=== PATIENT | male | born 1950 | race African-American/Black ===

== ENCOUNTER 2017-02-07 06:23 | Day surgery (SDC) | payer OTHER ==
--- NOTE | 2017-02-07 10:31 | Diag Imaging Result Document ---
PROCEDURE NAME: CHEST-2 VIEWS - 02/07/2017 INSPIRATORY AND EXPIRATORY CHEST, TWO VIEWS: COMPARISON: 01/26/2017. FINDINGS: Interval decrease in the size of the left pleural effusion. No postprocedural pneumothorax. There are small infiltrates bilaterally as well as atelectasis in the left base. Sternal wires are present and there are calcified right hilar lymph nodes. IMPRESSION: No postprocedural pneumothorax.
[2017-02-07 10:39] LABS: DIFF NEEDED? YES; SPECIMEN PLEURAL FLUID; WBC BF 1185 /cumm
[2017-02-07 10:42] VITALS: BP 166/66
[2017-02-07 10:45] LABS: MONOS 97 %; POLYS 3 %
[2017-02-07 11:27] LABS: TOTAL PROT BODY FLUID 3.3 g/dL
--- NOTE | 2017-02-07 15:05 | OPERATIVE NOTE ---
PROCEDURE DATE: 02/07/2017 PROCEDURE PERFORMED: Thoracentesis from the left hemithorax. CLINICAL INDICATIONS: Recurrent left-sided pleural effusion. SURGEON: Von Wei MD HISTORY OF PRESENT ILLNESS: The left hemithorax was evaluated under ultrasonography. Large area of pleural effusion. She was identified by the pawn broker and marked appropriately. The site was prepped and draped in the usual sterile fashion. Local anesthesia was achieved with 1% lidocaine. A plastic catheter was introduced into the left hemithorax with the aid of a stainless steel trocar. When pleural fluid was identified, the catheter was advanced and the trocar was retracted, 1300 mL of tea color fluid (with a slight red tint) was aspirated without difficulty. Pleural fluid will be sent for chemistries, white blood count, cultures, and cytology. The patient tolerated the procedure without difficulty. Postprocedure chest x-ray is pending.
== END 2017-02-07 10:46 | disposition home or self-care (01) ==
LOC: OPS 06:23
PROVIDERS: ATTEND Internal Medicine Pulmonary Disease
DX: J94.8 Other specified pleural conditions (principal); R06.09 Other forms of dyspnea; N18.3 Chronic kidney disease, stage 3 (moderate); E11.22 Type 2 diabetes mellitus with diabetic chronic kidney disease; E11.40 Type 2 diabetes mellitus with diabetic neuropathy, unspecified; I12.9 Hypertensive chronic kidney disease with stage 1 through stage 4 chronic kidney disease, or unspecified chronic kidney disease; I25.10 Atherosclerotic heart disease of native coronary artery without angina pectoris; Z95.1 Presence of aortocoronary bypass graft; D63.1 Anemia in chronic kidney disease; M19.90 Unspecified osteoarthritis, unspecified site; M10.9 Gout, unspecified; J30.9 Allergic rhinitis, unspecified; Z89.611 Acquired absence of right leg above knee; Z79.4 Long term (current) use of insulin; Z79.899 Other long term (current) drug therapy; Z81.8 Family history of other mental and behavioral disorders; Z80.9 Family history of malignant neoplasm, unspecified
CPT/HCPCS: 32555; 71020; 82150; 82945; 83615; 83986; 84157; 87070; 87102; 87116; 87147; 87205; 87206; 88112; 88305; 89051

== ENCOUNTER 2017-03-11 13:07 | Inpatient (IN) ==
[2017-03-11] MEDS ORDERED: NS 1,000 ML IV ONE (13:23)
[2017-03-11 13:29] LABS: MANUAL DIFF NEEDED? NO
[2017-03-11 13:33] LABS: BASO% 0.5 % (0.0-0.8); EOS# 0.51 X1000 (0.0-0.7); EOS% 9.2 % (0.0-10.0); HEMATOCRIT 30.9 % (42.0-52.0); HEMOGLOBIN 10.2 g/dL (14.0-18.0); LYMPH# 1.08 X1000 (1.2-3.4); LYMPH% 19.4 % (20.5-51.1); MCH 28.8 PG (27-31); MCV 87.3 FL (81-99); MONO% 12.6 % (1.7-9.3); MPV 11.1 FL (7.4-10.4); NEUT% 58.3 % (42.2-75.2); PLT 207 X1000 (130-400); RBC 3.54 XMIL (4.7-6.1)
[2017-03-11 13:45] LABS: ALBUMIN 3.6 g/dL (3.5-5.0); CALCIUM 9.2 mg/dL (8.8-10.2); POTASSIUM 4.9 mmol/L (3.5-5.1); TOTAL BILIRUBIN 0.41 mg/dL (0.20-1.00); TOTAL PROTEIN 9.3 g/dL (6.3-8.3)
[2017-03-11] MEDS ORDERED: TYLENOL ONE (13:53)
[2017-03-11] MEDS ORDERED: TYLENOL PO ONE (13:59)
[2017-03-11 15:05] LABS: URINE MICRO REVIEW NEEDED? NO; URINE SOURCE VOIDED
[2017-03-11 15:09] LABS: BILIRUBIN URINE NEGATIVE (NEGATIVE); BLOOD URINE SMALL (NEGATIVE); COLOR YELLOW; GLUCOSE URINE TRACE mg/dL (NEGATIVE); LEUKOCYTES URINE NEGATIVE (NEGATIVE); NITRITE URINE NEGATIVE (NEGATIVE); PROTEIN URINE 300 mg/dL (NEGATIVE); SP GRAVITY URINE 1.014; TURBIDITY URINE CLEAR (CLEAR); UROBILINOGEN URINE NORMAL (NORMAL)
[2017-03-11 15:10] LABS: UR EPITHELIAL CELLS <10 /HPF (<10); URINE BACTERIA NEGATIVE /HPF; URINE RBC <10 /HPF (<10); URINE WBC <10 /HPF (<10)
--- NOTE | 2017-03-11 15:58 | Diag Imaging Result Document ---
PROCEDURE NAME: CHEST-2 VIEWS - 03/11/2017 FRONTAL AND LATERAL CHEST, TWO VIEWS: COMPARISON: 02/07/2017 and 01/26/2017. FINDINGS: Sternal wires are present. The heart remains mildly prominent. There is a small left effusion. No right sided effusion. There are calcified right hilar lymph nodes. Minimal pulmonary edema. This is less pronounced than on the prior exam. IMPRESSION: Small left effusion with basilar atelectasis and minimal pulmonary edema.
--- NOTE | 2017-03-11 15:58 | PROVIDER DOCUMENTATION ---
HPI-Fever - General Chief Complaint: Fever Stated Complaint: SHAKEY, FEVER 103.4, HYPERGLYCEMIA Time Seen by Provider: 03/11/17 13:17 Source: patient Allergies/Adverse Reactions: Patient Allergies Allergy/AdvReac Type Severity Reaction Status Date / Time No Known Allergies Allergy Verified 03/11/17 17:29 Home Medications: Home Medication List Medication Instructions Recorded Confirmed Last Taken Type Gabapentin 300 mg PO TID 08/25/16 03/11/17 02/06/17 22:00 History Insulin Glargine [Lantus] 10 unit SUBQ QAM 08/25/16 03/11/17 02/06/17 07:00 History ATORVAstatin [Lipitor] 10 mg PO DAILY 03/11/17 03/11/17 Unknown History Furosemide [Furosemide] 40 mg PO PRN PRN 03/11/17 03/11/17 Unknown History Glipizide [Glipizide ER] 5 mg PO BID 03/11/17 03/11/17 Unknown History Losartan [Cozaar] 50 mg PO DAILY 03/11/17 03/11/17 Unknown History Metoprolol Succinate/Hctz 1 each PO DAILY 03/11/17 03/11/17 Unknown History [Metoprolol ER-Hctz 25-12.5 mg] Potassium Chloride 10 meq PO PRN PRN 03/11/17 03/11/17 Unknown History - History of Present Illness-Fever Nature of Presenting Problem: 66 yo diabetic presents with 4 days of increasing nasal congestion and cough. Today awoke with fever and shaking chills. 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 Cognitive Baseline: alert, oriented x3 Modifying Factors: improves with: coughing Associated Symptoms: reports: cough, fever/chills Similar Symptoms Previously?: Yes Review of Systems - Adult - REVIEW OF SYSTEMS - ADULT Constitutional: reports: chills, fever Eyes: reports: no symptoms reported Ears, Nose, Mouth & Throat: reports: sinus problem, throat pain Cardiovascular: reports: no symptoms reported Respiratory: reports: cough Gastrointestinal: reports: no symptoms reported Genitourinary: reports: no symptoms reported Musculoskeletal: reports: no symptoms reported Integumentary: reports: no symptoms reported Neurological: reports: numbness, other (diabetic neuropathy) Psychiatric: reports: no symptoms reported Past History - Adult - PAST MEDICAL HISTORY-ADULT Review of Records: reports: Old Records Reviewed, Nursing Assessment Review, Medications Reviewed Major Childhood Illnesses: reports: denies history Cardiovascular: reports: CHF, HTN, hyperlipidemia Respiratory: reports: asthma Gastrointestinal: reports: GERD Obstetrical/Gynecological: reports: denies history Genitourinary: reports: kidney disease Musculoskeletal: reports: chronic pain Neurological: reports: denies history Endocrine/Immune: reports: Diabetes Other Conditions: reports: denies history - PRIOR SURGERIES/PROCEDURES Surgical/Procedure History: reports: recent surgery (R great toe amputation), CABG - IMMUNIZATION STATUS Childhood Immunizations: See Nurse Assessment Flu Vaccine: See Nurse Assessment - FAMILY HISTORY Family History: reviewed, not pertinent Physical Exam-General - PHYSICAL EXAM-ADULT Initial Vital Signs Reviewed: Yes - CONSTITUTIONAL General Appearance: alert, no apparent distress - EYES Eyes: PERRL/EOMI - HEAD, EARS, NOSE, MOUTH & THROAT HENMT: moist mucous membranes, normal ENT inspection - NECK Neck: non-tender, full range of motion, supple, normal inspection - RESPIRATORY Respiratory: chest non-tender, lungs clear, normal breath sounds - CARDIOVASCULAR Cardiovascular: regular rate, rhythm Progress - PLAN OF CARE/RESULTS Progress/Plan/Lab Results: Vital Signs - 8 hr 03/11/17 13:28 03/11/17 15:03 03/11/17 16:00 Temperature 102.0 F H 102.0 F H Pulse Rate 74 70 Respiratory Rate 20 20 Blood Pressure 175/80 175/80 O2 Sat by Pulse Oximetry 98 91 L 03/11/17 17:00 03/11/17 18:11 Temperature Pulse Rate 69 75 Respiratory Rate 20 20 Blood Pressure 179/76 184/78 O2 Sat by Pulse Oximetry 95 94 L 03/11/17 13:13 Influenza Screen - Final Nasopharyngeal Laboratory Results - last 24 hr 03/11/17 03/11/17 03/11/17 12:57 12:57 13:44 WBC 5.57 RBC 3.54 L Hgb 10.2 L Hct 30.9 L MCV 87.3 MCH 28.8 MCHC 33.0 RDW Std Deviation 15.9 H Plt Count 207 MPV 11.1 H Neut % (Auto) 58.3 Lymph % (Auto) 19.4 L [place] % (Auto) 12.6 H Eos % (Auto) 9.2 Baso % (Auto) 0.5 Neut # (Auto) 3.25 Lymph # (Auto) 1.08 L [place] # (Auto) 0.70 H Eos # (Auto) 0.51 Baso # (Auto) 0.03 Specimen Type Sample Site pH pCO2 pO2 HCO3 Base Excess Oxyhemoglobin ABG O2 Sat (Calculated) ABG O2 Saturation ABG Carboxyhemoglobin ABG Methemoglobin Brando Test A-a O2 Difference Total Hemoglobin Lactate Blood Gas Modality FiO2 % Sodium 135 L Potassium 4.9 Chloride 101 Carbon Dioxide 19 L Anion Gap 15 BUN 38 H Creatinine 2.5 H Estimated GFR/1.73 m2 31 BUN/Creatinine Ratio 15 Glucose 150 H Calculated Osmolality 282 Calcium 9.2 Total Bilirubin 0.41 AST 17 ALT 12 Alkaline Phosphatase 115 Total Protein 9.3 H Albumin 3.6 Globulin 5.7 Albumin/Globulin Ratio 0.6 Plasma Lactate 1.6 Urine Source Urine Color Urine Turbidity Urine pH Ur Specific [place] Urine Protein Ur Glucose (Stick) Ur Ketones (Stick) Urine Blood Urine Nitrite Urine Bilirubin Urobilinogen Dipstick Urine Leukocytes Urine WBC (Auto) Urine RBC (Auto) U Epithel Cells (Auto) Urine Bacteria (Auto) 03/11/17 03/11/17 14:53 17:20 WBC RBC Hgb Hct MCV MCH MCHC RDW Std Deviation Plt Count MPV Neut % (Auto) Lymph % (Auto) [place] % (Auto) Eos % (Auto) Baso % (Auto) Neut # (Auto) Lymph # (Auto) [place] # (Auto) Eos # (Auto) Baso # (Auto) Specimen Type ARTERIAL Sample Site R RADIAL pH 7.41 pCO2 28 L pO2 55 L HCO3 20.2 Base Excess -6.0 L Oxyhemoglobin 91.5 L ABG O2 Sat (Calculated) 12.0 L ABG O2 Saturation 94.4 L ABG Carboxyhemoglobin 1.50 ABG Methemoglobin 1.6 H Brando Test YES A-a O2 Difference 60.0 Total Hemoglobin 9.3 L Lactate 0.80 Blood Gas Modality ROOM AIR FiO2 % 21.0 Sodium Potassium Chloride Carbon Dioxide Anion Gap BUN Creatinine Estimated GFR/1.73 m2 BUN/Creatinine Ratio Glucose Calculated Osmolality Calcium Total Bilirubin AST ALT Alkaline Phosphatase Total Protein Albumin Globulin Albumin/Globulin Ratio Plasma Lactate Urine Source VOIDED Urine Color YELLOW Urine Turbidity CLEAR Urine pH 6.0 Ur Specific [place] 1.014 Urine Protein 300 A Ur Glucose (Stick) TRACE Ur Ketones (Stick) NEGATIVE Urine Blood SMALL A Urine Nitrite NEGATIVE Urine Bilirubin NEGATIVE Urobilinogen Dipstick NORMAL Urine Leukocytes NEGATIVE Urine WBC (Auto) <10 Urine RBC (Auto) <10 U Epithel Cells (Auto) <10 Urine Bacteria (Auto) NEGATIVE Orders Category Date Time Status Saline Loc NOW Care 03/11/17 13:23 Active CHEST-2 VIEWS [RAD] Stat Exams 03/11/17 13:[address] THORAX W/O CONTRAST [CT] Stat Exams 03/11/17 15:31 Completed HEAD W/O CONTRAST [CT] Routine Exams 03/11/17 17:40 Completed ABG [RESP] Routine Lab 03/11/17 17:20 Completed BLOOD CULTURE [BLDCUL] Stat Lab 03/11/17 13:48 Results CBC WITH DIFF [HEME] Stat Lab 03/11/17 12:57 Completed CMP [COMPREHENSIVE METABOLIC PANEL] [CHEM] Stat Lab 03/11/17 12:57 Completed INFLUENZA SCREEN A/B Stat Lab 03/11/17 13:13 Completed LACTATE, PLASMA [CHEM] Stat Lab 03/11/17 13:44 Completed URINALYSIS-1 [URINALYSIS] Stat Lab 03/11/17 14:53 Completed 0.9% Sodium Chloride Inj [Ns] 1,000 ml Med 03/11/17 13:23 Discontinued IV 999 mls/hr Acetaminophen [Tylenol] Med 03/11/17 13:53 Discontinued 1,000 mg .ROUTE .STK-MED ONE Acetaminophen [Tylenol] Med 03/11/17 13:59 Discontinued 1,000 mg PO NOW ONE Azithromycin 500 mg/Ns [Zithromax 500 mg/Ns] Med 03/11/17 16:46 Discontinued 500 mg in 250 ml IV NOW CefTRIAXONE 1 GM/NS [Rocephin 1 gm/Ns] Med 03/11/17 16:46 Discontinued 1 gm in 50 ml IV NOW Pulse Oximetry Stat Oth 03/11/17 13:23 Active Transfer/Admit Order [TRANSFER] Routine Transfer 03/11/17 17:17 Ordered Result Diagrams: 03/11/17 12:57 03/11/17 12:57 - CONSULTS/PCP/HOSPITALIST Notification Time Discussed: 16:55 Reason/Comments: pneumonia Consult Disposition: Admit Departure - Departure Time of Disposition Decision: 16:55 DIAGNOSIS: Pneumonia Disposition: ADMITTED INPATIENT 09 Certified Medical Emergency: Emergent Condition: Stable
--- NOTE | 2017-03-11 16:45 | Diag Imaging Result Document ---
PROCEDURE NAME: CT THORAX W/O CONTRAST - 03/11/2017 CT CHEST WITHOUT CONTRAST: COMPARISON: 12/08/2016. FINDINGS: There is small to moderate sized left sided pleural effusion. This is actually slightly smaller than on the prior exam and currently measures 2.5 cm posteriorly and inferiorly in the midline. The heart remains enlarged and there are prominent coronary artery calcification. No thoracic aortic aneurysm. There are enlarged mediastinal lymph nodes similar to the prior exam as well as several calcified right hilar lymph nodes. There are nodular infiltrates posteriorly in the right upper lobe. Atelectasis remains in the left lower lobe. There are smaller nodular infiltrates in the right lower lobe. No bronchiectasis. IMPRESSION: 1. Small nodular infiltrates in the right upper and lower lobes. 2. Small to moderate sized left pleural effusion, slightly smaller than on the prior exam. 3. Cardiomegaly. 4. Prominent mediastinal lymph nodes, similar to prior exam. A preliminary report was given at 4:12 p.m.
[2017-03-11] MEDS ORDERED: ZITHROMAX 500 MG/NS 500 MG/250 ML IVPB IV ONE (16:46)
[2017-03-11] MEDS ORDERED: ROCEPHIN 1 GM/NS 1 GM/50 ML IVPB IV ONE (16:46)
[2017-03-11 17:27] LABS: ALLEN TEST YES; BLOOD TYPE ARTERIAL; DRAW SITE R RADIAL; METHB 1.6 % (0.0-1.5); PCO2(98.6) 28 mmHg (35-45); PO2(98.6) 55 mmHg (60-100); SAMPLE BLOOD; SAO2 94.4 % (95.0-100.0); THB 9.3 g/dL (11.5-17.4); pH(98.6) 7.41 (7.35-7.45)
[2017-03-11 17:28] LABS: MODALITY ROOM AIR
--- NOTE | 2017-03-11 18:11 | HISTORY AND PHYSICAL ---
PRIMARY CARE PROVIDER: ALBERT Rojas. CHIEF COMPLAINT: Chills, fever, and altered mental status. HISTORY OF PRESENT ILLNESS: Mr. Lazo is a 66-year-old male, well known to our service. He has a history of CAD, stage 4 CKD, type 2 diabetes mellitus, and recurrent pleural effusion, who presents with acute onset of chills and fever. He was in his normal state of health until today when he was on his way to the eye doctor. That appointment went without complication. However, on the way home, his friend who is at the bedside states that he began having chills and shaking. When she got home she called 911 and it was noted that he had a fever of 103. He denies any chest pain. He does report shortness of breath and a dry cough. No belly pain, nausea, or vomiting. When he got to the ER today he had a CT of the chest done which revealed small nodular infiltrates in the right upper and lower lobes, a moderate-size left pleural effusion slightly smaller than prior exam, and cardiomegaly. His laboratory data is unremarkable. Blood cultures have been obtained. We are now going to admit him for healthcare-associated pneumonia. PAST MEDICAL HISTORY: 1. Diabetes mellitus. 2. CAD. 3. Recurrent pleural effusions status post thoracentesis by Dr. Wei. 4. PAD status post right lower extremity AKA. 5. BPH. 6. CKD 4. 7. Anemia of chronic disease. 8. GERD. 9. Diastolic heart failure. 10. Chronic pain. PAST SURGICAL HISTORY: Right AKA, CABG, lower back surgery, left cataract, thyroid surgery, thoracentesis. SOCIAL HISTORY: Patient has a remote history of smoking. He denies any current alcohol, tobacco, or drug use. He has a friend who is at the bedside. FAMILY HISTORY: Significant for cancer and Alzheimer disease. ALLERGIES: No known drug allergies. HOME MEDICATIONS: Currently being compiled. REVIEW OF SYSTEMS: Ten point review of systems was obtained and found to be negative. PHYSICAL EXAMINATION: VITAL SIGNS: Blood pressure is 175/80, heart rate 74, respiratory rate 20, O2 saturation 98% on room air, temperature is 102 degrees. GENERAL: This is a disheveled and chronically ill appearing, 66-year-old male, lying in hospital bed, in no acute distress. NEUROLOGIC: The patient is awake, but he is somewhat lethargic and confused. He follows commands without focal deficits. He is unable to answer the date correctly but he answers all other orientation questions correctly. HEENT: Head is atraumatic and normocephalic. His pupils are equal, round, and reactive to light. Oral mucosa is a bit dry. Trachea is midline. There is no JVD. CHEST: Clear to auscultation. Decreased in the right lower lung zone. CV: Regular rate and rhythm. S1, S2 is noted. GI: Soft, nondistended, nontender. Bowel sounds positive. EXTREMITIES: Right AKA noted. Left lower extremity cool to touch but no edema. Pulses are diminished but palpable. DIAGNOSTIC DATA: WBC 5.57, hemoglobin 10.2, hematocrit 30.9, platelet count 207 ,000. ABG on room air, pH 7.41, CO2 28, O2 55, bicarb 20.2. Lactate 0.8. Sodium 135, potassium 4.9, chloride 101, CO2 19, anion gap 15, BUN 38, creatinine 2.5, glucose 150, calcium 9.2. LFTs within normal limits. Protein 9.3, lactate 1.6. UA is negative for acute process. ASSESSMENT AND PLAN: 1. Healthcare-associated pneumonia with early sepsis: We are going to place the patient on broad- spectrum antibiotics including MRSA coverage with vancomycin. We will continue breathing treatments and aggressive pulmonary toilet. We will check a chest x-ray in the morning. If no improvement within the next 12-24 hours would consider pulmonary consult with Dr. Wei. 2. Chronic kidney disease 4: Chronic and stable. Continue to monitor. 3. Diabetes mellitus: We will add pattern sugars and sliding scale insulin. Last hemoglobin A1c was last month at 5.8%. 4. Anemia of chronic disease: His hemoglobin and hematocrit is overall stable. We will continue to monitor and review any iron studies done recently. 5. Coronary artery disease: Patient denies any chest pain but given his comorbidities, we are going to go ahead and rule him out for myocardial infarction with cardiac enzymes. Continue his home medications once they are compiled. 6. Metabolic encephalopathy: The patient is slightly lethargic and confused. ABG does not show any hypercapnia. This is likely secondary to early sepsis or pneumonia. We are going to, however, check a head CT. 7. Moderate pleural effusion: Again we are going to monitor it. Will continue all of his breathing treatments and antibiotics. He may need another thoracentesis by Dr. Wei but we will recheck a chest x-ray in the morning. 8. Will add deep vein thrombosis prophylaxis with subcutaneous heparin. Further recommendations to follow. Dictated by ALBERT Garduno for Ayde Coker MD cc: ALBERT Garduno MD The patient was seen and examined by me. I agree with the assessment and plan as dictated. MTDD
--- NOTE | 2017-03-11 18:11 | Diag Imaging Result Document ---
PROCEDURE NAME: HEAD W/O CONTRAST - 03/11/2017 STUDY: CT brain without contrast. PROTOCOL: Dose reduction protocol. COMPARISON: Compared to 04/24/2011. No parenchymal hemorrhage. No epidural or subdural hematoma. No subarachnoid hemorrhage. No hydrocephalus. No mass identified on this noncontrasted exam. No sinus opacification. IMPRESSION: No hemorrhage. Negative brain CT without contrast. A preliminary report was given at 5:54 p.m.
[2017-03-11] MEDS ORDERED: DUONEB (A & A) INH PRN (20:36)
[2017-03-11] MEDS ORDERED: VANCOMYCIN IV PER PHARMACY MISC SCH (20:36)
[2017-03-11] MEDS: NS 1,000 ML IV SCH (21:55)
[2017-03-11] MEDS: HEPARIN SUBQ SCH (21:56)
[2017-03-11] MEDS: HUMALOG SUBQ SCH (21:56)
[2017-03-11] MEDS: ZOSYN 2.25 GM/NS 2.25 GM/50 ML IVPB IV SCH (21:56)
[2017-03-11] MEDS ORDERED: NORCO-7.5 PO PRN (22:49)
[2017-03-11] MEDS ORDERED: VANCOMYCIN 2,000 MG in NS 500 ML IV ONE (23:00)
[2017-03-12] MEDS: TYLENOL PO PRN ×2 (00:58→20:36)
[2017-03-12] MEDS: DUONEB (A & A) INH SCH ×5 (03:21→20:24)
[2017-03-12] MEDS: ZOSYN 2.25 GM/NS 2.25 GM/50 ML IVPB IV SCH ×4 (03:57→20:38)
[2017-03-12] MEDS: PRILOSEC PO SCH (06:12)
[2017-03-12] MEDS: HUMALOG SUBQ SCH (06:13)
[2017-03-12 07:28] LABS: HEMATOCRIT 27.3 % (42.0-52.0); HEMOGLOBIN 8.9 g/dL (14.0-18.0); MCH 28.6 PG (27-31); MCHC 32.6 g/dL (33-37); MCV 87.8 FL (81-99); MPV 10.5 FL (7.4-10.4); RBC 3.11 XMIL (4.7-6.1)
[2017-03-12 07:39] LABS: CALCIUM 8.5 mg/dL (8.8-10.2); POTASSIUM 4.4 mmol/L (3.5-5.1)
[2017-03-12] MEDS ORDERED: COZAAR PO SCH (09:00)
[2017-03-12] MEDS ORDERED: TOPROL XL PO SCH (09:00)
[2017-03-12] MEDS: LANTUS SUBQ SCH (09:03)
[2017-03-12] MEDS: NORCO-7.5 PO PRN (09:04)
[2017-03-12] MEDS: LIPITOR PO SCH (09:08)
[2017-03-12] MEDS: HEPARIN SUBQ SCH ×2 (09:09→20:38)
[2017-03-12] MEDS: NEURONTIN PO SCH ×3 (09:10→16:07)
[2017-03-12] MEDS: COREG PO SCH ×2 (10:14→20:36)
[2017-03-12] MEDS: FERROUS SULFATE PO SCH ×3 (10:14→16:06)
[2017-03-12] MEDS: FLOMAX PO SCH (10:14)
[2017-03-12] MEDS: NORVASC PO SCH (10:14)
[2017-03-12] MEDS: ASPIRIN EC PO SCH (10:14)
[2017-03-12] MEDS: NS 1,000 ML IV SCH (10:15)
--- NOTE | 2017-03-12 14:42 | PROGRESS NOTE ---
DATE: 03/12/2017 SUBJECTIVE: The patient is sitting up in bed. He does not have any complaints at this time. OBJECTIVE: Vital Signs: Temperature 99 degrees, blood pressure 160/54, heart rate 64, respirations 20, O2 saturations 96% on room air. General: This is an elderly male, sitting up in bed in no acute distress. Head: Normocephalic, atraumatic. Heart: S1 and S2 normal. Regular rate and rhythm. Lungs: Coarse breath sounds bilaterally. Equal air entry bilaterally. Abdomen: Positive bowel sounds. Soft, nontender, nondistended. Extremities: The patient has a right AKA. Neurologic: The patient is alert and oriented x3. LABORATORIES: White blood cell count 4.2, hemoglobin 8.9, hematocrit 27, platelets 151,000. Sodium 141, potassium 4.4, chloride 108, CO2 of 19, BUN 36, creatinine 2.8, glucose 92, calcium 8.5. ASSESSMENT AND PLAN: 1. Nodular pneumonia. Will continue on broad-spectrum antibiotic therapy. We will also order a sputum Gram stain and culture and immunoglobulin level. We will consult Infectious Disease. 2. Stage 4 chronic kidney disease. Stable. 3. Hypertension. Continue on the current antihypertensives. 4. Diabetes mellitus, type 2. Continue on sliding scale insulin plus Lantus. 5. Diabetic neuropathy. Continue on Neurontin. 6. Deep vein thrombosis prophylaxis. Continue on heparin 5000 units subcutaneously every 12 hours. 7. Will consult Physical Therapy. cc: Ayde Coker MD
[2017-03-12] MEDS: HUMULIN R SUBQ SCH ×2 (17:06→20:38)
[2017-03-13] MEDS: ZOSYN 2.25 GM/NS 2.25 GM/50 ML IVPB IV SCH ×2 (02:09→08:03)
[2017-03-13] MEDS: DUONEB (A & A) INH SCH ×4 (03:38→20:16)
[2017-03-13] MEDS: HUMULIN R SUBQ SCH ×4 (06:04→21:55)
[2017-03-13] MEDS: PRILOSEC PO SCH (06:05)
[2017-03-13 07:39] LABS: HEMATOCRIT 28.6 % (42.0-52.0); HEMOGLOBIN 9.3 g/dL (14.0-18.0); MCH 28.6 PG (27-31); MCHC 32.5 g/dL (33-37); RBC 3.25 XMIL (4.7-6.1)
[2017-03-13] MEDS: TYLENOL PO PRN ×2 (07:54→22:02)
[2017-03-13] MEDS: ASPIRIN EC PO SCH (08:02)
[2017-03-13] MEDS: COREG PO SCH ×2 (08:02→21:54)
[2017-03-13] MEDS: NEURONTIN PO SCH ×3 (08:02→16:31)
[2017-03-13] MEDS: LIPITOR PO SCH (08:02)
[2017-03-13] MEDS: FLOMAX PO SCH (08:02)
[2017-03-13] MEDS: NORVASC PO SCH (08:02)
[2017-03-13] MEDS: FERROUS SULFATE PO SCH ×3 (08:02→16:30)
[2017-03-13] MEDS: HEPARIN SUBQ SCH ×2 (08:03→21:55)
[2017-03-13] MEDS: LANTUS SUBQ SCH (08:05)
[2017-03-13 08:13] LABS: CALCIUM 8.3 mg/dL (8.8-10.2); POTASSIUM 4.5 mmol/L (3.5-5.1)
[2017-03-13] MEDS ORDERED: NS 1,000 ML IV SCH (10:12)
[2017-03-13] MEDS: APRESOLINE PO SCH ×2 (13:16→21:55)
--- NOTE | 2017-03-13 14:57 | PROGRESS NOTE ---
DATE: 03/13/2017 SUBJECTIVE: The patient complains of a productive cough. He was noted to be febrile this morning with a temperature of 102.6 degrees, OBJECTIVE: Vital Signs: Temperature 102.6 degrees, blood pressure 195/72, heart rate 80, respirations 18, O2 saturations 96% on room air. General: This is a chronically ill-appearing elderly male lying in bed in no acute distress. Head: Normocephalic, atraumatic. Heart: S1, S2. Normal. Regular rate and rhythm. Lungs: Coarse breath sounds bilaterally , equal air entry bilaterally. Abdomen: Positive bowel sounds. Soft, nontender, nondistended. Extremities: The patient has a right AKA. Neurologic: The patient is alert and oriented x3. LABS: White blood cell count 5, hemoglobin 9.3, hematocrit 28, platelets 145, 000. Sodium 136, potassium 4.5, chloride 104, CO2 16, BUN 35, creatinine 3.1, glucose 107, calcium 8.3, magnesium 1.8. ASSESSMENT AND PLAN: 1. Pneumonia. Will consult ID. The patient continues to have high fevers. The patient is currently on Zosyn and vancomycin. Will d/c the zosyn and start Merrem. Continue on bronchodilator therapy. 2. Accelerated hypertension. Will add hydralazine. Continue on Coreg. 3. Acute kidney injury on chronic kidney disease. Will order urine studies and check a renal ultrasound. Will also start the patient on gentle IV fluid hydration. Will also place a sanchez catheter to record the patient's urine output. 4. Anemia of chronic disease. The patient's hemoglobin and hematocrit are stable. 5. Diabetes mellitus type 2. Continue on Lantus plus sliding scale insulin. 6. Benign prostatic hypertrophy. Continue on Flomax. 7. Deep vein thrombosis prophylaxis. Continue on heparin 5000 units subcutaneous every 12 hours. cc: Ayde Coker MD MTDD
[2017-03-13] MEDS ORDERED: XYLOCAINE 2% JELLY UROJECT TOP ONE (15:53)
--- NOTE | 2017-03-13 16:01 | Diag Imaging Result Document ---
PROCEDURE NAME: US RENAL 2 (RETROPER) COMPLETE - 03/13/2017 RENAL ULTRASOUND: FINDINGS: The right kidney measures 11.2 x 4.7 x 3.8 cm. Normal renal echogenicity and cortical thickness. No renal stone or hydronephrosis. No renal mass. The left kidney measures 11.7 x 4.5 x 6.3 cm. Normal renal echogenicity and cortical thickness. No renal stone or hydronephrosis. No definite renal mass. The urinary bladder is moderately distended. The prostate indents the base of the bladder and measures 5.0 cm. IMPRESSION: Normal renal ultrasound.
[2017-03-13] MEDS: MERREM 500 MG in NS 50 ML IV SCH (16:30)
[2017-03-13] MEDS: NORCO-7.5 PO PRN (16:38)
[2017-03-13 17:24] LABS: URINE CULTURE NEEDED? NO; URINE SOURCE CATH
[2017-03-13 17:34] LABS: BILIRUBIN URINE NEGATIVE (NEGATIVE); BLOOD URINE SMALL (NEGATIVE); COLOR YELLOW; GLUCOSE URINE TRACE mg/dL (NEGATIVE); LEUKOCYTES URINE NEGATIVE (NEGATIVE); NITRITE URINE NEGATIVE (NEGATIVE); PROTEIN URINE 600 mg/dL (NEGATIVE); SP GRAVITY URINE 1.023; TURBIDITY URINE HAZY (CLEAR); UROBILINOGEN URINE NORMAL (NORMAL)
[2017-03-13 17:37] LABS: UR EPITHELIAL CELLS >10 /HPF (<10); URINE BACTERIA NEGATIVE /HPF; URINE MICRO REVIEW NEEDED? YES; URINE WBC <10 /HPF (<10)
[2017-03-13 17:38] LABS: URINE CASTS GRANULAR PRESENT
[2017-03-13 17:55] LABS: UR CREAT RANDOM 179.5 mg/dL (14-26); UR PROT RANDOM > 600.0 mg/dL; UR SODIUM 70 mmoll
[2017-03-13] MEDS: ZYVOX PO SCH (21:56)
--- NOTE | 2017-03-13 22:57 | CONSULTATION ---
DATE OF CONSULTATION: 03/13/2017 CONCLUSION: 66-year-old male with multiple medical problems is admitted the hospital with chills, fever, and an altered mental status. I think this could be due to a pulmonary infection. RECOMMENDATIONS: I agree with the decision to treat the patient with meropenem and I have substituted Zyvox for vancomycin in view of the fact that the patient already has renal insufficiency. DISCUSSION: I was unable to obtain a history from the patient. No family member was present. According to the information in the computer, the patient had chills and fever. He came to the emergency room there and a CT scan showed nodular infiltrates in the right upper and lower lobes and a left-sided pleural effusion. The patient was admitted to the hospital. He has had fever in the hospital and today it is 102.6. The patient's CBC shows a white count of 5000, hemoglobin 9.3, and platelet count 145,000. Creatinine is 3.1. GFR is 24. CT scan of the chest shows right- sided nodules and left pleural effusion and prominent mediastinal nodes. The patient has negative blood cultures. His sputum is growing a normal buck. Swab for influenza is negative. CT scan of the head was negative and it did not have any sinus opacifications. REVIEW OF SYSTEMS: Unable to obtain. PAST MEDICAL HISTORY: Of diabetes mellitus, coronary artery disease, recurrent pleural effusions, peripheral vascular disease especially on the right leg which he ended up having to have an above- the-knee amputation. The patient also has benign prostatic hypertrophy, chronic kidney disease, anemia of chronic disease, gastroesophageal reflux disease, congestive heart failure and chronic pain. PAST SURGICAL HISTORY: Positive for [id number] amputation on the right side , coronary bypass surgery, lower back surgery, left cataract eye surgery, thyroid surgery and thoracentesis. SOCIAL HISTORY: The patient has a remote history of smoking. He denies currently drinking alcoholic beverages or smoking cigarettes or using drugs. FAMILY HISTORY: Positive for cancer and Alzheimer disease. ALLERGIES: The patient has no known drug allergies. HOME MEDICATIONS: Include gabapentin, insulin, Lasix, ferrous sulfate, Flomax , hydrocodone, carvedilol, aspirin, amlodipine, metoprolol with hydrochlorothiazide and Lipitor. PHYSICAL EXAMINATION: Vital Signs: The temperature is 102.6, pulse 80, respirations 18, blood pressure 195/72. Patient's weight is 186 pounds. General: This is an ill- appearing, elderly male. He is in no acute distress. Head, eyes, ears, nose, and throat: He can hear my spoken words and see near objects. He has very few teeth left and they are not in good shape. Neck: No meningismus. Thorax: Increased AP diameter of the chest. Lungs: Clear to auscultation. Cardiovascular: Heart rate was regular. There is diminished peripheral pulses. Abdomen: Soft and nontender. Extremities: Patient has a right [id number] amputation. Neurologic: Patient is awake. When I asked him questions he could not answer them but he did follow requests to move his extremities. There was no tremor. Thank you for the consult. cc: Frederick Maria MD MTDD
[2017-03-13] MEDS ORDERED: VANCOMYCIN 1,650 MG in NS 250 ML IV SCH (23:00)
[2017-03-13] MEDS ORDERED: VANCOMYCIN 1,450 MG in NS 250 ML IV SCH (23:00)
[2017-03-14] MEDS: MERREM 500 MG in NS 50 ML IV SCH ×2 (01:41→15:22)
[2017-03-14] MEDS: DUONEB (A & A) INH SCH ×6 (03:27→22:38)
[2017-03-14] MEDS: APRESOLINE PO SCH ×3 (04:53→21:47)
[2017-03-14] MEDS: HUMULIN R SUBQ SCH ×4 (06:19→21:49)
[2017-03-14] MEDS: PRILOSEC PO SCH (06:19)
[2017-03-14 07:16] LABS: HEMOGLOBIN 8.7 g/dL (14.0-18.0); MCH 28.8 PG (27-31); MCHC 33.5 g/dL (33-37); MCV 86.1 FL (81-99); MPV 9.8 FL (7.4-10.4); RBC 3.02 XMIL (4.7-6.1)
[2017-03-14 07:59] LABS: CALCIUM 7.8 mg/dL (8.8-10.2); POTASSIUM 4.4 mmol/L (3.5-5.1)
--- NOTE | 2017-03-14 08:19 | Diag Imaging Result Document ---
PROCEDURE NAME: CHEST-PORTABLE - 03/14/2017 AP PORTABLE CHEST AT 0500 HOURS: FINDINGS: There is worsening alveolar opacification bilaterally, particularly in the perihilar region of the right upper lobe and the lingula. The lungs are not as well expanded as on 03/11/2017. IMPRESSION: Worsening pulmonary edema and/or pneumonia.
[2017-03-14] MEDS: HEPARIN SUBQ SCH ×2 (09:31→21:49)
[2017-03-14] MEDS: ASPIRIN EC PO SCH (09:31)
[2017-03-14] MEDS: COREG PO SCH ×2 (09:31→21:47)
[2017-03-14] MEDS: FLOMAX PO SCH (09:31)
[2017-03-14] MEDS: FERROUS SULFATE PO SCH ×3 (09:31→16:43)
[2017-03-14] MEDS: NORVASC PO SCH (09:31)
[2017-03-14] MEDS: ZYVOX PO SCH ×2 (09:31→21:47)
[2017-03-14] MEDS: NEURONTIN PO SCH ×3 (09:31→16:43)
[2017-03-14] MEDS: LIPITOR PO SCH (09:31)
[2017-03-14] MEDS: LANTUS SUBQ SCH (09:32)
[2017-03-14] MEDS: TYLENOL PO PRN (11:21)
[2017-03-14] MEDS: TESSALON PO SCH ×4 (11:22→21:51)
--- NOTE | 2017-03-14 12:22 | PROGRESS NOTE ---
DATE: 03/14/2017 SUBJECTIVE: Patient reports qdom-vj-aptyypet cough, and he is still spiking a fever. OBJECTIVE: Vital Signs: Temperature 101.8 degrees, heart rate 71, respiratory rate 15, blood pressure 190/60, O2 saturation 92% 2 L nasal cannula. General: This is a chronically ill- appearing, elderly -[place] male, lying in bed, in no acute distress. HEENT: Head is normocephalic, atraumatic. Anicteric sclerae and pale conjunctivae. Mucous membranes moist. Neck supple. No JVD noted. No carotid bruits. No lymphadenopathy. No thyromegaly. Cardiovascular: S1, S2 heard. No murmurs, gallops, or rubs. Regular rate and rhythm. Chest: Lungs are clear bilaterally to auscultation. No work of breathing or using accessory muscles. Abdomen is soft, nontender to palpation. Bowel sounds present. No organomegaly. Extremities: Patient has a right bfslg-riu-shmi amputation. Neurologic: The patient is alert and oriented x3. Moves 4 extremities. LABORATORY DATA: Reviewed. ASSESSMENT AND PLAN: 1. Community-acquired pneumonia. The patient is still spiking fever, so Infectious Disease specialist, Dr. Maria, has been consulted and currently his current treatment has been changed to meropenem and Zyvox. 2. Accelerated hypertension. Hydralazine has been added to his current treatment, and blood pressure is definitely much better controlled. 3. Ygsbj-ca-bzxsxoa kidney disease. We will continue with IV fluids. 4. Anemia of chronic disease. The patient's hemoglobin is stable. 5. Diabetes, type 2. We will continue with Lantus and sliding scale insulin. 6. Benign prostatic hypertrophy. We will continue with Flomax. 7. Deep vein thrombosis prophylaxis with Lovenox. cc: Devin Clarke MD
--- NOTE | 2017-03-14 12:36 | PROGRESS NOTE ---
DATE: 03/14/2017 PRESENT ILLNESS: The patient currently is being treated for severe pneumonia. MEDICATIONS: The patient currently is receiving meropenem and Zyvox. PHYSICAL EXAMINATION: Vital Signs: Temperature is 101.8 degrees, pulse 71, respirations 15, blood pressure 180/68. General, this is an ill-appearing, elderly male who is coughing continually but brings up very little sputum. He did bring up sputum, however, that had a yellowish- brown discoloration to it. Lungs clear to auscultation. Cardiovascular: Heart rate was regular. Abdomen soft and nontender. Neurologic: The patient is somewhat lethargic. I think he is just worn out from coughing so much. He did move his extremities. The patient does have a right mqkgb-dfb-glgt amputation. LABORATORY DATA AND X-RAY: Chest x-ray shows worsening infiltrates. The CBC for today shows a white count of 5300, hemoglobin 8.7, and platelet count 121,000. Sputum Gram stain shows gram- positive cocci. Blood cultures are negative. A swab for influenza is negative as well. ASSESSMENT AND PLAN: Patient has a severe pneumonia. My plan is to continue the current antibiotics of the meropenem and Zyvox and also add azithromycin. Patient's comorbidities: He is elderly. He has had recurrent pleural effusions. He has chronic kidney disease, gastroesophageal reflux disease, congestive heart failure, anemia of chronic disease. He does have a remote history of smoking cigarettes. cc: Frederick Maria MD
[2017-03-14] MEDS ORDERED: ZITHROMAX PO SCH (13:00)
[2017-03-14] MEDS ORDERED: LASIX IV ONE (13:30)
--- NOTE | 2017-03-14 14:06 | Diag Imaging Result Document ---
PROCEDURE NAME: CHEST-PORTABLE - 03/14/2017 PORTABLE CHEST: TIME: 1340 hours. FINDINGS: There is patchy alveolar opacity bilaterally. There is relative sparring of the right lower lobe and left upper lobe. This appearance was also present on 03/14/2017 at 0500 hours but is worse than on 03/11/2017. IMPRESSION: Patchy bilateral pneumonia.
--- NOTE | 2017-03-14 16:23 | ECHO REPORT ---
ORDER DATE: 03/14/2017 ECHOCARDIOGRAPHIC MEASUREMENTS: 1. Interventricular septum 1.8. Left ventricular posterior wall 1.5. Diastolic diameter 4.6. Left atrium 4.4. Aorta 3.0. 2. Normal left ventricular cavity size. Estimated ejection fraction of 60%. There is concentric left ventricular hypertrophy. 3. Aortic valve leaflets are sclerosed. 4. Tricuspid valve was normal. 5. Mitral valve was normal. 6. There was moderate tricuspid regurgitation. Peak velocity across the tricuspid valve was 4.4 m/sec. Pulmonary artery systolic pressure of 88 mmHg. There is severe pulmonary arterial hypertension. 7. The peak velocity across the aortic valve was 2.9 m/sec. There is aortic sclerosis, cannot rule out mild aortic stenosis, probable aortic sclerosis associated with mild aortic regurgitation. 8. Right ventricle is mildly dilated with reduced right ventricular systolic function. 9. Technically suboptimal study. 10. There is no pericardial effusion or obvious intracardiac mass or thrombus seen. cc: MD Frederick Blas MD
--- NOTE | 2017-03-14 16:34 | CONSULTATION ---
DATE OF CONSULTATION: 03/14/2017 REASON FOR CONSULTATION: Chronic kidney disease. HISTORY OF PRESENT ILLNESS: Mr. Lazo is a 66-year-old black male with a history of chronic kidney disease. He has a baseline creatinine ranging from 2.5 to 4. He was in his usual state of health until approximately Tuesday when he began having chills, fevers, cough, sputum production, shortness of breath. These symptoms were progressive in severity until he had a fever as high is 103. Because of this, he was transported by ambulance to the hospital. He had a detailed evaluation including a CT of the chest which revealed infiltrates in the right lung. He was admitted to the hospital and treated with empiric broad-spectrum antibiotics for possible hospital associated pneumonia. On presentation his kidney function was at his historical baseline with a creatinine of 2.5. He has received IV fluids and his fluid balance has been modestly positive by approximately 1.5 L since admission. His cough and sputum production have persisted. He continues to have fever. In this context, his creatinine has risen from 2.5-3.5 in the days that he has been in the hospital. PAST MEDICAL HISTORY: 1. Chronic kidney disease. 2. Diabetes. 3. Coronary disease. 4. Peripheral arterial disease. 5. Benign prostatic hypertrophy. 6. Chronic anemia. 7. Reflux esophagitis. 8. History of diastolic heart failure. HOME MEDICATIONS: Include insulin, gabapentin, atorvastatin, furosemide, metoprolol, tamsulosin, hydrocodone, carvedilol, aspirin, amlodipine, ferrous sulfate. ALLERGIES: None. SOCIAL HISTORY: Former smoker. No alcohol or tobacco currently. FAMILY HISTORY: Negative for kidney disease. REVIEW OF SYSTEMS: Otherwise not revealing. OBJECTIVE: Vital Signs: Blood pressure 180/68, heart rate 74, respirations 15, temperature 101.8 degrees. General: He is an acutely ill man lying at 45 degrees. Skin: Warm and dry. Conjunctivae are pink. Pupils are equal. Oropharynx is dry. Neck: Supple. Neck veins are distended. Heart: Regular with a gallop. Lungs: Have equal breath sounds. No crackles. Abdomen: Soft and nontender. Bowel sounds are present. Extremities: Have trace edema. No clubbing or cyanosis. LABORATORY DATA: Sodium 137, potassium 4.4, chloride 105, bicarbonate 14, BUN 38, creatinine 3.5, hemoglobin 8.7. IMPRESSION: 1. Chronic kidney disease stage 4 with modest rise in his creatinine since admission related to his hypercatabolic state. I have reviewed his medications. No changes are required at this time. Antibiotics are dosed appropriately. 2. Volume status. I believe he is modestly volume expanded and so I will stop his IV fluids and we will continue to reassess on a daily basis regarding his need for further resuscitation. 3. Electrolytes are in target. 4. Metabolic acidosis. Moderate. We will observe without treatment. cc: Sukhjinder Abbott MD
[2017-03-14 17:51] LABS: URINE MICRO REVIEW NEEDED? NO; URINE SOURCE VOIDED
[2017-03-14 17:56] LABS: BILIRUBIN URINE NEGATIVE (NEGATIVE); BLOOD URINE SMALL (NEGATIVE); COLOR YELLOW; GLUCOSE URINE TRACE mg/dL (NEGATIVE); LEUKOCYTES URINE NEGATIVE (NEGATIVE); NITRITE URINE NEGATIVE (NEGATIVE); PROTEIN URINE 600 mg/dL (NEGATIVE); SP GRAVITY URINE 1.019; TURBIDITY URINE HAZY (CLEAR); UR EPITHELIAL CELLS <10 /HPF (<10); URINE BACTERIA NEGATIVE /HPF; URINE WBC <10 /HPF (<10); UROBILINOGEN URINE NORMAL (NORMAL)
[2017-03-14 18:18] LABS: UR CREAT RANDOM 169.3 mg/dL (14-26); UR PROT RANDOM > 600.0 mg/dL; UR SODIUM 66 mmoll; UR UREA NITROGEN RANDOM 639 mg/dL
[2017-03-15] MEDS: MERREM 500 MG in NS 50 ML IV SCH ×2 (02:19→14:09)
[2017-03-15] MEDS: DUONEB (A & A) INH SCH ×6 (03:00→23:21)
[2017-03-15] MEDS: APRESOLINE PO SCH ×3 (04:35→21:33)
[2017-03-15] MEDS: TYLENOL PO PRN ×2 (04:35→16:37)
--- NOTE | 2017-03-15 05:01 | EKG Report ---
Test Performed on : 03/14/2017 4:21:24 PM Test Reason : sob Blood Pressure : / mmHG Vent. Rate : 068 BPM Atrial Rate : 068 BPM P-R Int : 214 ms QRS Dur : 106 ms QT Int : 426 ms P-R-T Axes : 046 073 068 degrees QTc Int : 452 ms Sinus rhythm. with 1st degree AV block. Otherwise normal ECG When compared with ECG of 03-JAN-2017 18:30, T wave inversion no longer evident in Lateral leads Confirmed by Harlan PATEL, Gianluca Huerta ([id number]) on 03/15/2017 7:15:30 PM
[2017-03-15] MEDS: HUMULIN R SUBQ SCH ×4 (06:58→21:33)
[2017-03-15] MEDS: PRILOSEC PO SCH (06:58)
[2017-03-15] MEDS: TESSALON PO SCH ×3 (08:31→16:37)
[2017-03-15] MEDS: LIPITOR PO SCH (08:31)
[2017-03-15] MEDS: NORVASC PO SCH (08:31)
[2017-03-15] MEDS: FLOMAX PO SCH (08:31)
[2017-03-15] MEDS: ASPIRIN EC PO SCH (08:31)
[2017-03-15] MEDS: COREG PO SCH ×2 (08:31→21:33)
[2017-03-15] MEDS: NEURONTIN PO SCH ×3 (08:31→16:37)
[2017-03-15] MEDS: FERROUS SULFATE PO SCH ×3 (08:31→16:37)
[2017-03-15] MEDS: ZYVOX PO SCH ×2 (08:31→21:33)
[2017-03-15] MEDS: HEPARIN SUBQ SCH ×2 (08:32→21:33)
[2017-03-15] MEDS: LANTUS SUBQ SCH (08:32)
[2017-03-15 08:57] LABS: HEMATOCRIT 24.9 % (42.0-52.0); HEMOGLOBIN 8.4 g/dL (14.0-18.0); MCH 28.4 PG (27-31); MCHC 33.7 g/dL (33-37); MCV 84.1 FL (81-99); MPV 10.4 FL (7.4-10.4); RBC 2.96 XMIL (4.7-6.1)
[2017-03-15 09:01] LABS: ALBUMIN 2.6 g/dL (3.5-5.0); CALCIUM 8.1 mg/dL (8.8-10.2); POTASSIUM 4.3 mmol/L (3.5-5.1)
--- NOTE | 2017-03-15 12:18 | PROGRESS NOTE ---
DATE: 03/15/2017 SUBJECTIVE: He is feeling better today. Less cough and shortness of breath. He is eating. OBJECTIVE: Vital Signs: Blood pressure 145/58, heart rate 62, respirations 20, T-max 102 degrees. Intake 700 mL. Output 900 mL. General: No acute distress. Skin: Warm and dry. HEENT: Conjunctivae are pink. Heart: Regular without gallops. Lungs: Have equal breath sounds. No crackles or wheezes. Abdomen: Soft, nontender. Bowel sounds present. Extremities: Have no edema, clubbing, or cyanosis. LABORATORY DATA: Sodium 135, potassium 4.3, chloride 103, bicarbonate 14, BUN 47, creatinine 4.3. IMPRESSION: 1. Acute kidney injury. BUN and creatinine continue to rise. He does not have acute indications for dialysis but he likely will develop them if acute kidney injury. He has chronic kidney disease with baseline creatinine ranging from 2.4 to 3.7. He is now out of that range. Good urine output. Observe. 2. Electrolytes. Acceptable. 3. Acid-base: Moderate metabolic acidosis. No intervention. cc: Sukhjinder Abbott MD
--- NOTE | 2017-03-15 14:44 | PROGRESS NOTE ---
DATE: 03/15/2017 PRESENT ILLNESS: The patient has a severe bilateral pneumonia. He seems clinically today to be better. He is more alert, he is coherent, and he is sitting up. RECOMMENDATIONS: I agree with continuing on with Zyvox and meropenem. I have discontinued azithromycin. PHYSICAL EXAMINATION: Vital Signs: Temperature is 99 degrees, pulse 58, respiration is 19, blood pressure 152/62. General: This is a chronically ill-appearing, elderly male. He does however look better today, he is more alert and talking more. Lungs: Clear to auscultation. Cardiovascular: Regular heart rate. Abdomen: Soft without masses or tenderness. Neurologic: The patient is less lethargic than he was yesterday. He is talking and smiling. LAB AND X-RAY: Chest x-ray shows bilateral pneumonia. IgG is elevated at 2681. IgA is also elevated at 558. Urinalysis shows no white cells or bacteria. Chest x-ray shows bilateral pneumonia. The sputum is growing a gram-negative magdi. Blood cultures and influenza swab are negative. The patient's CBC shows a white count of 5230, hemoglobin 8.4, and platelet count 115,000. Creatinine is 4.3. GFR is 17. ASSESSMENT AND PLAN: The patient has a severe pneumonia. My plan is to continue Zyvox and meropenem and discontinue azithromycin. The patient's sputum is growing gram negative magdi and there may be a change needed in the antimicrobial coverage. I am keeping going the Zyvox even though it does not have gram-negative coverage in case some gram positive organism is identified. ASSESSMENT AND PLAN: My plan is to continue with the patient on his 2 antibiotics and change may be indicated based on the identification of the gram-negative magdi in the patient's sputum. COMORBIDITIES: He is elderly, he has chronic pleural effusions, chronic kidney disease, gastroesophageal reflux disease, congestive heart failure, anemia of chronic disease, and a history of smoking cigarettes. cc: Frederick Maria MD
--- NOTE | 2017-03-15 15:56 | PROGRESS NOTE ---
DATE: 03/15/2017 SUBJECTIVE: Patient reports that he is feeling less short of breath although he reports spiking fever this morning. OBJECTIVE: Vital signs: Temperature 99.0 degrees, heart rate 58, respiratory rate 19, blood pressure 152/62, O2 saturation 100% on 3 L nasal cannula. General Examination: This is a chronically ill appearing, elderly male, lying in bed, in no acute distress. HEENT: Normocephalic, atraumatic. Anicteric sclerae and pale conjunctivae. Mucous membranes moist. Neck: Supple. No JVD noted. No carotid bruits. No lymphadenopathy. No thyromegaly. Cardiovascular: S1 and S2 heard. No murmurs, gallops, or rubs. Regular rate and rhythm. Respiratory: Clear bilaterally to auscultation. No work of breathing or using accessory muscles. Abdomen: Soft, nontender to palpation. Bowel sounds present. No organomegaly. Extremities: There are diminished breath sounds globally with some wheezing in both bases. Patient is not using any accessory muscles or having work of breathing. Abdomen: Soft, nontender to palpation. Bowel sounds present. No organomegaly. Extremities: Patient has a right egyzt-vkt-azkx amputation. Neurological: Patient alert and oriented x3. Moves 4 extremities. LABORATORY DATA: White cell count 5.33, hemoglobin 8.4, hematocrit 24.9, platelets 115,000. BMP unremarkable except creatinine of 4.3, and BUN 47. ASSESSMENT/PLAN: 1. Community-acquired pneumonia. Patient unfortunately is still spiking fever and antibiotics have been changed to Zyvox and meropenem. Dr. Maria is following this patient. By now, it is 24 hours since we have switched antibiotics and we will continue with the same med and will keep checking vitals every 6 hours. 2. Accelerated hypertension. The blood pressure is definitely much better controlled. We will continue with the same management. 3. Chronic kidney disease on hemodialysis. Acute kidney injury. BUN and creatinine continue to go up. Nephrology is following this patient and they said that he does not have an acute indication for dialysis. At this time, he is having good urine output. Will continue watching this patient and following recommendations from Nephrology. 4. Anemia of chronic disease. Hemoglobin is stable. 5. Diabetes mellitus type 2. We will continue with Lantus and sliding scale insulin. 6. Benign prostatic hypertrophy. We will continue with Flomax. cc: Devin Clarke MD
--- NOTE | 2017-03-15 19:51 | Diag Imaging Result Document ---
PROCEDURE NAME: THORAX/ABDOMEN/PELVIS W/O CONT - 03/15/2017 CT OF THE CHEST: FINDINGS: There are bilateral pleural effusions, more so on the left than the right. There is bilateral gynecomastia. Compared to the previous study of 03/11/2017. There is more pleural fluid on the right side. The left pleural effusion may also be slightly larger. There is marked volume loss and consolidation through much of the left lower lobe and patchy ground-glass and denser alveolar opacities are present in the right upper lobe with lesser degrees of opacification present in the lingula, right middle lobe and right lower lobe. This is worse than on the previous study. There is also some apparent edema in the subcutaneous fat which is worse than on the previous study. IMPRESSION: Worsening pneumonia and right pleural effusion. Mild anasarca. CT OF THE ABDOMEN/CT UROGRAM WITHOUT CONTRAST: FINDINGS: There is no evidence of nephrolithiasis. There is extensive arteriosclerosis of the arterial tree, including some of the segmental vessels in the kidneys. There are also calcifications around the head of the pancreas which may be vascular. There is no definite evidence of cholelithiasis or nephrolithiasis. No evidence of hydronephrosis is present. There is a small amount of fluid in the rectovesical pouch. The urinary bladder is somewhat distended. The prostate appears to be somewhat enlarged. It is at least 5 cm in AP diameter. There is no evidence of bowel obstruction. There are spondylotic changes in the lumbar spine. There is no evidence of acute bony disease. IMPRESSION: Arteriosclerosis and possible secondary hyperparathyroidism. Minimal free fluid and anasarca. No definite evidence of acute disease.
[2017-03-16] MEDS: MERREM 500 MG in NS 50 ML IV SCH ×2 (01:19→16:34)
[2017-03-16] MEDS: DUONEB (A & A) INH SCH ×6 (03:50→23:08)
[2017-03-16] MEDS: APRESOLINE PO SCH ×3 (04:46→20:24)
[2017-03-16] MEDS: HUMULIN R SUBQ SCH ×4 (06:40→20:25)
[2017-03-16 06:41] LABS: HEMATOCRIT 27.1 % (42.0-52.0); HEMOGLOBIN 9.1 g/dL (14.0-18.0); MCH 28.7 PG (27-31); MCHC 33.6 g/dL (33-37); MCV 85.5 FL (81-99); MPV 10.1 FL (7.4-10.4); RBC 3.17 XMIL (4.7-6.1)
[2017-03-16] MEDS: PRILOSEC PO SCH (06:41)
[2017-03-16 07:10] LABS: ALBUMIN 2.4 g/dL (3.5-5.0); CALCIUM 8.1 mg/dL (8.8-10.2); POTASSIUM 4.1 mmol/L (3.5-5.1)
[2017-03-16] MEDS: SPIRIVA INH SCH (07:38)
[2017-03-16] MEDS: TESSALON PO SCH (09:46)
[2017-03-16] MEDS: FLOMAX PO SCH (09:46)
[2017-03-16] MEDS: ASPIRIN EC PO SCH (09:47)
[2017-03-16] MEDS: ZYVOX PO SCH (09:47)
[2017-03-16] MEDS: COREG PO SCH ×2 (09:47→20:24)
[2017-03-16] MEDS: LIPITOR PO SCH (09:47)
[2017-03-16] MEDS: HEPARIN SUBQ SCH ×2 (09:47→20:24)
[2017-03-16] MEDS: NEURONTIN PO SCH ×3 (09:47→16:50)
[2017-03-16] MEDS: NORVASC PO SCH (09:47)
[2017-03-16] MEDS: LANTUS SUBQ SCH (09:50)
[2017-03-16] MEDS: FERROUS SULFATE PO SCH ×3 (10:02→16:50)
--- NOTE | 2017-03-16 10:53 | PROGRESS NOTE ---
DATE: 03/16/2017 SUBJECTIVE: The patient is sitting up in bed. He has continued to have a productive cough. He has been able to eat. OBJECTIVE: Vital Signs: Temperature 98 degrees, pulse 63 respiratory rate 20, blood pressure 136/55. Intake 1 L; output 1.1 L. General: Elderly gentleman resting in bed. Awake alert, in no acute distress. HEENT: Normocephalic, atraumatic. His oral mucosa is moist. Neck: Supple. There is no JVD. Cardiovascular: Regular rate and rhythm. There is no murmur or gallop appreciated. Pulmonary: He has equal excursion. He is clear bilaterally with no increased work of breathing. Abdomen: Soft with positive bowel sounds. : Not inspected. He is voiding. Extremities: No clubbing, cyanosis or edema. He is moving all extremities. Integumentary: Skin is warm and dry without rashes. LAB DATA: WBC of 4.7, hemoglobin 9.1. Sodium 135, potassium 4.1, CO2 16. BUN 55, creatinine 4.8. Phosphorus 4.4, albumin 2.4. ASSESSMENT AND PLAN: 1. Acute kidney injury with continued elevation of creatinine. His rising creatinine has slowed down over the last 24 hours. Multifactorial. The patient does not have any absolute indications for dialysis at this time. I did discuss with him that if he does develop those, we would discuss options. I will continue to monitor closely and make daily decisions. 2. Electrolytes, acid-base balance, anemia. These are stable. His acidosis is slightly improved. Continue to monitor. 3. Pneumonia. He is on appropriately-dosed antibiotics which do include vancomycin which may be related to #1. Dictated by ALBERT Farr for Sukhjinder Abbott MD cc: Sukhjinder Abbott MD
[2017-03-16] MEDS: LASIX IV SCH ×2 (13:43→20:24)
[2017-03-16] MEDS: ROBITUSSIN-AC PO SCH ×2 (14:38→20:25)
--- NOTE | 2017-03-16 14:49 | PROGRESS NOTE ---
DATE: 03/16/2017 PRESENT ILLNESS: The patient has severe bilateral pneumonia. He continues to improve clinically. He is awake and talking. Does not seem to be short of breath and he is sitting in the chair. MEDICATIONS: The patient is on a combination of Zyvox and meropenem. The meropenem dose has been decreased because of the patient's renal failure. PHYSICAL EXAMINATION: Vital Signs: Temperature is 98.3 degrees, pulse 65, respirations 19, blood pressure 149/59. General: This is a chronically ill-appearing, elderly male. He is in no acute distress. Lungs: Clear to auscultation. Cardiovascular: Heart rate is regular. Abdomen: Soft and nontender. Extremities: Legs are having a little bit of edema but no erythema. LAB AND X-RAY: There is no new x-ray today. The CBC for today shows a white count of 4,790, hemoglobin 9.1, and platelet count 108,000. Creatinine is 4.8 and the GFR is 15. ASSESSMENT AND PLAN: The patient has a severe pneumonia. I plan to continue with Zyvox and meropenem. The patient's sputum did come back and it grew pseudomonas fluorescens in vitro. This is susceptible to ceftazidime and Levaquin and Septra and Zosyn. I think I will go ahead and DC the meropenem and start the patient on ceftazidime. Also, I will go ahead and stop the patient's Zyvox and just treat with ceftazidime as a single agent for the patient's Pseudomonas pneumonia. The patient's comorbidity is that he is elderly, he has had pleural effusions, he has end-stage renal disease, gastroesophageal reflux disease, congestive heart failure, anemia of chronic disease, and a history of cigarette smoking. cc: Frederick Maria MD
[2017-03-16] MEDS: TAZIDIME 1 GM in NS 50 ML IV SCH (15:47)
--- NOTE | 2017-03-16 17:50 | PROGRESS NOTE ---
DATE: 03/16/2017 SUBJECTIVE: Patient reports is still feeling mildly short of breath. Denies any fever over the last 24 ours. OBJECTIVE: Vital signs: Temperature 98.3, heart rate 65, respiratory rate 19, blood pressure 149/59, O2 saturation 100% 2 liters nasal cannula. General: This is a chronically ill appearing elderly male, 66 years old, sitting in the chair in no acute distress. HEENT: Head is normocephalic and atraumatic. Anicteric sclerae. Pale conjunctivae. Mucous membranes are moist. Neck: Supple. No JVD noted. No carotid bruit. No lymphadenopathy. No thyromegaly. Cardiovascular exam: S1, S2 heard. No murmurs, gallops, or rubs. Regular rate and rhythm. Respiratory exam: Coarse breath sounds still present in both pulmonary ruiz, and patient is not using any accessory muscles or having work of breathing. Abdomen: Soft, nontender to palpation. Bowel sounds present. No organomegaly. Extremities: No clubbing, cyanosis, or edema. Peripheral pulses present in the left leg. Right above-knee amputation noted. Neurological exam: Patient alert and oriented x3. Able to move four extremities. LABORATORY DATA: White cell count 4.79, hemoglobin 9.1, hematocrit 27.1, platelets 108. BMP unremarkable except creatinine 4.8 and BUN 55. ASSESSMENT AND PLAN: 1. Community-acquired pneumonia. During the last 24 hours, patient has not spiked any more fever. Antibiotics that this patient is currently received are Zyvox and meropenem. Dr. Maria is following this patient as well. At this point, we will continue with the same management. 2. Accelerated hypertension. Blood pressure is definitely much better controlled. We will continue with the same management. 3. Chronic kidney disease. Creatinine is stable, so Nephrology thinks that this patient does not need to be on any dialysis. Will continue following this patient. 4. Anemia of chronic disease. Hemoglobin is stable. 5. Diabetes mellitus type 2. Will continue with Lantus and sliding scale insulin. 6. Benign prostatic hypertrophy. Will continue with Flomax. Overall, this patient is still having mild shortness of breath. Chest x-rays reveal mild pulmonary edema, so we are going to start this patient on Lasix and will see how this patient does tomorrow. cc: Devin Clarke MD
[2017-03-17] MEDS: TAZIDIME 1 GM in NS 50 ML IV SCH ×2 (02:25→14:15)
[2017-03-17] MEDS: DUONEB (A & A) INH SCH ×6 (03:00→22:41)
[2017-03-17] MEDS: PRILOSEC PO SCH ×2 (05:24→06:33)
[2017-03-17] MEDS: APRESOLINE PO SCH ×3 (05:24→21:02)
[2017-03-17] MEDS: HUMULIN R SUBQ SCH ×4 (06:33→21:03)
[2017-03-17 07:05] LABS: HEMATOCRIT 25.7 % (42.0-52.0); HEMOGLOBIN 8.6 g/dL (14.0-18.0); MCH 28.4 PG (27-31); MCHC 33.5 g/dL (33-37); MCV 84.8 FL (81-99); MPV 10.8 FL (7.4-10.4); RBC 3.03 XMIL (4.7-6.1)
[2017-03-17] MEDS: SPIRIVA INH SCH (07:28)
[2017-03-17 07:34] LABS: ALBUMIN 2.5 g/dL (3.5-5.0); CALCIUM 8.2 mg/dL (8.8-10.2); POTASSIUM 4.3 mmol/L (3.5-5.1)
[2017-03-17] MEDS: LANTUS SUBQ SCH (08:34)
[2017-03-17] MEDS: ROBITUSSIN-AC PO SCH ×4 (08:34→22:38)
[2017-03-17] MEDS: ASPIRIN EC PO SCH (08:34)
[2017-03-17] MEDS: LASIX IV SCH ×2 (08:34→21:02)
[2017-03-17] MEDS: HEPARIN SUBQ SCH ×2 (08:35→21:02)
[2017-03-17] MEDS: COREG PO SCH ×2 (08:39→21:02)
[2017-03-17] MEDS: NORVASC PO SCH (08:39)
[2017-03-17] MEDS: FERROUS SULFATE PO SCH ×3 (08:39→17:42)
[2017-03-17] MEDS: NEURONTIN PO SCH ×3 (08:39→17:42)
[2017-03-17] MEDS: FLOMAX PO SCH (08:39)
[2017-03-17] MEDS: LIPITOR PO SCH (08:39)
--- NOTE | 2017-03-17 10:46 | PROGRESS NOTE ---
DATE: 03/17/2017 PRESENT ILLNESS: The patient has bilateral pneumonia with pleural effusions. Specifically, the patient as a Pseudomonas fluorescens pneumonia. MEDICATIONS: Yesterday, I started the patient on ceftazidime. PHYSICAL EXAMINATION: Vital Signs: Temperature is 97.8 degrees, pulse 62, respirations 24, blood pressure 135/58. General: This is a chronically ill-appearing, elderly male. He is in no acute distress. Cardiovascular: Heart rate is regular. Lungs: Clear to auscultation. Abdomen: Soft and nontender. Neurologic: Patient is alert and coherent. LAB AND X-RAY: CBC today shows a white count of 4970, hemoglobin 8.6, and platelet count 116,000. Creatinine is 4.7. GFR is 15. As mentioned above, the patient's sputum grew Pseudomonas fluorescens. ASSESSMENT AND PLAN: I am treating the patient now with ceftazidime. This will be day 1 of treatment for his Pseudomonas pneumonia. COMORBIDITIES: Include end-stage renal disease, pleural effusions, gastroesophageal reflux disease, congestive heart failure, anemia of chronic disease, and a history of cigarette smoking. cc: Frederick Maria MD
[2017-03-17] MEDS ORDERED: MIRALAX PO SCH (13:00)
--- NOTE | 2017-03-17 13:51 | Diag Imaging Result Document ---
PROCEDURE NAME: CHEST-2 VIEWS - 03/17/2017 TWO VIEWS THE CHEST: COMPARISON: 03/14/2017 FINDINGS: There appears to be a small increase in pleural fluid present, particularly on the right side. There continues to be patchy alveolar opacities bilaterally. This is probably not changed significantly. IMPRESSION: Patchy pneumonia plus/minus pulmonary edema with small right pleural effusion.
--- NOTE | 2017-03-17 15:54 | PROGRESS NOTE ---
DATE: 03/17/2017 SUBJECTIVE: Patient reports breathing a little bit better in comparing with yesterday. Denies any fever or chills. OBJECTIVE: Vital Signs: Temperature 97.6 degrees, heart rate 65, respiratory rate 24, blood pressure 137/90. O2 saturation 95% on 3 L nasal cannula. General: This is a chronically ill- appearing and elderly 66-year-old male lying in bed in no acute distress. HEENT: Head is normocephalic, atraumatic. Anicteric sclerae and pale conjunctivae. Mucous membranes moist. Neck: Supple. No JVD noted. No carotid bruits. No lymphadenopathy. No thyromegaly. Cardiovascular: S1, S2 heard. No murmurs, gallops, or rubs. Regular rate and rhythm. Respiratory: Decreased breath sounds globally with some crackles and coarse breath sounds noted in both pulmonary ruiz. Patient is not using any accessory muscles or having work of breathing. Abdomen: Soft, nontender to palpation. Bowel sounds present. No organomegaly. Extremities: No clubbing, cyanosis, or edema. Peripheral pulses present in both legs. Neurological: Patient is alert and oriented x3. Able to move 4 extremities. Cranial nerves 2-12 grossly normal. LABORATORY DATA: Reviewed. ASSESSMENT AND PLAN: 1. Community-acquired pneumonia. During the last 48 hours, patient is not spiking any fever. A sputum culture shows Pseudomonas. Dr. Maria who was following this patient has changed the medications from Zyvox and meropenem to ceftazidime. We will continue with the same management. 2. Pulmonary edema. Patient has been started yesterday on Lasix 40 mg IV b.i.d. and since then the patient is breathing better. We are going to continue with the same management. 3. Accelerated hypertension. Blood pressure is now much better controlled. We will continue with the same management. 4. Chronic kidney disease. Patient is not a candidate for dialysis at this time according to Nephrology. We will see what they have to say. 5. Anemia of chronic disease. Hemoglobin is stable so far. 6. Diabetes mellitus type 2. Patient is on Lantus and sliding scale insulin. 7. Benign prostatic hypertrophy. We will continue with Flomax. 8. Overall, this patient is fine with x-rays that were repeated today, which basically show patchy pneumonia, plus pulmonary edema with small right pleural effusion. We will continue with the same management. cc: Devin Clarke MD
--- NOTE | 2017-03-17 16:11 | PROGRESS NOTE ---
DATE: 03/17/2017 SUBJECTIVE: The patient is sitting up in bed. He is immediately getting back to the bed from the chair, where he has been up for a little while today. OBJECTIVE: Vital Signs: Temperature 97.6 degrees, pulse 65, respiratory rate 24, blood pressure 137/92. Intake 530 mL. Output 700 mL. PHYSICAL EXAMINATION: General: This is an elderly gentleman resting in bed. He is awake, alert, in no acute distress. HEENT: Normocephalic, atraumatic. Oral mucosa moist. Pupils equal, round, and reactive to light. Neck: Supple. No jugular venous distention. Cardiovascular: Regular rate and rhythm without murmur or gallop. Pulmonary: He has equal excursion. He is clear bilaterally. He has no increased work of breathing. He has perhaps some decreased breath sounds to the posterior bases. Remains on O2 supplementation. Abdomen: Soft with positive bowel sounds. Genitourinary: Not inspected. He continues to void. Extremities: No clubbing, cyanosis, or edema. Right below the knee amputation noted. Integumentary: Skin is warm and dry otherwise. LAB DATA: WBC of 4.9, hemoglobin 8.6, sodium 133, potassium 4.3, chloride 101, CO2 15. BUN 61, creatinine 4.7, albumin 2.5. ASSESSMENT AND PLAN: 1. Acute kidney injury. Appears that his creatinine has plateaued overnight. His urine output is adequate. He has no absolute indication for dialysis at this time. Check labs in the morning. Continue to monitor. 2. Electrolytes, acid-base balance, anemia. These have been stable. 3. Pneumonia, on appropriately dosed antibiotics. 4. Fluid volume. He is euvolemic. Seen, data reviewed, discussed with Sanna Leon on 03/17/16. I agree with the above assessment and plan of care. rg Dictated by ALBERT Farr for Sukhjinder Abbott MD cc: Sukhjinder Abbott MD [facility]Any
[2017-03-17] MEDS: MIRALAX PO SCH (21:02)
[2017-03-18] MEDS: TAZIDIME 1 GM in NS 50 ML IV SCH ×2 (02:15→13:36)
[2017-03-18] MEDS: DUONEB (A & A) INH SCH ×6 (03:42→22:48)
[2017-03-18] MEDS: APRESOLINE PO SCH ×3 (05:52→22:21)
[2017-03-18] MEDS: PRILOSEC PO SCH (06:20)
[2017-03-18] MEDS: HUMULIN R SUBQ SCH ×4 (06:42→23:34)
[2017-03-18 07:20] LABS: HEMATOCRIT 25.2 % (42.0-52.0); HEMOGLOBIN 8.4 g/dL (14.0-18.0); MCH 27.9 PG (27-31); MCHC 33.3 g/dL (33-37); MCV 83.7 FL (81-99); MPV 11.8 FL (7.4-10.4); RBC 3.01 XMIL (4.7-6.1)
[2017-03-18] MEDS: SPIRIVA INH SCH (07:35)
[2017-03-18 07:52] LABS: ALBUMIN 2.6 g/dL (3.5-5.0); CALCIUM 7.8 mg/dL (8.8-10.2); POTASSIUM 4.3 mmol/L (3.5-5.1)
[2017-03-18] MEDS: LANTUS SUBQ SCH (09:34)
[2017-03-18] MEDS: MIRALAX PO SCH ×2 (09:35→22:21)
[2017-03-18] MEDS: COREG PO SCH ×2 (09:35→22:21)
[2017-03-18] MEDS: NORVASC PO SCH (09:35)
[2017-03-18] MEDS: HEPARIN SUBQ SCH ×2 (09:35→22:21)
[2017-03-18] MEDS: NEURONTIN PO SCH ×3 (09:36→18:31)
[2017-03-18] MEDS: FLOMAX PO SCH (09:36)
[2017-03-18] MEDS: LIPITOR PO SCH (09:36)
[2017-03-18] MEDS: FERROUS SULFATE PO SCH ×3 (09:36→18:31)
[2017-03-18] MEDS: ASPIRIN EC PO SCH (09:36)
[2017-03-18] MEDS: ROBITUSSIN-AC PO SCH ×3 (09:43→23:35)
--- NOTE | 2017-03-18 13:01 | PROGRESS NOTE ---
DATE: 03/18/2017 SUBJECTIVE: He is coughing less. His fever has resolved. He is eating. OBJECTIVE: Vital Signs: Blood pressure 137/60, heart rate 60, respirations 19, afebrile. Intake and output: Intake 400 mL. Output 1.1 L. General: No acute distress. Skin: Warm and dry. HEENT: Conjunctivae are pink. Neck: Neck veins are not distended. Heart: Regular. S4. Lungs: Have equal breath sounds. No crackles. Abdomen: Soft, nontender. Bowel sounds present. Extremities: Have 1+ edema. No clubbing or cyanosis. LABORATORY DATA: Sodium 135, potassium 4.3, chloride 102, bicarbonate 16, BUN 65, creatinine 4.4. IMPRESSIONS: 1. Acute kidney injury. His creatinine has plateaued and improved in the last 24 hours. BUN continues to rise and he is in negative fluid balance right now. I will stop his furosemide. Should continue to recover. 2. Acid-base: Moderate metabolic acidosis. No treatment at this time. 3. Anemia. Stable. 4. Hypertension, in target. cc: Sukhjinder Abbott MD
--- NOTE | 2017-03-18 14:15 | PROGRESS NOTE ---
DATE: 03/18/2017 PRESENT ILLNESS: The patient has a bibasilar pneumonia with the right pleural effusion. The pneumonia is being caused by Pseudomonas fluorescens. MEDICATIONS: This is day 2 of treatment with ceftazidime. PHYSICAL EXAMINATION: Vital Signs: Temperature is 97.8 degrees, pulse 60, respirations 19, blood pressure 137/60. General: This is a chronically ill-appearing, elderly male. He is in no acute distress, however. Lungs: Clear to auscultation. Cardiovascular: Regular heart rate. Abdomen: Soft and nontender. LAB AND X-RAY: CBC for today shows a white count of 5,320, hemoglobin 8.4, and platelet count 116,000. Creatinine is 4.4. GFR is 16. Chest x-ray shows bilateral opacities and a right pleural effusion. ASSESSMENT AND PLAN: The patient has a Pseudomonas pneumonia. This should be day 2 of treatment with ceftazidime. The patient's comorbidities include end-stage renal disease, pleural effusions, gastroesophageal reflux disease, congestive heart failure, anemia of chronic disease, and a history of cigarette smoking. cc: Frederick Maria MD
--- NOTE | 2017-03-18 14:55 | PROGRESS NOTE ---
DATE: 03/18/2017 SUBJECTIVE: Patient reports breathing better and he was able to walk around with assistance throughout the hallways getting minimally short of breath. OBJECTIVE: Vital Signs: Temperature 97.8, heart rate 60, respiratory 19, blood pressure 137/60, O2 saturation 99% on 2 L nasal cannula. General Examination: This is a chronically ill appearing and elderly 66-year-old male looking older than his age lying in bed in no acute distress. HEENT: Head is normocephalic, atraumatic. Anicteric sclerae and pale conjunctivae. Mucous membranes moist. Neck: Supple. No JVD noted. No carotid bruits. No lymphadenopathy. No thyromegaly. Cardiovascular: S1, S2 heard. No murmurs, gallops, or rubs. Regular rate and rhythm. Respiratory: Decreased breath sounds globally with some crackles and coarse breath sounds noted in both pulmonary ruiz definitely better in comparing with previous days. Patient is not using any accessory muscles or having work of breathing. Abdomen: Soft, nontender to palpation. Bowel sounds present. No organomegaly. Extremities: No clubbing, cyanosis, or edema. Peripheral pulses present in both legs. Neurological: Patient alert oriented x3. Moves 4 extremities. LABORATORY DATA: Reviewed. ASSESSMENT AND PLAN: 1. Community-acquired pneumonia. Patient is doing fine. Oxygen needs are coming down. Dr. Maria is following this patient and currently this patient is on ceftazidime. That is because the sputum culture showed Pseudomonas. Will continue with same management. 2. Pulmonary edema. Patient continues to be on Lasix 40 mg IV b.i.d. and patient definitely is breathing much better. Will continue with same management. 3. Accelerated hypertension. Blood pressure is better controlled. Will continue with the same medication. 4. Chronic kidney disease. Nephrology is following this patient and he is not a candidate for dialysis at this time. 5. Anemia of chronic disease. Hemoglobin stable so far. Will continue checking CBC daily. 6. Diabetes mellitus type 2. Patient is on Lantus and sliding scale insulin. Will continue with same management. 7. Benign prostatic hypertrophy. Will continue with Flomax. 8. Overall this patient is definitely clinically improving. Patient has pneumonia and also pulmonary edema, both conditions are getting better. Will continue with the same management. cc: Devin Clarke MD
[2017-03-19] MEDS: DUONEB (A & A) INH SCH ×6 (03:40→22:45)
[2017-03-19] MEDS: TAZIDIME 1 GM in NS 50 ML IV SCH ×2 (03:45→13:32)
[2017-03-19 03:58] LABS: CK INDEX 0.7 (0.0-2.5); CK-MB 2.23 ng/mL (0.0-5.0)
[2017-03-19] MEDS: APRESOLINE PO SCH ×3 (05:14→20:12)
[2017-03-19] MEDS ORDERED: INSULIN PEN NEEDLES ONE (06:31)
[2017-03-19] MEDS: HUMULIN R SUBQ SCH ×4 (06:42→21:06)
[2017-03-19] MEDS: PRILOSEC PO SCH (06:43)
[2017-03-19 07:13] LABS: HEMATOCRIT 26.2 % (42.0-52.0); HEMOGLOBIN 8.6 g/dL (14.0-18.0); MCH 28.1 PG (27-31); MCHC 32.8 g/dL (33-37); MCV 85.6 FL (81-99); MPV 10.4 FL (7.4-10.4); RBC 3.06 XMIL (4.7-6.1)
[2017-03-19] MEDS: SPIRIVA INH SCH (07:32)
[2017-03-19 07:33] LABS: ALBUMIN 2.6 g/dL (3.5-5.0); POTASSIUM 4.5 mmol/L (3.5-5.1)
[2017-03-19] MEDS: ROBITUSSIN-AC PO SCH ×3 (09:00→17:35)
[2017-03-19] MEDS: FERROUS SULFATE PO SCH ×3 (09:00→17:35)
[2017-03-19] MEDS: LANTUS SUBQ SCH (09:01)
[2017-03-19] MEDS: FLOMAX PO SCH (09:01)
[2017-03-19] MEDS: HEPARIN SUBQ SCH ×2 (09:01→20:11)
[2017-03-19] MEDS: NORVASC PO SCH (09:01)
[2017-03-19] MEDS: COREG PO SCH ×2 (09:01→20:12)
[2017-03-19] MEDS: ASPIRIN EC PO SCH (09:01)
[2017-03-19] MEDS: LIPITOR PO SCH (09:01)
[2017-03-19] MEDS: NEURONTIN PO SCH ×3 (09:01→17:35)
[2017-03-19] MEDS: MIRALAX PO SCH ×2 (09:02→20:12)
--- NOTE | 2017-03-19 11:57 | PROGRESS NOTE ---
DATE: 03/19/2017 SUBJECTIVE: Patient reports breathing better. As per family, who is at bedside, they reported the patient was walking back and forth from the room to the nursing station. He did not get short of breath. OBJECTIVE: Vital Signs: Temperature 98.6 degrees, heart rate 69, respiratory rate 16, blood pressure 160/64. O2 saturation 100% 2 L nasal cannula. General: This is a chronically ill- appearing, elderly 66-year-old male, lying in bed, in no acute distress. HEENT: Head is normocephalic, atraumatic. Anicteric sclerae and pale conjunctivae. Mucous membranes moist. Neck: Supple. No JVD noted. No carotid bruits. No lymphadenopathy. No thyromegaly. Cardiovascular: S1 and S2 heard. No murmurs, gallops, or rubs. Regular rate and rhythm. Respiratory: Decreased breath sounds globally with some crackles still present in both bases. Patient is not using any accessory muscles or having work of breathing. Abdomen: Soft, nontender to palpation. Bowel sounds present. No organomegaly. Extremities: No clubbing, cyanosis, or edema. Peripheral pulses present in both legs. Neurological: Patient is alert and oriented x3. Able to move 4 extremities. LABORATORY DATA: White cell count 5.64, hemoglobin 8.6, hematocrit 26.2, platelets 108,000. BMP shows creatinine 4.3, and BUN 6.2. ASSESSMENT AND PLAN: 1. Community-acquired pneumonia. Patient continues to improve clinically. Oxygen needs are coming down. Now requiring 2 L of oxygen by nasal cannula. Dr. Maria is following this patient and she is receiving ceftazidime. Today is day #3 of treatment. We have isolated Pseudomonas from the sputum culture. We will continue with the same management. 2. Pulmonary edema. Patient continues to be on Lasix 40 mg IV b.i.d. At this time, we can reduce the dosage of Lasix to 40 mg p.o. daily and see how this patient does. 3. Accelerated hypertension. Blood pressure is ranging between 130 and 160's. We will continue with the same management. 4. Chronic kidney disease. Creatinine is unchanged from previous days. Nephrology is following this patient and they said that he is not a candidate for dialysis at this time. We will follow recommendations. 5. Anemia of chronic disease. Hemoglobin is stable so far. We will continue CBC daily. 6. Diabetes mellitus type 2. Patient is on Lantus and sliding scale insulin. We will continue with the same management. Blood sugars are well controlled. 7. Benign prostatic hypertrophy. We will continue with Flomax. PLAN: Overall, this patient is doing good. On Tuesday, we will most probably discharge this patient with home health. We will check with Dr. Maria to see how long this patient will need ceftazidime. cc: Devin Clarke MD
--- NOTE | 2017-03-19 16:03 | PROGRESS NOTE ---
DATE: 03/19/2017 SUBJECTIVE: He is feeling well. He is complaining of pain in his mouth. Still coughing with sputum. OBJECTIVE: Vital Signs: Blood pressure 160/64, heart rate 77, respiration 19, afebrile. Intake and output: Intake 500 mL. Output 1.4 L. General: No acute distress. Skin: Warm and dry. HEENT: Conjunctivae are pink. Oropharynx with thrush. Neck: Supple. Neck veins are not distended. Heart: Regular. Lungs: Equal breath sounds. No crackles. Abdomen: Soft, nontender. Bowel sounds present. Extremities: Have no edema, clubbing, or cyanosis. LABORATORY DATA: Sodium 135, potassium 4.5, chloride 100, bicarbonate 16, BUN 62, creatinine 4.3. IMPRESSIONS: 1. Acute kidney injury. Baseline creatinine is approximately 3. Slow improvement. 2. Electrolytes are in target. 3. Thrush. Will add nystatin swish and swallow. 4. Metabolic acidosis. Roughly stable. cc: Sukhjinder Abbott MD
[2017-03-19] MEDS: MYCOSTATIN SUSP PO SCH ×2 (19:30→20:12)
[2017-03-20] MEDS: TAZIDIME 1 GM in NS 50 ML IV SCH ×2 (02:09→13:54)
[2017-03-20] MEDS: DUONEB (A & A) INH SCH ×6 (03:31→23:20)
[2017-03-20] MEDS: PRILOSEC PO SCH (06:13)
[2017-03-20] MEDS: APRESOLINE PO SCH ×3 (06:13→22:03)
[2017-03-20] MEDS: HUMULIN R SUBQ SCH ×3 (06:13→17:16)
[2017-03-20 06:50] LABS: HEMATOCRIT 26.8 % (42.0-52.0); HEMOGLOBIN 8.9 g/dL (14.0-18.0); MCHC 33.2 g/dL (33-37); MCV 84.3 FL (81-99); MPV 10.7 FL (7.4-10.4); RBC 3.18 XMIL (4.7-6.1)
[2017-03-20 07:06] LABS: ALBUMIN 2.8 g/dL (3.5-5.0); CALCIUM 8.5 mg/dL (8.8-10.2); POTASSIUM 4.7 mmol/L (3.5-5.1)
[2017-03-20] MEDS: SPIRIVA INH SCH (07:21)
[2017-03-20] MEDS: MIRALAX PO SCH ×2 (08:41→22:03)
[2017-03-20] MEDS: LIPITOR PO SCH (08:42)
[2017-03-20] MEDS: FLOMAX PO SCH (08:42)
[2017-03-20] MEDS: NORVASC PO SCH (08:42)
[2017-03-20] MEDS: MYCOSTATIN SUSP PO SCH ×4 (08:42→22:04)
[2017-03-20] MEDS: COREG PO SCH ×2 (08:42→22:03)
[2017-03-20] MEDS: FERROUS SULFATE PO SCH ×3 (08:42→17:17)
[2017-03-20] MEDS: NEURONTIN PO SCH ×3 (08:42→17:17)
[2017-03-20] MEDS: LANTUS SUBQ SCH (08:43)
[2017-03-20] MEDS: HEPARIN SUBQ SCH ×2 (08:43→22:03)
[2017-03-20] MEDS: LASIX PO SCH (08:43)
[2017-03-20] MEDS: ASPIRIN EC PO SCH (08:43)
[2017-03-20] MEDS: ROBITUSSIN-AC PO SCH ×3 (08:46→17:17)
--- NOTE | 2017-03-20 11:52 | PROGRESS NOTE ---
DATE: 03/20/2017 SUBJECTIVE: Patient reports feeling fine. No complaints today. OBJECTIVE: Vital Signs: Temperature 97.9 degrees, heart rate 60, respiratory rate 18, blood pressure 157/59, O2 saturation 100% on 2 L nasal cannula. General Examination: This is a chronically ill-appearing, elderly, 66-year-old male, lying in bed, in no acute distress. HEENT: Head is normocephalic, atraumatic. Anicteric sclerae. Pale conjunctivae. Mucous membranes moist. Neck: Supple. No JVD noted. No carotid bruits. No lymphadenopathy. No thyromegaly. Cardiovascular: S1, S2 heard. No murmurs, gallops, or rubs. Regular rate and rhythm. Respiratory: Decreased breath sounds globally. Some crackles still present but better in comparing with previous days. Patient is not using any accessory muscles or having work of breathing. Abdomen: Soft, nontender to palpation. Bowel sounds present. No organomegaly. Extremities: No clubbing, cyanosis, or edema. There is a right [id number] amputation. Peripheral pulses present in the left leg. Neurological: Patient is alert and oriented x3. Moves 4 extremities. LABORATORY DATA: White cell count 5.77, hemoglobin 8.9, hematocrit 26.8, platelets 113,000. BMP unremarkable except creatinine 3.6. ASSESSMENT: 1. Community-acquired pneumonia. Patient continues to improve clinically, requiring just 2 L of oxygen by nasal cannula. He is on ceftazidime, today is #[address] Maria from infectious disease is following him. We have isolated Pseudomonas from the sputum culture. We will continue with the same treatment. 2. Pulmonary edema. Patient is on Lasix b.i.d. We will continue with Lasix 40 mg p.o. daily. 3. Accelerated hypertension. Blood pressure is much better control and now ranging between 150s and 140s, for him it is okay. 4. Chronic kidney disease. Creatinine is a little bit better today. Nephrology is following this patient and they mentioned he is not a candidate for dialysis at this time. 5. Anemia of chronic disease. Hemoglobin is so far stable. Continue checking CBC daily. 6. Diabetes mellitus type 2. Patient is on Lantus and sliding scale insulin. We will continue with the same management. 7. Benign prostatic hypertrophy. We will continue with Flomax. PLAN: Overall this patient is doing good and will check with Dr. Maria for how long he plans to keep this patient on this antibiotics and most probably he will go home with home health. cc: Devin Clarke MD
--- NOTE | 2017-03-20 16:11 | Diag Imaging Result Document ---
PROCEDURE NAME: CHEST-2 VIEWS - 03/20/2017 FRONTAL AND LATERAL CHEST, 2 VIEWS: FINDINGS: Compared to 03/17/2017. There are bilateral infiltrates. The heart remains enlarged. There is a left-sided pleural effusion. IMPRESSION: Persistent bilateral infiltrates with a left effusion and basilar atelectasis as well as cardiomegaly.
[2017-03-21] MEDS: TAZIDIME 1 GM in NS 50 ML IV SCH (02:54)
[2017-03-21] MEDS: DUONEB (A & A) INH SCH ×3 (03:41→11:11)
[2017-03-21] MEDS: HUMULIN R SUBQ SCH ×3 (04:28→11:10)
[2017-03-21] MEDS: PRILOSEC PO SCH ×2 (05:36→07:25)
[2017-03-21] MEDS: APRESOLINE PO SCH ×2 (05:36→12:35)
[2017-03-21 07:19] LABS: ALBUMIN 2.7 g/dL (3.5-5.0); CALCIUM 8.6 mg/dL (8.8-10.2); POTASSIUM 4.3 mmol/L (3.5-5.1)
[2017-03-21] MEDS: SPIRIVA INH SCH (07:31)
[2017-03-21] MEDS: COREG PO SCH (09:44)
[2017-03-21] MEDS: LASIX PO SCH (09:44)
[2017-03-21] MEDS: NEURONTIN PO SCH ×2 (09:44→12:35)
[2017-03-21] MEDS: FERROUS SULFATE PO SCH ×2 (09:44→12:35)
[2017-03-21] MEDS: ASPIRIN EC PO SCH (09:44)
[2017-03-21] MEDS: MYCOSTATIN SUSP PO SCH ×2 (09:44→12:35)
[2017-03-21] MEDS: LIPITOR PO SCH (09:44)
[2017-03-21] MEDS: ROBITUSSIN-AC PO SCH ×2 (09:44→12:40)
[2017-03-21] MEDS: FLOMAX PO SCH (09:44)
[2017-03-21] MEDS: NORVASC PO SCH (09:44)
[2017-03-21] MEDS: MIRALAX PO SCH (09:45)
[2017-03-21] MEDS: LANTUS SUBQ SCH (09:45)
[2017-03-21] MEDS: HEPARIN SUBQ SCH (09:45)
--- NOTE | 2017-03-21 10:00 | PROGRESS NOTE ---
DATE: 03/21/2017 PRESENT ILLNESS: The patient has a bilateral pneumonia. He also has congestive heart failure with pulmonary edema. The pneumonia is caused by Pseudomonas fluorescens. MEDICATIONS: This is day 5 of treatment with ceftazidime. PHYSICAL EXAMINATION: Vital Signs: Temperature is 97.8 degrees, pulse 60, respirations 16, blood pressure 153/60. General: This is a chronically ill-appearing, elderly male. He is in no acute distress. Lungs: Clear to auscultation. Cardiovascular: Regular heart rate. Abdomen: Soft and nontender. Neurologic: Patient is alert. He can move his extremities. LAB AND X-RAY: Chest x-ray shows cardiomegaly, bilateral infiltrates, and a left pleural effusion. CBC shows a white count of 5770, hemoglobin 8.9, and platelet count 113,000. Creatinine is 3.5. The creatinine clearance is 21. ASSESSMENT AND PLAN: The patient has Pseudomonas pneumonia along with congestive heart failure and pulmonary edema. Whenever it is felt that the patient can go home from a cardiac point of view, I will switch the patient's antibiotics from ceftazidime to Levaquin. The dose will be modified because of the patient's renal failure. The Levaquin will be given orally. COMORBIDITIES: Include end-stage renal disease, pleural effusions, gastroesophageal reflux disease, congestive heart failure, anemia, and a history of cigarette smoking. cc: Frederick Maria MD
--- NOTE | 2017-03-21 11:09 | PROGRESS NOTE ---
DATE: 03/21/2017 SUBJECTIVE: Mr. Lazo is sitting up in bed. He states that he is feeling a little bit better. He started choking on a piece of pineapple. He has coughed this out and is feeling much better. Otherwise, denies chest pain or increased work of breathing. OBJECTIVE: Vital Signs: His most recent vital signs are temperature 97.5 degrees, blood pressure 131/87, heart rate 62, respirations 20. He is on room air. Last recorded saturation is 94-95%. He has had 530 in, he has had 0 recorded out, though he states that he has urinated yesterday and during the night. This is not recorded. PHYSICAL EXAMINATION: General: This is a 66-year-old male. He is currently resting in bed. He is awake and alert. He is in no acute distress. Skin: Warm and dry. HEENT: Normocephalic, atraumatic. Mucous membranes moist. Neck: Supple. Trachea midline. No jugular venous distention. Cardiovascular: Regular rate and rhythm without murmur or gallop. Lungs: Clear to auscultation anterior. He remains on room air. Equal excursion. Abdomen: Large, round, soft, nontender, with positive bowel sounds. Genitourinary: Not inspected. Patient has been voiding. Extremities: Have no edema. No clubbing or cyanosis. Right knee has amputation, below the knee amputation. Integumentary: Skin is warm and dry. Neurological : Alert and oriented x2. LABS: Most recent labs are sodium 137, potassium 4.3, chloride 105, CO2 17. BUN 59, creatinine 3.5, glucose 119. Anion gap of 15. Calcium 8.6, phosphorus 3.9, albumin 2.7. White count 5.77, hemoglobin 8.9, hematocrit 26.8, with a platelet count of a 113,000. ASSESSMENT AND PLAN: 1. Acute kidney injury. Appears that his creatinine has just slowly been drifting downward. He is down to 3.5 from 4 on Tuesday. We will continue to monitor and follow as an outpatient. rg 2. Electrolytes, acid-base balance, and anemia. These are stable. 3. Pneumonia. He is on renal dosed antibiotics. I would to thank you for allowing us to follow with this patient. Seen, data reviewed, discussed with Dmitry Ag on 03/21/17. I agree with the above assessment and plan of care. rg Dictated by ALBERT Miranda for Sukhjinder Abbott MD cc: ALBERT Miranda MD [facility]
[2017-03-21 12:28] VITALS: BP 135/64
--- NOTE | 2017-03-21 13:31 | DISCHARGE SUMMARY ---
ADMISSION DATE: 03/11/2017 DISCHARGE DATE: 03/21/2017 CONSULTATIONS: 1. Frederick Maria MD with Infectious Disease. 2. Sukhjinder Abbott MD with Nephrology. PERTINENT PROCEDURES: 1. Chest CT showed small nodular infiltrates in the right upper and lower lobe, small to moderate size left pleural effusion, slightly smaller than on prior exam. Cardiomegaly. Prominent mediastinal lymph nodes similar to prior exam. 2. Head CT showed no hemorrhage. Negative brain CT. 3. Renal ultrasound normal. 4. Echocardiogram showed an EF of 60%, concentric LVH. 5. Chest, abdomen, and pelvis CT showed worsening pneumonia and right pleural effusion. Mild anasarca, arterial sclerosis and possible secondary hyperparathyroidism. Minimal free fluid and anasarca. No definite evidence of acute disease. DISCHARGE DIAGNOSES: 1. Acute kidney injury. Patient has slowly trended down. His highest being a creatinine of 4.8. Followed by Nephrology. BUN is 59, creatinine is 3.5 on day of discharge. Patient's electrolytes and acid-base and anemia are stable. 2. Pseudomonas pneumonia. The patient will be discharged on p.o. Levaquin at reduced dosage secondary to his renal failure. 3. Pulmonary edema. Patient is switched from IV to p.o. He will remain on Lasix 40 mg p.o. daily. 4. Elevated hypertension. Patient's Norvasc has been increased as well as added Apresoline. 5. Chronic kidney disease followed by Dr. Sukhjinder Abbott. He is not a candidate for dialysis at this time. 6. Anemia of chronic disease, stable. 7. Diabetes mellitus type 2. Patient will continue on Lantus. 8. Benign prostatic hypertrophy. Continue with Flomax. 9. Metabolic encephalopathy, resolved. HOSPITAL COURSE: Mr. Lazo is a 66-year-old male known to our service. He carries a past medical history of coronary artery disease, stage 4 kidney disease, diabetes mellitus type 2 and recurrent pleural effusions. The patient presented to the ED on 03/11/2017 with acute onset of chills and fever. He was in his normal state of health until the day of his admission. He was at his eye doctor. After the appointment went without complication but on the way home he started having chills and shaking. He was noted to have a fever of 103. The patient also reported shortness of breath with dry cough. In the ED, he had a CT of the chest done that revealed small nodular infiltrates in the right lower lobe, a moderate size left pleural effusion, and cardiomegaly. His laboratory data was largely unremarkable. The patient was admitted for pneumonia with an ID consult. His chronic kidney disease at that time was chronic but stable. He was placed on sliding scale insulin. Monitored his hemoglobin and hematocrit closely. The patient was slightly lethargic and confused. An ABG did show hypercapnia. Head CT was performed that was negative. The patient had a normal renal ultrasound as well as an echocardiogram that showed an EF of 62% with concentric LVH. He was monitored closely by Nephrology. His acute kidney injury on chronic kidney disease was very slow to trend down, however, there was no indication for dialysis. His electrolytes and acid base remained on target and stable. For his pleural effusion, he was continued on IV Lasix for his pulmonary edema. He was then transitioned to p.o. 40 mg p.o. daily. Grit Removal Operator was consulted secondary to the patient needing rehab. The patient has been accepted to [facility] rehab. He will continue on p.o. Levaquin at a reduced dosage secondary to his chronic kidney disease. VITAL SIGNS: Vital signs at time of his discharge, temperature is 97.5 degrees, heart rate 60, respirations 20, blood pressure 131/87, O2 is 94% on room air. DISCHARGE DIET: Healthy heart. DISCHARGE MEDICATIONS: 1. Tylenol 650 mg p.o. q.6 h. p.r.n. 2. DuoNeb x3 mL inhaled q.2 h. p.r.n. wheezing. 3. DuoNeb 3 mL inhaled RT q.4 h. 4. Norvasc 10 mg p.o. daily. 5. Low-dose aspirin 81 mg p.o. daily. 6. Lipitor 10 mg p.o. daily. 7. Carvedilol 6.25 mg p.o. b.i.d. 8. Ferrous sulfate 325 mg p.o. t.i.d. 9. Lasix 40 mg p.o. daily. 10. Gabapentin 300 mg p.o. t.i.d. 11. Robitussin AC 10 mL p.o. t.i.d. 12. Apresoline 25 mg p.o. q.12 h. 13. [place] 7.5/325, 1-2 each p.o. q.4 h. p.r.n. 14. Lantus 10 units subcutaneously q.a.m. 15. Nystatin suspension 5 mL p.o. 4 times a day. 16. Prilosec 20 mg p.o. daily. 17. MiraLAX 17 g p.o. b.i.d. 18. Flomax 0.4 mg p.o. daily. 19. Spiriva 1 puff inhaled RT daily. DISCHARGE INSTRUCTIONS: The patient is being discharged to [facility] rehab. He will continue to follow with Dr. Abbott in regards to his chronic kidney disease as well as needs to maintain a primary care physician. The patient can return to the ED for any worsening symptoms. TIME SPENT: Discharge time greater than 30 minutes. Dictated by ALBERT Barragan for Devin Clarke MD cc: Devin Clarke MD
== END 2017-03-21 14:37 ==
LOC: ED 13:07 → SUATTDRO 18:57 → 3N 18:57
PROVIDERS: ATTEND Internal Medicine

== ENCOUNTER 2018-10-17 22:20 | Inpatient (IN) ==
--- NOTE | 2018-10-17 13:48 | HISTORY AND PHYSICAL ---
CHIEF COMPLAINT: Left diabetic foot ulcer with osteomyelitis. This is nonhealing. HISTORY OF PRESENT ILLNESS: A 68-year-old male with a chronic ulcer of his left great toe that has failed to heal over the last lafea-tie-p-half. He has undergone multiple debridements as an outpatient included debridement of his distal phalanx which shows osteomyelitis in it. He is not having any fevers, chills, nausea, vomiting, or other systemic complaints but the wound is failing to heal. PAST MEDICAL HISTORY: End-stage renal disease, diabetes, hypertension, atrial fibrillation, BPH, peripheral arterial disease, coronary artery disease. PAST SURGICAL HISTORY: Right AKA. CABG. Low back surgery. Thyroidectomy. Left cataract surgery. Left upper arm AV fistula. SOCIAL HISTORY: Negative for tobacco, alcohol, or illicit drug use. He lives with his spouse. FAMILY HISTORY: Positive for diabetes, otherwise noncontributory. ALLERGIES: No known drug allergies. HOME MEDICATIONS: 1. Coumadin. 2. Lantus. 3. Flomax. 4. Lasix. 5. Coreg. 6. Norvasc. 7. Lopressor. 8. PhosLo. 9. Aspirin. 10.BiDil. 11.Zaroxolyn. 12.Bactrim. REVIEW OF SYSTEMS: Reviewed and noncontributory. PHYSICAL EXAM: VITAL SIGNS: He is afebrile. Vital signs are stable. GENERAL: He is alert and oriented x3 in no acute distress. RESPIRATORY: No work of breathing. EXTREMITIES: His left great toe has an open wound with exposed bone and dry gangrene around the soft tissues of the distal toe. There is no odor but there is some slight purulent discharge in the depth of the wound. ASSESSMENT AND PLAN: A 68-year-old male with nonhealing left diabetic toe ulcer with osteomyelitis. Severe peripheral arterial disease and multiple other medical comorbidities. He has been difficult to schedule outpatient workup and treatment, therefore he is being admitted for vascular evaluation, IV antibiotics, and future surgical intervention depending on his workup. We will consult Dr. Jeronimo and obtain a CT angiogram of the aorta and lower extremities. And consult Dr. Abbott for assistance with his dialysis and medications. cc: MD Dr. Phani Sung MD
[2018-10-17] MEDS: HUMULIN R SUBQ SCH (23:00)
[2018-10-17] MEDS: COREG PO SCH (23:00)
[2018-10-17] MEDS ORDERED: LOVENOX SUBQ SCH (23:00)
[2018-10-17 23:09] LABS: BASO# 0.02 X1000 (0.0-0.2); BASO% 0.2 % (0.0-0.8); EOS# 0.14 X1000 (0.0-0.7); EOS% 1.4 % (0.0-10.0); HEMATOCRIT 28.2 % (42.0-52.0); HEMOGLOBIN 9.1 g/dL (14.0-18.0); LYMPH# 1.85 X1000 (1.2-3.4); LYMPH% 18.2 % (20.5-51.1); MCH 30.1 PG (27-31); MCHC 32.3 g/dL (33-37); MCV 93.4 FL (81-99); MONO# 1.71 X1000 (0.11-0.59); MONO% 16.8 % (1.7-9.3); MPV 9.4 FL (7.4-10.4); NEUT# 6.44 X1000 (1.4-6.5); NEUT% 63.4 % (42.2-75.2); PLT 323 X1000 (130-400); RBC 3.02 XMIL (4.7-6.1); RDW 15.9 % (11.5-14.5); WBC 10.16 X1000 (4.8-10.8)
[2018-10-17 23:23] LABS: INR 1.21; PROTIME 16.2 Seconds (11.0-16.0)
[2018-10-17 23:24] LABS: PTT 48.2 Seconds (22.3-41.8)
[2018-10-17] MEDS: LOPRESSOR PO SCH (23:30)
[2018-10-17 23:42] LABS: CALCIUM 9.8 mg/dL (8.8-10.2); POTASSIUM 4.2 mmol/L (3.5-5.1)
[2018-10-17] MEDS ORDERED: D50W SYRINGE IV PRN (23:54)
[2018-10-18] MEDS: FLOMAX PO SCH ×2 (00:55→21:39)
[2018-10-18] MEDS ORDERED: VANCOMYCIN 1 GM/NS 1 GM/250 ML IVPB IV ONE (01:00)
[2018-10-18] MEDS ORDERED: LOVENOX SUBQ SCH (01:45)
[2018-10-18] MEDS: LOPRESSOR PO SCH ×4 (06:15→23:29)
[2018-10-18] MEDS: HUMULIN R SUBQ SCH ×4 (07:00→23:30)
[2018-10-18] MEDS ORDERED: VANCOMYCIN 1 GM/NS 1 GM/250 ML IVPB IV SCH (08:15)
[2018-10-18] MEDS ORDERED: NS 2,000 ML MISC PRN (08:29)
[2018-10-18] MEDS ORDERED: TIGHT: 0.2 ML/HR FOR DIALYSIS MISC PRN (08:29)
[2018-10-18] MEDS ORDERED: HEPARIN IV PRN (08:29)
[2018-10-18] MEDS: ASPIRIN PO SCH (08:49)
[2018-10-18] MEDS: NORVASC PO SCH (08:49)
--- NOTE | 2018-10-18 09:54 | Diag Imaging Result Doc PS360 ---
EXAM: CT ANGIOGRAM AORTA W/RUNOFF 10/17/2018 HISTORY: NON HEALING TOE INJURY/do in morning TECHNIQUE: This exam was performed using automated exposure control, adjustment of mA or kV according to patient size, and/or use of iterative reconstruction technique. COMMENT: 3-D MIPS were performed. Comparison is made with the CT examinations of the chest abdomen and pelvis from 03/15/2017, and the CT of the chest performed on 04/22/2018. There is opacification of the posterior left lower lobe inferiorly which was also the case at the time the previous examination. There is ill-defined opacity in the visualized portion of the right lower lobe posteriorly which was not the case at the time the previous study. This may be a result of atelectasis versus pneumonia. There may be some ostial stenosis of the celiac artery with poststenotic dilatation. There is noncalcified plaque narrowing the ostial portion of the superior mesenteric artery and there is extensive calcification in the SMA with apparent stenosis distally. One of the mesenteric branches going to the left of the midline around image 62 of the 3 mm series is apparently occluded. The inferior mesenteric artery is patent. There is apparent stenosis in the mid left renal artery. There is no evidence of abdominal aortic aneurysm. There is dense calcification in the common iliac arteries bilaterally. Both external iliac and common femoral arteries appear to be patent. There has been amputation above the knee on the right. There is dense calcification throughout much of the superficial femoral artery on the left. There is calcific and noncalcific plaque narrowing the vessel in the adductor canal. There is high-grade stenosis in the popliteal artery on the left. There is dense calcification in the anterior tibial and tibioperoneal trunk. Dense calcification is present in the trifurcation vessels. The patient moved during the initial acquisition and an additional series was performed in the lower leg. The posterior tibial artery is occluded proximally. It is not clear whether there is any flow in the anterior tibial or peroneal artery beyond the upper calf. There is an apparent bone infarct in the distal femoral shaft on the left. There is no evidence of bowel obstruction or intra-abdominal abdominal fluid. There is a fair amount of stool present in the right colon. There is no evidence of hydronephrosis or mass in the kidneys. There are no apparent gallstones. The liver is unremarkable in appearance. The pancreas is stable in appearance. The urinary bladder is slightly distended. IMPRESSION: Severe atheromatous changes as described including the left renal artery and superior mesenteric artery. Very poor runoff beyond the distal superficial femoral artery on the left. Electronically signed by Lee Guevara 10/18/2018 9:52 AM
[2018-10-18] MEDS: COREG PO SCH ×2 (10:08→21:39)
--- NOTE | 2018-10-18 16:12 | GENERAL SURGERY PROGRESS NOTE ---
DATE: 10/18/2018 SUBJECTIVE: The patient feels tired today after dialysis; otherwise, no new complaints. OBJECTIVE: He is afebrile. Vital signs are stable. General: He is awake, alert, in no acute distress. Extremities: The left foot wound is dressed with a clean dry dressing. LABORATORY: White blood cell count 10, hemoglobin 9.1, hematocrit 28. INR 1.2. Sodium 130, potassium 4.2, chloride 89, CO2 of 27. BUN 37, creatinine 8.0 IMAGING: CT angiogram of the aorta with runoff shows severe atherosclerotic disease involving the left renal artery, superior mesenteric artery, superficial femoral artery, popliteal artery, and very poor runoff below the knee on the left. ASSESSMENT AND PLAN: A 68-year-old male with severe peripheral arterial disease and a nonhealing great toe ulcer status post debridement and partial amputation. There is osteomyelitis in the distal great toe. He is on vancomycin. Previous cultures reveal MRSA. We are awaiting Dr. Jeronimo's evaluation for any revascularization attempts, although it looks unlikely that the toe and foot can be salvaged given the CT angiogram findings. cc: Jaskaran Wright MD
[2018-10-18] MEDS: MORPHINE IV PRN ×2 (19:52→23:29)
[2018-10-18] MEDS: LOVENOX SUBQ SCH (21:39)
--- NOTE | 2018-10-19 03:00 | GENERAL SURGERY CONSULTATION ---
DATE: 10/18/2018 CHIEF COMPLAINT: Nonhealing left great toe ulcer. HISTORY OF PRESENT ILLNESS: This is a pleasant 68-year-old gentleman, with an ulceration of the left great toe that is nonhealing. It has been present for more than a month. Despite multiple debridements, it has now no evidence of healing, and now has chronic osteomyelitis. OTHER MEDICAL PROBLEMS: End-stage renal disease, diabetes, hypertension, atrial fib, peripheral arterial disease, coronary artery disease, and BPH. PREVIOUS SURGERIES: A right AKA and a left upper arm fistula. Also, coronary bypass. SOCIAL HISTORY: Denies tobacco usage. He is . MEDICATIONS: Listed. Includes Coumadin. ALLERGIES: He has no known drug allergies. PHYSICAL EXAMINATION: Vital Signs: He is afebrile. Heart rate 66, blood pressure 119/49. He has a fistula in the left upper arm. Lungs: Clear. Heart: Irregular rate and rhythm. Abdomen: Soft. Extremities: Left femoral pulse is present no popliteal pulses present. He has a dry gangrene of the left great toe, with discoloration. No palpable pedal pulses. CT angiogram is reviewed. He has calcific vessels throughout. It is difficult to determine where there is flow, but certainly he has some occlusion in the SFA and the tibial vessels. He has calcified vessels in his foot. ASSESSMENT: He has a wound on his great toe that will not heal. I do not think it is amenable to any revascularization. An amputation of the left great toe will not heal either. I would recommend a higher amputation. I would probably consider checking PVRs to see if he has pulsatile flow below the knee. If so, he might be considered for a BK amputation. cc: MD Jaskaran Landeros MD
[2018-10-19] MEDS: LOPRESSOR PO SCH ×5 (06:51→23:13)
[2018-10-19] MEDS: HUMULIN R SUBQ SCH ×4 (06:52→21:28)
--- NOTE | 2018-10-19 07:26 | NEPHROLOGY CONSULTATION ---
DATE: 10/18/2018 REASON FOR ADMISSION: Left diabetic foot nonhealing ulcer. REASON FOR CONSULT: Assistance with medical management, ESRD and dosing of antibiotics. CONSULTING PHYSICIAN: Jaskaran Wright MD. HISTORY OF PRESENT ILLNESS: Mr. Lazo is a 68-year-old, male, who has been treated on an outpatient basis for left great toe ulcer nonhealing. This has failed to heal over the last month and a half. It is stated that he has gone through multiple debridements as well as outpatient debridement and distal phalanx removal, with distal phalanx now indicating osteomyelitis. He has been evaluated and hospitalized. He has had a CT angiogram to his lower extremities, possibly indicating that his foot may not be salvaged. They are awaiting further evaluation per Dr. Jeronimo. The patient is a known end-stage renal disease patient followed by Dr. Paz. He dialyzes at the [facility] on Tuesday, Tuesday, Tuesday. He has notified them that he will not be available for dialysis. We will plan for dialysis today. He is confused at this time. His is at his bedside. He is unable to give any review of systems. She also is a poor historian. He currently denies any specific pain. No fever or chills. No nausea, vomiting, or diarrhea. PAST MEDICAL HISTORY: End-stage renal disease with hemodialysis at [facility] on spring on Tuesday, Tuesday, Tuesday. Diabetes mellitus type 2, hypertension, atrial fibrillation, BPH, peripheral artery disease, coronary artery disease, nonhealing diabetic wound to the left foot. PAST SURGICAL HISTORY: He has a right AKA, CABG, low back surgery, thyroidectomy, left cataract surgery, left upper arm AV fistula. This has positive thrill. SOCIAL HISTORY: He is . He lives with his spouse. Negative for tobacco , alcohol or illicit drug use. FAMILY HISTORY: Positive for diabetes. Negative for end-stage except for patient himself. CURRENT ALLERGIES: Listed as no known drug allergies. HOME MEDICATIONS: Coumadin, Lantus, Flomax Lasix, Coreg, Norvasc, Phos-Lo, aspirin, BiDil, Zaroxolyn, Bactrim and Lopressor. REVIEW OF SYSTEMS: Best obtained per patient and at the bedside with pertinent positives listed above in the HPI. VITAL SIGNS: Temperature is 98.1, blood pressure 114/62, heart rate 66, respirations 14. He has had zero recorded in or out at the time of evaluation. LABS: Sodium 130, potassium 4.2, chloride 89, CO2 of 27, BUN 37, creatinine 8, glucose 182. Anion gap of 14, calcium 9.8. White count 10.16, hemoglobin 9.1, hematocrit 28.2, with a platelet count of 323. PHYSICAL EXAMINATION: General: This is a 68-year-old, male, resting quietly in bed. He is in no acute distress though he appears slightly confused. HEENT: Normocephalic, atraumatic. Conjunctiva is pale pink. He has ARMAND. Mucous membranes are dry. Neck: Supple. Trachea midline. No JVD in the upright position. Cardiovascular: He is irregularly irregular rate and rhythm on the monitor. Lungs: Clear to auscultation anteriorly, equal excursion on room air. Abdomen: Soft, nontender. Positive bowel sounds. Genitourinary: Not inspected. Minimal void with dialysis assist. Extremities: Has left great toe open wound with exposed bone and dry gangrene to the soft tissue. There is no odor. There is some drainage noted. He has a right AKA. No edema present. Neurological: As mentioned above. ASSESSMENT AND PLAN: 1. Chronic kidney disease stage 5D. The patient is due for his routine dialysis treatment today. We will place him on a 2K bath. He is to dialyze for 3.5 hours. We will attempt to pull patient to his outpatient dry weight. 2. Electrolytes and acid-base balance. Mild hyponatremia secondary to #1 with correction on dialysis. 3. Anemia, this is low but stable. 4. Nonhealing diabetic wound to the left foot. This is followed by the surgical team. I would like to thank you for allowing us to follow with this patient. Dictated by ALBERT Miranda for Sukhjinder Abbott MD Face to face encounter, data reviewed, discussed with Dmitry Ag. I agree with the above assessment and plan of care. cc: ALBERT Miranda MD Jason R. Seale, MD [facility]
[2018-10-19] MEDS: COREG PO SCH ×2 (09:14→21:30)
[2018-10-19] MEDS: ASPIRIN PO SCH (09:14)
[2018-10-19] MEDS: NORVASC PO SCH (09:14)
[2018-10-19] MEDS: MORPHINE IV PRN ×4 (09:14→21:36)
--- NOTE | 2018-10-19 15:16 | NEPHROLOGY PROGRESS NOTE ---
DATE: 10/19/2018 DATE AND TIME SEEN: 10/19/2018 at 0800. SUBJECTIVE: Mr. Lazo is currently resting quietly in bed. His is resting in the chair. Mr. Lazo is mostly nonverbal, though he is more awake and alert today. No complaints of discomfort. OBJECTIVE: His most recent vital signs: His last temperature 99.5, blood pressure 136/49, heart rate 71, respirations 16. He is on room air. Last recorded saturation 97%. He has had 240 In, 1800 Out to void. His most recent labs last drawn: Hemoglobin of 9.1. Previous potassium of 4.2. PHYSICAL EXAMINATION: General: This is a 68-year-old -Lux[place]bour[place] male who is resting quietly in bed. He appears chronically ill in no acute distress. His skin is warm and dry. HEENT: Normocephalic, atraumatic. Conjunctivae pale pink. He has ARMAND. Mucous membranes dry. Neck is supple. Trachea midline. No JVD. Cardiovascular: Regular rate and rhythm. He has a systolic murmur. Lungs are clear to auscultation bilaterally. Equal excursion. He is on room air. Abdomen soft, nontender, positive bowel sounds. Genitourinary: Not inspected. Minimal void with dialysis assist. Extremities have dryness with scarring noted to the left calf, lower extremity area. Wound remains intact with drainage and dressing not inspected to the left foot. He has a right AKA. No edema. Neurological: He is alert to person and to place though mostly nonverbal and lethargic. ASSESSMENT AND PLAN: 1. Chronic kidney disease, stage 5D. Patient tolerated his dialysis treatment yesterday. We will plan for dialysis in the a.m. 2. Electrolytes, acid-base balance, and anemia. We will continue to monitor. 3. Nonhealing diabetic wound to the left foot. Note on the chart per Dr. Jeronimo. Last note indicated considering a left BKA amputation. states that she and he are both aware. I would like to thank you for allowing us to follow with this patient. Dictated by ALBERT Miranda for Sukhjinder Abbott MD Face to face encounter, data reviewed, discussed with Dmitry Ag on . I agree with the above assessment and plan of care. cc: ALBERT Miranda MD Jason R. Seale, MD MTDD
[2018-10-19] MEDS: LOVENOX SUBQ SCH (21:30)
[2018-10-19] MEDS: FLOMAX PO SCH (21:30)
--- NOTE | 2018-10-20 04:28 | GENERAL SURGERY PROGRESS NOTE ---
DATE: 10/19/2018 SUBJECTIVE: The patient complains of left foot pain. Otherwise, no new complaints. OBJECTIVE: Vital Signs: He is afebrile. Vital signs are stable. General: He is awake, alert, in no acute distress. Extremities: The left foot wound is dressed. There is chronic ischemia of the lower extremity on the left. LABORATORY: None today. ASSESSMENT AND PLAN: A 68-year-old male with severe peripheral arterial disease and nonhealing great toe ulcer, with osteomyelitis in the great toe. According to his CT angiogram and Dr. Jeronimo's evaluation, the foot is not salvageable. Therefore, I have recommended to him above knee amputation. We discussed the risks, benefits, and alternatives, including bleeding, infection, wound dehiscence, chronic phantom pain, and other imponderables. He understands and agrees to proceed. cc: Jaskaran Wright MD
[2018-10-20] MEDS: LOPRESSOR PO SCH ×3 (06:45→17:30)
[2018-10-20] MEDS: HUMULIN R SUBQ SCH ×3 (07:08→16:00)
[2018-10-20] MEDS ORDERED: NS 2,000 ML MISC PRN (07:10)
[2018-10-20 07:32] LABS: ALBUMIN 3.1 g/dL (3.5-5.0); CALCIUM 8.5 mg/dL (8.8-10.2); PHOSPHORUS 4.2 mg/dL (2.7-4.5); POTASSIUM 4.1 mmol/L (3.5-5.1)
[2018-10-20 07:33] LABS: CREATININE 8.2 mg/dL (0.7-1.2)
[2018-10-20] MEDS: COREG PO SCH ×2 (10:00→23:50)
[2018-10-20] MEDS: NORVASC PO SCH (10:00)
[2018-10-20] MEDS: ASPIRIN PO SCH (10:00)
[2018-10-20] MEDS ORDERED: MORPHINE ONE ×3 (16:03→16:17)
[2018-10-20] MEDS ORDERED: DILAUDID IV PRN (16:13)
[2018-10-20] MEDS ORDERED: VANCOMYCIN 1 GM/NS 1 GM/250 ML IVPB IV ONE (17:00)
[2018-10-20] MEDS ORDERED: NS 500 ML ONE ×2 (17:31→20:09)
--- NOTE | 2018-10-20 17:59 | NEPHROLOGY PROGRESS NOTE ---
DATE: 10/20/2018 SUBJECTIVE: He is anticipating below-knee amputation today at 2 p.m. He has no new complaints. Minimal pain. No shortness of breath, nausea, vomiting, etc. OBJECTIVE: Vital Signs: Blood pressure 133/51, heart rate 69, respirations 16, afebrile. General: No acute distress. Skin: Warm and dry. HEENT: Conjunctivae are pink and moist. Oropharynx is dry. Neck: Supple. Neck veins are not visible. Heart: Regular with systolic murmur present. Lungs: Have equal breath sounds. No crackles or wheezes. Abdomen: Soft, nontender. Bowel sounds present. Extremities: Trace edema. No clubbing or cyanosis. IMPRESSION: Chronic kidney disease 5D. He will have his routine dialysis this morning and surgery this afternoon. We will use his outpatient dry weight and 2 K bath. No heparin. His hemoglobin was moderately low at 9.1 on yesterday. I will remeasure his hemoglobin tomorrow as he may require transfusion. cc: MD Jaskaran Santana MD
--- NOTE | 2018-10-20 19:52 | OPERATIVE NOTE ---
PROCEDURE DATE: 10/20/2018 PREOPERATIVE DIAGNOSES: 1. Peripheral arterial disease. 2. End-stage renal disease. 3. Osteomyelitis of left great toe. POSTOPERATIVE DIAGNOSES: 1. Peripheral arterial disease. 2. End-stage renal disease. 3. Osteomyelitis of left great toe. PROCEDURE: Left above-knee amputation. SURGEONS: Jaskaran Wrihgt MD. RADIO PERSONALITY: Cam. ANESTHESIA: General. ESTIMATED BLOOD LOSS: 500 mL. COMPLICATIONS: None apparent. SPECIMENS: Left leg. FINDINGS: The skin and muscles of the thigh were viable with good blood flow. TECHNIQUE: He was brought to the operating room and placed supine on the table. General anesthesia was induced. He was prepped and draped in sterile fashion. A fishmouth incision was made one hands breadth above the left knee with a knife and carried down into the subcutaneous fat sharply. Cautery was used for hemostasis along the skin edges and then the subcutaneous fat and anterior muscle compartments were divided with cautery down to the femur. I then divided the anteromedial muscles with cautery, ligating vessels proximally and distally as we came upon them with 2-0 and 3-0 silk. I then divided the anterior lateral muscle in the same fashion. I then isolated the superficial femoral artery and vein, and suture ligated them with 2-0 silk stick tie proximally and free ties distally. I then used a periosteal elevator to elevate the muscle and periosteum off of the femur proximally. A Gigli saw was passed around the femur and the bone was divided with a Gigli saw at least a couple of centimeters above the line of the skin. I divided the posterior muscle and fascial compartments with the amputation knife. The leg was passed off the field. Several bleeders were controlled with 3-0 silk, [id number] stick ties or cautery. The femoral nerve bundle was suture ligated with 2-0 silk proximally. The distal portion was divided with the knife and removed. The proximal portion was tucked back up under the bone several centimeters away from the wound. I brought the wound edges together. There was felt to be some tension so I decided to shorten the femur several cm. This was done with a power saw. We then washed out the wound with warm saline. When I was satisfied with hemostasis, I reapproximated the anterior and posterior fascia with interrupted 0 Vicryl. The skin was closed with skin clips. A sterile dressing was applied. There were no apparent complications. cc: Jaskaran Wright MD
[2018-10-20] MEDS ORDERED: NS 1,000 ML IV ONE ×2 (20:04→20:07)
[2018-10-20] MEDS ORDERED: LEVOPHED 8 MG in D5 1/2 NS 250 ML IV SCH ×4 (20:15)
[2018-10-20 20:21] LABS: BASO# 0.04 X1000 (0.0-0.2); BASO% 0.4 % (0.0-0.8); EOS# 0.01 X1000 (0.0-0.7); EOS% 0.1 % (0.0-10.0); HEMATOCRIT 28.5 % (42.0-52.0); HEMOGLOBIN 8.7 g/dL (14.0-18.0); IMM GRAN# 0.02 X1000 (0.0-0.04); IMM GRAN% 0.2 % (0.0-0.5); LYMPH# 2.05 X1000 (1.2-3.4); LYMPH% 18.2 % (20.5-51.1); MCH 28.8 PG (27-31); MCHC 30.5 g/dL (33-37); MCV 94.4 FL (81-99); MONO# 1.05 X1000 (0.11-0.59); MONO% 9.3 % (1.7-9.3); MPV 9.2 FL (7.4-10.4); NEUT# 8.07 X1000 (1.4-6.5); NEUT% 71.8 % (42.2-75.2); PLT 370 X1000 (130-400); RBC 3.02 XMIL (4.7-6.1); WBC 11.24 X1000 (4.8-10.8)
[2018-10-20] MEDS ORDERED: NARCAN IV ONE (20:25)
[2018-10-20] MEDS ORDERED: ZOFRAN IV PRN (20:42)
[2018-10-20 20:44] LABS: ALB/GLOB RATIO 0.6; ALBUMIN 3.4 g/dL (3.5-5.0); CALCIUM 8.3 mg/dL (8.8-10.2); CREATININE 5.4 mg/dL (0.7-1.2); MAGNESIUM 2.5 mg/dL (1.5-2.7); POTASSIUM 4.9 mmol/L (3.5-5.1); TOTAL BILIRUBIN 0.4 mg/dL (0.20-1.00); TOTAL PROTEIN 9.5 g/dL (6.3-8.3)
--- NOTE | 2018-10-20 20:53 | Diag Imaging Result Doc PS360 ---
EXAM: CHEST-PORTABLE HISTORY: post op, hypotension TECHNIQUE: Supine chest COMPARISON: 09/27/2018 FINDINGS: The lungs are well expanded except for left basilar atelectasis. The heart is not enlarged. Sternal wires are present. The vessels are not distended. There are no infiltrates. No effusion identified. IMPRESSION: Left basilar atelectasis. Electronically signed by Elliott Coto 10/20/2018 8:51 PM
--- NOTE | 2018-10-20 21:21 | PROGRESS NOTE ---
DATE: 10/20/2018 Mr. Jerry Lazo had to be transferred from the floor to the ICU on the night of surgery from a left [id number] amputation per Dr. Wright. He was hypotensive and cold and clammy. The hospitalist has seen the patient on my arrival and given him some Narcan and he mentally woke up and his vital signs improved. He was also given a bolus and some labs were ordered per Dr. Wright. Now he awakens in our ICU. His heart rate is 86. His blood pressure is 150/80. His O2 saturation is 100% on nasal cannula O2. He has no work of breathing. His left [id number] amputation stump has no evidence of bleeding. It is intact and looks good. His abdomen soft without any tenderness. LABS: His hematocrit is 28%, his white blood cell count 11.2. His BUN and creatinine are 21 and 5.4. It must be noted that he was dialyzed today and he also lost about 500 mL of blood during the procedure per Dr. Wright's dictation. PLAN: We will continue some IV fluids and monitor him in the ICU. He may require another dose of Narcan to reverse his sedation. His chest x-ray was clear. cc: MD Jaskaran Lofton MD
[2018-10-20 21:23] LABS: CK INDEX 0.2 (0.0-2.5); CK-MB 1.58 ng/mL (0.0-5.0)
[2018-10-20] MEDS: FLOMAX PO SCH (23:51)
[2018-10-21] MEDS: NEURONTIN PO SCH ×3 (00:09→21:01)
[2018-10-21] MEDS: LOPRESSOR PO SCH ×4 (00:09→16:41)
[2018-10-21] MEDS: HUMULIN R SUBQ SCH ×5 (00:22→21:01)
[2018-10-21] MEDS ORDERED: NARCAN IV PRN (00:31)
[2018-10-21 05:19] LABS: MCH 28.8 PG (27-31); MCV 92.7 FL (81-99); MPV 9.4 FL (7.4-10.4); RBC 3.13 XMIL (4.7-6.1); WBC 13.18 X1000 (4.8-10.8)
[2018-10-21 05:55] LABS: ALBUMIN 3.4 g/dL (3.5-5.0); CALCIUM 7.7 mg/dL (8.8-10.2); PHOSPHORUS 6.4 mg/dL (2.7-4.5); POTASSIUM 4.7 mmol/L (3.5-5.1)
[2018-10-21 05:58] LABS: CREATININE 5.8 mg/dL (0.7-1.2)
[2018-10-21] MEDS ORDERED: LOVENOX SUBQ SCH (06:00)
[2018-10-21 06:20] LABS: CK INDEX 0.7 (0.0-2.5); CK-MB 8.44 ng/mL (0.0-5.0)
[2018-10-21] MEDS: COREG PO SCH ×2 (08:57→21:01)
[2018-10-21] MEDS: NORVASC PO SCH (08:58)
[2018-10-21] MEDS: ASPIRIN PO SCH (09:02)
[2018-10-21] MEDS: LOVENOX SUBQ SCH (09:02)
--- NOTE | 2018-10-21 09:26 | CONSULTATION ---
DATE OF CONSULTATION: 10/20/2018 PRIMARY CARE PROVIDER: ALBERT Lockett. REASON FOR CONSULTATION: Hypotension. HISTORY OF PRESENT ILLNESS: Mr. Lazo is a 68-year-old -Swazi male who did undergo a left above the knee amputation with Dr. Wright. It was initially reported that the patient did receive dialysis prior to his surgery. According to dialysis notes, he did have 2700 mL of fluid pulled off dialysis and then also did have 500 mL of blood loss during surgery. It was noted that when the patient returned back from surgery, he was borderline hypotensive with blood pressure systolically in the 90s though it was noted that the patient was confused and somewhat lethargic. He did receive during this time, around 5 p.m. a dose of 1 mg of Dilaudid as well. Though at approximately 8 p.m., I did receive a call that we had been consulted and the patient was found to be extremely hypotensive on the floor with a blood pressure of 43 systolically. They reported that he was diaphoretic, cold and clammy. Upon arrival to ICU, the patient was lethargic, cold and clammy to the touch. Blood pressure was systolically in the 50s. We did order a stat 1 L of normal saline bolus though unfortunately this was not improving the patient's blood pressure quickly enough. We did go ahead and add on a small dose of Narcan as well as some Levophed. The patient did have a pretty rapid improvement in his status. Blood pressure did improve. We were able to turn off the Levophed only after him receiving this for a very short period of time. Approximately 30 minutes after the patient received Narcan, he was awake enough to tell us his name, date of and that he was in the ICU. We did order for the patient to receive stat laboratory results of a CBC, CMP, troponin, CK as well as a chest x-ray and an EKG. During my examination, the patient did have one episode of vomiting. This was a small amount of clear colored emesis although I feel this is likely secondary to the administration of Narcan. The patient was sitting up straight in the bed and did have suction at bedside that was readily available during his vomiting episode. After this, he was in no respiratory distress and had no coughing noted. The patient will remain in ICU. We will continue to monitor him closely and we are awaiting results of stat diagnostic studies. REVIEW OF SYSTEMS: A complete review of systems was unable to be performed at this time due to the patient's current mentation and condition. PAST MEDICAL HISTORY: 1. End-stage renal disease on hemodialysis. 2. Diabetes mellitus. 3. Hypertension. 4. Congestive heart failure. 5. History of coronary artery disease status post coronary artery bypass graft. 6. Paroxysmal atrial fibrillation. 7. Peripheral artery disease. 8. BPH. 9. Osteoarthritis. PAST SURGICAL HISTORY: 1. Right above knee amputation. 2. Coronary artery bypass graft. 3. Low back surgery. 4. Thyroidectomy. 5. Left cataract surgery. 6. Left upper arm AV fistula. SOCIAL HISTORY: The patient no new history of tobacco, alcohol or illicit drug use. He does live with his spouse. FAMILY HISTORY: Positive for diabetes. ALLERGIES: The patient has no known allergies. HOME MEDICATIONS: 1. Norvasc 5 mg p.o. daily. 2. Aspirin 81 mg daily. 3. Phos-Lo 667 mg t.i.d. 4. Coreg 3.125 mg p.o. b.i.d. 5. Neurontin 300 mg p.o. b.i.d. 6. BiDil 1 tablet p.o. t.i.d. 7. Metolazone 5 mg p.o. daily. 8. Bactrim DS one tablet p.o. b.i.d. 9. Flomax 0.4 mg p.o. at bedtime. DIAGNOSTIC DATA: White blood cell count is 11,240, hemoglobin 8.7, hematocrit 28.5, platelet count is 370,000. Sodium 136, potassium 4.9, chloride 90. Serum bicarb is 20. BUN 21. Creatinine 5.4 with a GFR of 13. Glucose 179. Calcium 8.3. CK is 784. CK index is 0.2. CKMB is 1.5 with troponin of 0.091. Stat EKG performed at the bedside initially did show a sinus tachycardia with a first degree AV block. The first degree AV block is not a new onset. It was present in previous EKGs though the patient did appear to have some slight ST depression in anterolateral leads. Chest x-ray showed a left basilar atelectasis. No other acute abnormalities were noted. PHYSICAL EXAMINATION: VITAL SIGNS: Heart rate 84, respirations 14, blood pressure 87/45 with a MAP of 67. The patient's blood pressure was initially in the 50s systolically upon my arrival. This is much improved. Oxygen saturation is 100% on nasal cannula at 2 L. GENERAL: Mr. Lazo is a 68-year-old -Swazi male who upon my initial assessment, the patient was lethargic and only responsive to pain with moaning and groaning although after his blood pressure improved and Narcan had been given, the patient did later on become much more responsive and actually was able to tell us his name and date of . HEENT: Head is atraumatic, normocephalic. Pupils are 2 mm, equal, round and reactive. They were sluggish. Oral mucosa is slightly dry. NECK: Supple. Trachea midline. CARDIOVASCULAR: The patient has an S1, S2. No gallops, murmurs or rubs appreciated with tachycardic rate that is regular. PULMONARY: The patient has symmetrical chest expansion bilaterally. Lung sounds are clear to auscultation in bilateral full ruiz. ABDOMEN: Soft, nondistended. Patient showed no facial grimacing or guarding upon palpation. Bowel sounds were present in all 4 quadrants, were normoactive. EXTREMITIES: The patient has had a previous left above the knee amputation. The patient's surgical site has been dressed with a compressive dressing at this time. We slightly unwrapped this. There did not appear to be any saturation of the wound at this time. Radial pulses were 2+ bilaterally. INTEGUMENTARY: The patient's skin is slightly pale. It is diaphoretic and intact except for his previously mentioned surgical wound. NEUROLOGICAL: The patient was initially lethargic upon my assessment with his only response to painful stimuli though after being given Narcan, his mentation has improved. He is more alert and was able to answer his name, date of and tell us that he was in the ICU. ASSESSMENT AND PLAN: 1. Hypotension. This is likely multifactorial though the patient did have dialysis prior to surgery. Did have 2700 mL of fluid pulled off as well as did have a reported 500 mL blood loss during surgery and then did receive Dilaudid postoperatively. Since receiving 1 L normal saline bolus and briefly being placed on Levophed and receiving Narcan, the patient' s blood pressure has improved at this time. He is maintaining MAPs above 60. He does have regularly prescribed medications of Coreg and metoprolol that are scheduled though we will hold these at this time. We will continue to closely monitor his blood pressure. 2. Status post left above knee amputation. The patient does not appear to have any acute postoperative bleeding. Dr. Wright did perform his surgery though Dr. Locke was environmental protection economist tonight. He has assessed the patient as well. We will defer further management of this to their surgical team. 3. Encephalopathy. The patient does have some baseline confusion. His son, Tucker, who I spoke with reported that over the past 2-3 days, he has been confused though as previously mentioned, after the patient's blood pressure did improve and he was given Narcan, he was alert and oriented to person and place. We will continue to follow. 4. History of coronary artery disease, status post coronary artery bypass graft. After his hypotensive episode, initial EKG did show ST depression in anterolateral leads. We did do cardiac enzymes as well. The patient did have elevated troponin. Repeat later on this morning did show an increase in his troponin from 0.091 to 0.496. Though his repeat EKG, the ST depression that was seen in the anterolateral leads looks as though it has improved. We did go ahead and place a consult with Cardiology given the patient's history , symptoms, cardiac enzymes and EKG changes though this may be secondary to increased demand from his hypotension. We will await Cardiology's evaluation and further recommendations for management. 5. End-stage renal disease on hemodialysis. Dr. Abbott has previously been consulted. We will defer management of this to Nephrology. 6. Diabetes mellitus. We will continue the patient on an insulin sliding scale per protocol. 7. Paroxysmal atrial fibrillation. The patient is in sinus rhythm at this time with a first degree AV block. His rate is controlled in the 80s. It looks as though he normally does take possibly metoprolol for this though given his hypotension, we are holding this at this time. We will continue to follow. We will await Cardiology's evaluation and further recommendations. 8. DVT prophylaxis. The patient is status post a left above knee amputation. We will defer this to the surgical team. Critical care time with this patient was approximately 70 minutes. Dictated by ALBERT Bocanegra for Dane Sunshine MD cc: Pravin Russ MD Agree with assessment and plan as documented above. The following is my own face to face evaluation and physical. Patient with marked hypotension and encephalopathy post-op. Likely a combination of factors including 2.7L removed with dialysis earlier in the day, major operation(AKA) with some blood loss and pain control medications post-op. on bedside evaluation patient was diaphoretic, responsive only to noxious stimuli and hypotensive. He responded poorly to initial fluid bolus so levophed was started but this was able to be weaned rapidly after narcan was administered. After narcan, BP improved, patient became more alert(although he remained confused), and was no longer diaphoretic. Patient did have some slight ST depression on inferolateral leads but theses appeared to resolved with improvement in his blood pressure. troponins were obtained which did trend up somewhat so cardiology was asked to evaluate the patient. recommend close monitoring and minimizing of sedating medications. MTDD
--- NOTE | 2018-10-21 10:39 | CARDIOLOGY CONSULTATION ---
DATE: 10/21/2018 REQUESTING PHYSICIAN: Hospitalist Service REASON FOR CONSULTATION: The patient may have suffered a myocardial infarction. HISTORY OF PRESENT ILLNESS: Mr. Lazo is an unfortunate 68-year-old black gentleman who presented to the hospital with a nonhealing left lower extremity ulcer complicated with osteomyelitis. They did a CT angiogram of the aorta on 10/17/2018 that shows severe atheromatous changes including left renal artery and superior mesenteric artery, very poor runoff beyond the distal superficial femoral artery on the left. Decision was made to proceed with amputation, and that was done on 10/20/2018, a left above-knee amputation carried out. The patient, following the surgery, was found clammy, cold and very uncomfortable. A chest x-ray was done at that time that showed left basilar atelectasis. They did an EKG at about 7:54 p.m. that shows sinus tachycardia with diffuse ST abnormality. The patient was given Narcan postop. They checked CPKs and troponins. His CPK was 784 initially at 8:10 p.m. and then at 4:30 this morning was 1147. His CKMB fraction went from 1.58 initially to 8.44 at 4:00 a.m. today. Troponin levels have changed from 0.091 to 0.496. His EKG at 3:13 a.m. today showed sinus rhythm, rate 79 beats per minute, with a diffuse repolarization abnormality. Repeated at 7:51 this morning shows the same. The patient is not having any chest pain at this time. He is actually eating breakfast. The patient required close observation in the ICU following the surgery. His is at the bedside feeding him, and she says that he is definitely looking much better than last night. The patient has pain in the left leg where the operation took place. His EKG when compared to EKG from 09/27/2018, there has been really no significant change. PAST MEDICAL HISTORY: Significant for severe coronary heart disease. He has had paroxysmal atrial fibrillation, hyperlipidemia, hypertension, diabetes mellitus type 2, and he has had progressive chronic kidney disease. The patient initiated hemodialysis about 6 months ago. In 03/2018, they did a nuclear stress test that showed reversible defect in the inferior wall suggesting inducible ischemia. This involved a small area of infarction, and the ejection fraction at that time was 54%. PAST SURGICAL HISTORY: Positive for right above-knee amputation. Yesterday he had left above- knee amputation. He has had dialysis access created. He has had coronary bypass surgery in 2016. At that time, Dr. Sherwin Clemens, on 03/30/2016, performed a triple bypass including mammary artery graft to LAD and vein graft to first marginal branch of the circumflex and vein graft to the posterior descending branch of right coronary artery. I have personally reviewed his angiograms, and his right coronary artery after the bifurcation was a very diffusely diseased vessel and is certainly not amenable to any percutaneous intervention. HOME MEDICATIONS: At the time of this admission included amlodipine 5 mg daily , aspirin 81 daily, calcium acetate 667 three times a day, carvedilol 3.125 twice a day, Neurontin 300 twice a day, isosorbide dinitrate with hydralazine 1 tablet 3 times a day, metolazone 5 mg daily, sulfamethoxazole (Bactrim) 1 tablet twice a day, and Flomax 0.4 mg at bedtime. REVIEW OF SYSTEMS: His functional capacity is markedly impaired. He has been dealing with infected left foot for a long time requiring several debridements. He is amputated, and he really does not do any physical effort or strenuous activity. He is mostly wheelchair bound or bed bound. No significant positives. PHYSICAL EXAMINATION: Right now, blood pressure is 99/48, temperature 96.8, pulse 80, respirations 12 per minute. He is awake, debilitated, frail looking. HEENT: No significant abnormalities. Chest: Diminished breath sounds at the bases. Heart sounds are regular and rhythmic. I do not hear a gallop or murmur. His abdomen is soft. Extremities show evidence of bilateral above-knee amputation. Neurologic: He follows simple commands. DIAGNOSTIC DATA: Blood work shows sodium 137, potassium 4.7, BUN is 27, creatinine 5.8. Hemoglobin is 9.0, hematocrit 29%, white cell count 13,180. IMPRESSION: 1. The patient presented with some hemodynamic instability following left above- knee amputation. It is possible that he may have developed perioperative ischemia. His EKG shows some changes. His troponins are rising. His EKG is abnormal. Historically, we know that he has had a triple bypass in 03/2016, and his right coronary artery territory was ischemic in on a stress test, and the vessel is really a very poor vessel for any kind of repeat intervention. Likely case of Acute Non ST NV in patient with severe 3 Vessel coronary artery disease. 2. End stage renal disease on dialysis. 3. First day postop following left above-knee amputation. 4. Severe peripheral vascular disease. 5. Diabetes mellitus type 2. RECOMMENDATIONS: At this time, I would suggest to pursue conservative management. We should probably put him on some enoxaparin for management of this ischemic event. We will follow him closely. We will probably put him on a regimen of enoxaparin 1 mg/kg per day or use a weight based heparin protocol with close monitoring of the PTT. The only issue is that may increase his risk for bleeding. We will follow him. We will order followup EKGs. Echocardiogram has already been requested. We will be following him. cc: MD Pravin Hui MD MTDD
[2018-10-21 13:07] LABS: CK INDEX 0.6 (0.0-2.5); CK-MB 6.94 ng/mL (0.0-5.0)
--- NOTE | 2018-10-21 13:15 | PROGRESS NOTE ---
DATE: 10/21/2018 SUBJECTIVE: Mr. Jerry Lazo is status post left [id number] amputation. The wound is dressed and appears to be dry. Last night, he had to be brought from the floor to the ICU urgently because he was cold and clammy and had a decreased blood pressure. He was given Narcan and seemed to improve. He was also given a bolus. This morning, he awakens. He is having some pain involving the left upper extremity. His vital signs are much improved. OBJECTIVE: His heart rate is 87, blood pressure 113/57 O2 saturation 100%. He has no work of breathing. His hematocrit is 29%. White blood cell count is 13. ASSESSMENT AND PLAN: He has end-stage renal disease, on chronic hemodialysis. He has a left arm AV fistula. He is hemodynamically stable with a stable hematocrit. He is on a diabetic diet and we are encouraging him to eat. I asked the hospitalist to see him yesterday when he was brought down to the ICU and appreciated their help. The hospitalist has consulted Cardiology. cc: MD Pravin Lofton MD
[2018-10-21 20:28] LABS: CK INDEX 0.4 (0.0-2.5); CK-MB 4.52 ng/mL (0.0-5.0)
[2018-10-21] MEDS: FLOMAX PO SCH (21:01)
[2018-10-22] MEDS: LOPRESSOR PO SCH ×4 (00:16→16:38)
[2018-10-22 05:18] LABS: ALBUMIN 2.9 g/dL (3.5-5.0); CALCIUM 7.5 mg/dL (8.8-10.2); PHOSPHORUS 5.9 mg/dL (2.7-4.5); POTASSIUM 4.6 mmol/L (3.5-5.1)
[2018-10-22 05:23] LABS: CREATININE 7.9 mg/dL (0.7-1.2)
[2018-10-22 05:40] LABS: CK INDEX 0.3 (0.0-2.5); CK-MB 2.87 ng/mL (0.0-5.0)
[2018-10-22 05:50] LABS: BASO# 0.01 X1000 (0.0-0.2); BASO% 0.1 % (0.0-0.8); EOS# 0.08 X1000 (0.0-0.7); EOS% 1.2 % (0.0-10.0); HEMATOCRIT 48.6 % (42.0-52.0); LYMPH# 2.69 X1000 (1.2-3.4); MCH 29.9 PG (27-31); MCHC 34.2 g/dL (33-37); MCV 87.4 FL (81-99); MONO# 0.77 X1000 (0.11-0.59); MONO% 11.5 % (1.7-9.3); MPV 9.6 FL (7.4-10.4); NEUT# 3.17 X1000 (1.4-6.5); NEUT% 47.2 % (42.2-75.2); PLT 173 X1000 (130-400); RBC 5.56 XMIL (4.7-6.1); RDW 16.7 % (11.5-14.5); WBC 6.72 X1000 (4.8-10.8)
[2018-10-22] MEDS: HUMULIN R SUBQ SCH ×4 (05:59→20:51)
--- NOTE | 2018-10-22 08:38 | PROGRESS NOTE ---
DATE: 10/22/2018 SUBJECTIVE: This patient looks much better today. He is alert. He is oriented x2. He is not oriented to time but he is following commands and answering all my questions. OBJECTIVE: Vital Signs: Temperature 98.4 degrees, pulse 79, respiratory rate 10, blood pressure 125/58, oxygen saturation 97% on 2 L of nasal cannula. HEENT: Head normocephalic. No trauma. PERRLA. Neck: Supple. No JVD. No masses. Central trachea. Chest: Decreased breath sounds at the bases. Cardiovascular: RRR. No murmurs. No gallops. Abdomen: Soft, nontender, nondistended. No hepatosplenomegaly. Extremities: Bilateral AKA. The left lower extremity is covered with a dressing. No signs of bleeding. Neurological Examination: This patient is alert. He is oriented x2. He is following commands. Laboratory: Sodium 134, potassium 4.6, chloride 92, bicarbonate 24, BUN 40, creatinine 7.9, glucose 128, calcium 7.5, phosphorus 5.9. ASSESSMENT AND PLAN: 1. Status post left above the knee amputation. No signs of bleeding at this moment. The wound is covered. Surgery department is following this patient. 2. Myocardial infarction, likely non-ST elevation myocardial infarction. Continue with anticoagulation. Cardiology department on board. At this moment, he is not complaining of chest pain or shortness of breath. 3. Hypotension, resolved after getting fluids. 4. Encephalopathy. This is getting better. I do believe he has some baseline confusion. Probably, he has dementia but we will monitor. 5. End-stage renal disease, on hemodialysis. Continue with nephrology department recommendations. 6. Type 2 diabetes. Continue pattern of blood sugar and sliding scale insulin per protocol. 7. Paroxysmal atrial fibrillation. At this moment, this patient is in sinus rhythm, controlled. 8. Deep vein thrombosis prophylaxis. Now he is getting Lovenox twice a day. We will continue with the same treatment. CRITICAL CARE TIME: 40 minutes. cc: Pravin Russ MD
[2018-10-22] MEDS: NORVASC PO SCH (09:01)
[2018-10-22] MEDS: LOVENOX SUBQ SCH (09:01)
[2018-10-22] MEDS: NEURONTIN PO SCH ×2 (09:01→20:51)
[2018-10-22] MEDS: ASPIRIN PO SCH (09:01)
[2018-10-22] MEDS: COREG PO SCH ×2 (09:02→20:51)
[2018-10-22 09:36] LABS: BASO# 0.02 X1000 (0.0-0.2); BASO% 0.2 % (0.0-0.8); EOS# 0.12 X1000 (0.0-0.7); EOS% 1.1 % (0.0-10.0); HEMATOCRIT 25.6 % (42.0-52.0); HEMOGLOBIN 8.1 g/dL (14.0-18.0); IMM GRAN# 0.02 X1000 (0.0-0.04); IMM GRAN% 0.2 % (0.0-0.5); LYMPH# 1.85 X1000 (1.2-3.4); LYMPH% 16.7 % (20.5-51.1); MCH 28.6 PG (27-31); MCHC 31.6 g/dL (33-37); MCV 90.5 FL (81-99); MONO# 1.96 X1000 (0.11-0.59); MONO% 17.7 % (1.7-9.3); MPV 8.8 FL (7.4-10.4); NEUT# 7.08 X1000 (1.4-6.5); NEUT% 64.1 % (42.2-75.2); PLT 326 X1000 (130-400); RBC 2.83 XMIL (4.7-6.1); RDW 15.8 % (11.5-14.5); WBC 11.05 X1000 (4.8-10.8)
[2018-10-22 10:03] LABS: HEMOGLOBIN 16.6 g/dL (14.0-18.0)
--- NOTE | 2018-10-22 10:44 | PROGRESS NOTE ---
DATE: 10/22/2018 Mr. Jerry Lazo remains in the unit but he is awake. He seems to be eating better. His left [id number] amputation site is dressed. His hematocrit is 26%, white blood cell count 11. His BUN and creatinine are 40 and 7.9. He does have end-stage renal disease and a left arm AV graft. His heart rate is 75, blood pressure 101/59, O2 saturation 97%, his temperature is 99 degrees. PLAN: We will continue his stay in the ICU. Watch his hematocrit. Encourage p.o. intake. I guess he is scheduled for dialysis tomorrow. cc: MD Pravin Lofton MD
--- NOTE | 2018-10-22 12:48 | ECHO REPORT ---
ORDER DATE: 10/20/2018 INTERPRETING PHYSICIAN: Dr. Garcia REQUESTING PHYSICIAN: CLINICAL INDICATIONS: This is a 68-year-old male with hypotension, post bypass, acute myocardial infarction. M-MODE MEASUREMENTS: Right ventricle: cm. Left ventricle end diastole: 4.2 cm. Left ventricle end systole: 2.7 cm. Posterior wall: 1.3 cm. Interventricular septum: 1.3 cm. Left atrium: 4.6 cm. Aortic root: 2.1 cm. SUMMARY OF 2-DIMENSIONAL IMAGIN. The study was difficult. Definity was added to optimize visualization of the endocardium. The left ventricular systolic function appears to be grossly normal. The ejection fraction is estimated at 60% to 65%. I do not see definite wall motion abnormality. 2. The right ventricle appears to be mildly enlarged. 3. The atria also appear to be mildly enlarged. 4. The inferior vena cava is not dilated. 5. Tricuspid valve shows trace regurgitation. 6. Pulmonary pressure is normal, less than 30 mmHg. 7. Pulmonic valve appears to be grossly normal. 8. Aortic valve shows sclerosis of the cusps with mild degree of regurgitation. 9. The mitral valve shows mild calcification of the annulus. Color flow mapping indicates trace regurgitation. 10.Pulse wave Doppler of mitral inflow shows mild reversal of the E and the A ratio. 11.Tissue Doppler of septal and lateral mitral annulus averages 12 cm. 12.There is no diastolic dysfunction. 13.The pulmonic valve looks grossly normal. Color flow mapping is unremarkable. CONCLUSIONS: In summary, this study shows: 1. Normal left ventricular systolic function. Definity was added to optimize visualization of endocardium. Ejection fraction estimated in the range of 60% to 65%. 2. Preserved diastolic function. 3. Calcification of aortic valve with mild degree of aortic regurgitation. 4. Pulmonary pressure is normal. 5. No pericardial effusion, mass or thrombus. Clinical correlation is recommended. cc: MD Pravin Hui MD
--- NOTE | 2018-10-22 13:44 | CARDIOLOGY PROGRESS NOTE ---
DATE: 10/22/2018 CHIEF COMPLAINT: Abnormal troponins, abnormal EKG, pain in the left leg. SUBJECTIVE: Mr. Lazo is feeling better today. He has been able to eat his breakfast. Still having pain in the left leg. Today is postoperative day number 2 following his amputation. OBJECTIVE: Blood pressure is 101/59, temperature is 99 degrees, pulse 75, respirations 13. He is in sinus rhythm. HEENT: Unremarkable. Chest: Clear to auscultation and percussion. Heart sounds regular and rhythmic. I do not hear gallop or murmur. Abdomen is nontender. Extremities showed bilateral above-knee amputation. The left thigh is covered with a dressing. Neurologic: Awake. Answers appropriately. Moves all 4 extremities. DIAGNOSTIC DATA: Blood work shows sodium 134, potassium 4.6, BUN is 40, creatinine 7.9. Troponins went up to 0.8 and then 0.846. CK is coming down. IMPRESSION: 1. The patient probably suffered a light non-ST myocardial infarction. 2. History of severe coronary heart disease. 3. Status post left above-knee amputation. 4. End stage renal disease on hemodialysis. 5. Peripheral arterial occlusive disease. 6. Diabetes mellitus type 2. RECOMMENDATIONS: The patient's echocardiogram indicates preserved ejection fraction. His ischemic event has not resulted in any major functional loss of his myocardium. At this time, we will continue present therapy as we are doing with aspirin, beta blockers, enoxaparin, and we will continue to monitor him. cc: MD Pravin Hui MD
[2018-10-22] MEDS: FLOMAX PO SCH (20:51)
[2018-10-23] MEDS: LOPRESSOR PO SCH ×5 (00:46→23:07)
[2018-10-23 06:16] LABS: ALB/GLOB RATIO 0.5; ALBUMIN 2.8 g/dL (3.5-5.0); CALCIUM 8.1 mg/dL (8.8-10.2); CREATININE 9.9 mg/dL (0.7-1.2); PHOSPHORUS 7.2 mg/dL (2.7-4.5); TOTAL BILIRUBIN 0.26 mg/dL (0.20-1.00); TOTAL PROTEIN 8.4 g/dL (6.3-8.3)
[2018-10-23 06:33] LABS: BASO# 0.03 X1000 (0.0-0.2); BASO% 0.3 % (0.0-0.8); EOS# 0.16 X1000 (0.0-0.7); EOS% 1.6 % (0.0-10.0); IMM GRAN# 0.02 X1000 (0.0-0.04); IMM GRAN% 0.2 % (0.0-0.5); LYMPH# 2.42 X1000 (1.2-3.4); LYMPH% 23.4 % (20.5-51.1); MCH 28.6 PG (27-31); MCHC 31.8 g/dL (33-37); MCV 89.8 FL (81-99); MONO# 1.66 X1000 (0.11-0.59); MONO% 16.1 % (1.7-9.3); MPV 9.6 FL (7.4-10.4); NEUT# 6.03 X1000 (1.4-6.5); NEUT% 58.4 % (42.2-75.2); PLT 336 X1000 (130-400); RBC 2.45 XMIL (4.7-6.1); RDW 15.8 % (11.5-14.5); WBC 10.32 X1000 (4.8-10.8)
--- NOTE | 2018-10-23 06:55 | EKG Report ---
Test Performed on : 10/22/2018 08:04:05 AM Test Reason : Myocardial infarction Blood Pressure : / mmHG Vent. Rate : 081 BPM Atrial Rate : 081 BPM P-R Int : 222 ms QRS Dur : 106 ms QT Int : 410 ms P-R-T Axes : 059 086 -86 degrees QTc Int : 476 ms Sinus rhythm. with 1st degree AV block. Possible Left atrial enlargement T wave abnormality, consider inferolateral ischemia Prolonged QT Abnormal ECG When compared with ECG of 21-OCT-2018 07:51, (Unconfirmed) No significant change was found Confirmed by Sean PATEL, Brando Price ([id number]) on 10/23/2018 4:51:00 PM
[2018-10-23 06:56] LABS: CK INDEX 0.2 (0.0-2.5); CK-MB 1.86 ng/mL (0.0-5.0)
--- NOTE | 2018-10-23 06:56 | EKG Report ---
Test Performed on : 10/21/2018 03:13:00 AM Test Reason : Hx of CAD, Hypotension Blood Pressure : / mmHG Vent. Rate : 079 BPM Atrial Rate : 079 BPM P-R Int : 220 ms QRS Dur : 106 ms QT Int : 414 ms P-R-T Axes : 051 087 -61 degrees QTc Int : 474 ms Sinus rhythm. with 1st degree AV block. Possible Left atrial enlargement Left ventricular hypertrophy with repolarization abnormality Abnormal ECG When compared with ECG of 20-OCT-2018 19:54, (Unconfirmed) Vent. rate has decreased BY [address] no longer depressed in Anterolateral leads Confirmed by Sean PATEL, Brando Price ([id number]) on 10/23/2018 4:49:45 PM
--- NOTE | 2018-10-23 07:39 | EKG Report ---
Test Performed on : 10/21/2018 07:51:46 AM Test Reason : ELEVATED TROPONIN Blood Pressure : / mmHG Vent. Rate : 080 BPM Atrial Rate : 080 BPM P-R Int : 216 ms QRS Dur : 106 ms QT Int : 410 ms P-R-T Axes : 054 087 -53 degrees QTc Int : 472 ms Sinus rhythm. with 1st degree AV block. Possible Left atrial enlargement T wave abnormality, consider inferolateral ischemia Prolonged QT Abnormal ECG When compared with ECG of 21-OCT-2018 03:13, (Unconfirmed) No significant change was found Confirmed by Sean PATEL, Brando Price ([id number]) on 10/23/2018 4:50:15 PM
[2018-10-23] MEDS: HUMULIN R SUBQ SCH ×4 (07:46→21:05)
--- NOTE | 2018-10-23 07:51 | PROGRESS NOTE ---
DATE: 10/23/2018 SUBJECTIVE: The patient seems to be stable. Hemoglobin dropped to 7, and I will ask for 1 unit of PRBC. Hopefully, we can transfuse this patient during dialysis. Probably, he will need more than 1 unit but for now we will go ahead and transfuse this patient with 1 unit during dialysis. No big changes compared with yesterday. We will continue with the same management. OBJECTIVE: Vital Signs: Temperature 98 degrees, pulse 69, respiratory rate 14, blood pressure 119/53, and oxygen saturation 96 on 2 L of nasal cannula. HEENT: Head normocephalic. No trauma. PERRLA. Neck: Supple. No JVD. No masses. Central trachea. Chest: Clear. Decreased breath sounds at the bases with some crepitus. Cardiovascular: RRR. No murmurs. Abdomen: Soft, nontender, and nondistended. No hepatosplenomegaly. Extremities: Bilateral AKA over the left lower extremity covered with a dressing. No signs of bleeding. Neurological: This patient is sleepy, but arousable. Oriented x2. He is following commands. LABORATORY: WBC 10.3, hemoglobin 7 hematocrit 22, and platelet 336,000. Sodium 133, potassium 5, chloride 90, bicarbonate 22, BUN 57, and creatinine 9.9. Glucose 130. Calcium 8.1. ASSESSMENT AND PLAN: 1. Status post left above the knee amputation on the left side. No signs of bleeding at this moment. The wound is covered. Surgery Department following this patient. 2. Myocardial infarction likely NSTEMI. Continue with the same management. Cardiology Department on board. Ejection fraction seems to be stable. No changes. 3. Anemia likely a combination of blood loss and chronic disease. He will get a unit of PRBC. 4. Encephalopathy. I think this is getting better. He has a baseline confusion. He has dementia, but we will monitor. 5. End-stage renal disease on hemodialysis. Hopefully, today he will receive 1 unit of PRBC during dialysis. 6. Type 2 diabetes. Continue with pattern of blood sugar and sliding scale insulin per protocol. 7. Paroxysmal atrial fibrillation. At this moment, this patient is in sinus rhythm. He is getting Lovenox twice a day as well. 8. Deep vein thrombosis prophylaxis. Continue with Lovenox. CRITICAL CARE TIME: 35 minutes. cc: Pravin Russ MD
--- NOTE | 2018-10-23 08:20 | CARDIOLOGY PROGRESS NOTE ---
DATE: 10/23/2018 CHIEF COMPLAINT: Abnormal troponin, possible myocardial infarction. SUBJECTIVE: Mr. Lazo has no new complaints today. He seems to be stable. He is a little lethargic, however, he arouses when his walks in the room and answers appropriately. OBJECTIVE: Vital Signs: His vital signs today are blood pressure 119/53, temperature 98 degrees, pulse 69, respirations 14. General: He is awake, alert and oriented in no distress. HEENT: Unremarkable. Chest: Diminished breath sounds diffusely. Heart: Heart sounds are regular and rhythmic. I do not hear any gallop or murmur. Abdomen: Nontender. Extremities: Show bilateral above knee amputations. LABORATORY DATA: White cell count 10,320, hemoglobin 7 grams. Sodium 133, potassium 5.0, BUN 57, creatinine 9.9. His CPKs have come down to 1030 from 1100. Troponin is pending this morning. EKG has not been done today. IMPRESSION: 1. A patient who suffered a non-ST myocardial infarction following left above knee amputation. 2. Severe coronary heart disease, previous coronary bypass surgery. 3. Peripheral obstructive arterial disease. 4. End-stage renal disease on hemodialysis. 5. Diabetes mellitus type 2. RECOMMENDATIONS: The patient will be treated conservatively at this time. He seems to be stable. He could probably be transferred to the medical floor after dialysis session today. Will arrange for followup EKG in the morning and troponin level this morning. cc: MD Pravin Hui MD
[2018-10-23] MEDS ORDERED: HEPARIN IV PRN (08:22)
[2018-10-23] MEDS ORDERED: NS 2,000 ML MISC PRN (08:22)
[2018-10-23] MEDS ORDERED: TIGHT: 0.2 ML/HR FOR DIALYSIS MISC PRN (08:22)
[2018-10-23] MEDS: NEURONTIN PO SCH ×2 (08:30→21:05)
[2018-10-23] MEDS: ASPIRIN PO SCH (08:30)
[2018-10-23] MEDS: COREG PO SCH ×2 (08:30→21:05)
[2018-10-23] MEDS: NORVASC PO SCH (08:30)
[2018-10-23] MEDS: LOVENOX SUBQ SCH (08:31)
--- NOTE | 2018-10-23 09:34 | NEPHROLOGY PROGRESS NOTE ---
DATE: 10/23/2018 SUBJECTIVE: Patient is sitting up in bed. He is awake and alert this morning. He is in no acute distress. OBJECTIVE: Vital Signs: Temperature 98 degrees, pulse 69, respiratory rate 14 , blood pressure 119/53. Intake 1.1 L. Output not measured. General: This is an elderly gentleman resting in bed. In no acute distress. HEENT: Normocephalic, atraumatic. ARMAND. Oral mucosa moist. Neck: Supple, without jugular venous distention. Cardiovascular: Regular rate and rhythm, without murmur. Pulmonary: Clear bilaterally. Abdomen: Soft, flat. Positive bowel sounds. Genitourinary: Not inspected. Extremities: Bilateral above the knee amputation. Left lower extremity with a new surgical dressing. No bleeding. Integumentary: Skin is warm and dry. LAB DATA: WBC of 10.3, hemoglobin 7. Sodium 133, potassium 5.0, CO2 22, creatinine 9.9. ASSESSMENT AND PLAN: 1. Chronic kidney disease 5D. Today is his routine dialysis day. We will dialyze him on a 2K bath/UF to dry weight 3.5 hour treatment. 2. Anemia, chronic disease and status post surgery. He will be transfused a unit of packed red blood cells today. 3. History of myocardial infarction, followed by Cardiology, being treated conservatively. DISPOSITION: He can be transferred to the floor after dialysis, at the discretion of the primary. Dictated by ALBERT Farr for Sukhjinder Abbott MD Face to face encounter, data reviewed, discussed with Sanna Leon on 10/23/18. I agree with the above assessment and plan of care. cc: MD Pravin Santana MD MTDD
--- NOTE | 2018-10-23 09:46 | GENERAL SURGERY PROGRESS NOTE ---
DATE: 10/23/2018 SUBJECTIVE: The patient denies chest pain, shortness of breath, nausea, vomiting, fevers or chills. He says his stump is a little sore. The events of the weekend were noted, namely hypotension after surgery with a change in cardiac enzymes and EKG likely indicating a non-ST- elevation UT. OBJECTIVE: Vital Signs: He is afebrile. His vital signs are stable. Blood pressure 119/53, pulse 69, and O2 saturation 96%. General: He is awake, alert, and oriented x4. No acute distress. Cardiovascular: Regular rate and rhythm. Respiratory: No work of breathing. Gastrointestinal: Soft, nontender. Extremities: The stump dressing is dry and intact without any signs of hematoma or active bleeding. His left upper arm fistula has a thrill. LABORATORY: White blood cell count 10, hemoglobin 7, hematocrit 22, platelet count 336,000. BUN 57, creatinine 9.9, potassium 5. CK 1030, CK-MB 1.8, troponin 0.6. ASSESSMENT AND PLAN: A 68-year-old male, postoperative day 3 from left above knee amputation with perioperative [id number]-[id number] myocardial infarction. From the cardiology standpoint, the enzymes are improving. He is asymptomatic. His vital signs are stable. He is on Lovenox for protection, and we will follow their recommendations for anticoagulation going forward. He may need 1 unit of blood with dialysis today. I am planning to transfer to the floor tomorrow if he is stable after dialysis. cc: MD Pravin Sung MD
--- NOTE | 2018-10-23 10:04 | EKG Report ---
Test Performed on : 10/20/2018 7:54:04 PM Test Reason : ICU. No order in [place] Blood Pressure : / mmHG Vent. Rate : 136 BPM Atrial Rate : 136 BPM P-R Int : 304 ms QRS Dur : 112 ms QT Int : 346 ms P-R-T Axes : 000 088 -77 degrees QTc Int : 520 ms Sinus tachycardia. with 1st degree AV block. , cannot completely rule out SVT Incomplete left bundle branch block Left ventricular hypertrophy with repolarization abnormality Abnormal ECG When compared with ECG of 28-SEP-2018 22:14, (Unconfirmed) Vent. rate has increased BY [address] now depressed in Inferior leads ST now depressed in Anterolateral leads T wave inversion now evident in Inferior leads T wave inversion now evident in Anterolateral leads Confirmed by Robert March MD ([id number]) on 10/23/2018 10:41:44 AM
[2018-10-23] MEDS: NORCO-10 PO PRN (10:44)
[2018-10-23] MEDS ORDERED: VANCOMYCIN 1 GM/NS 1 GM/250 ML IVPB IV SCH (17:00)
[2018-10-23] MEDS: FLOMAX PO SCH (21:05)
[2018-10-24] MEDS: HUMULIN R SUBQ SCH ×4 (04:40→20:26)
[2018-10-24] MEDS: LOPRESSOR PO SCH ×5 (05:20→21:14)
[2018-10-24 05:37] LABS: BASO# 0.02 X1000 (0.0-0.2); BASO% 0.2 % (0.0-0.8); EOS# 0.13 X1000 (0.0-0.7); EOS% 1.3 % (0.0-10.0); HEMATOCRIT 24.4 % (42.0-52.0); HEMOGLOBIN 7.9 g/dL (14.0-18.0); IMM GRAN# 0.03 X1000 (0.0-0.04); IMM GRAN% 0.3 % (0.0-0.5); LYMPH# 1.97 X1000 (1.2-3.4); LYMPH% 19.2 % (20.5-51.1); MCH 28.5 PG (27-31); MCHC 32.4 g/dL (33-37); MCV 88.1 FL (81-99); MONO# 1.72 X1000 (0.11-0.59); MONO% 16.7 % (1.7-9.3); MPV 9.6 FL (7.4-10.4); NEUT# 6.41 X1000 (1.4-6.5); NEUT% 62.3 % (42.2-75.2); PLT 307 X1000 (130-400); RBC 2.77 XMIL (4.7-6.1); RDW 15.7 % (11.5-14.5); WBC 10.28 X1000 (4.8-10.8)
[2018-10-24 06:04] LABS: ALBUMIN 2.7 g/dL (3.5-5.0); CREATININE 5.4 mg/dL (0.7-1.2); PHOSPHORUS 4.9 mg/dL (2.7-4.5); POTASSIUM 4.2 mmol/L (3.5-5.1)
[2018-10-24 06:05] LABS: BASO 2 % (0-1); EOS 4 % (1-10); LYMPHS 12 % (21-51); MONO 16 % (1-9); NRBC 9 % (0-0); SEGS 66 % (42-75)
[2018-10-24 06:06] LABS: HYPOCHROM 1+
--- NOTE | 2018-10-24 07:20 | EKG Report ---
Test Performed on : 10/24/2018 06:47:45 AM Test Reason : [place] Blood Pressure : / mmHG Vent. Rate : 074 BPM Atrial Rate : 074 BPM P-R Int : 244 ms QRS Dur : 108 ms QT Int : 414 ms P-R-T Axes : 056 087 -13 degrees QTc Int : 459 ms Sinus rhythm. with 1st degree AV block. Possible Left atrial enlargement Cannot rule out Anterior infarct , age undetermined T wave abnormality, consider inferior ischemia Abnormal ECG When compared with ECG of 22-OCT-2018 08:04, No significant change was found Confirmed by Sean PATEL, Brando Price ([id number]) on 10/24/2018 4:46:27 PM
--- NOTE | 2018-10-24 07:50 | CARDIOLOGY PROGRESS NOTE ---
DATE: 10/24/2018 CHIEF COMPLAINT: Pain in the left leg, abnormal troponin levels. SUBJECTIVE: Mr. Lazo has not had any further complaints related to the chest. He has maintained a sinus rhythm. His 12-lead EKG this morning shows sinus rhythm with a diffuse ST-T abnormality which has been present before. His troponin level has dropped to 0.645. He is not having any chest pain. He is resting comfortably. OBJECTIVE: Vital Signs: Blood pressure 108/51, temperature 98.5, pulse 70, respirations 15. General: The patient is awake, sometimes is hard to arouse, but he is comfortable. HEENT: Unremarkable. Chest: Diminished breath sound at the bases without rales. Heart : Heart sounds are regular and rhythmic. He does have a systolic and a systodiastolic murmur over the aortic area. That sounds like aortic regurgitation. No gallop is noted. Abdomen: Nontender. Extremities: Show bilateral above knee amputation. Neurologic: Follows commands. Answers appropriately. LABORATORY DATA: White cell count 10,280, hemoglobin 7.9, hematocrit 24.4. Sodium 136, potassium 4.2, BUN 28, creatinine 5.4. Albumin is 2.7. IMPRESSION: 1. A patient who presented with severe Peripheral arterial occlusive disease/ non healing ulcer. He underwent left above knee amputation. 2. Non-ST myocardial infarction following the aforementioned surgery. 3. Severe coronary heart disease, prior coronary artery bypass surgery. 4. End-stage renal disease on hemodialysis. 5. Diabetes mellitus type 2. RECOMMENDATIONS: From a cardiology viewpoint, the patient appears to be stable at this time. I think he can probably be transferred out of ICU. I will continue present medical therapy as we are doing. Depending on his blood pressure tolerance, we might double up on his Coreg in the next few days. Otherwise, he is clinically more stable. We will follow him along. cc: MD Devin Hui MD MTDD
[2018-10-24] MEDS: ASPIRIN PO SCH (08:57)
[2018-10-24] MEDS: COREG PO SCH ×2 (08:57→20:27)
[2018-10-24] MEDS: LOVENOX SUBQ SCH (08:57)
[2018-10-24] MEDS: NORVASC PO SCH (08:57)
[2018-10-24] MEDS: NEURONTIN PO SCH ×2 (08:57→20:27)
--- NOTE | 2018-10-24 11:07 | PROGRESS NOTE ---
DATE: 10/24/2018 SUBJECTIVE: The patient reports feeling fine. Denies any fever or chills. No nausea or vomiting. OBJECTIVE: Vital Signs: Temperature 98.1 degrees, heart rate 74, respiratory rate 14, blood pressure 113/50, O2 saturation 96% on room air. General Examination: This is a chronically ill- looking, 68-year-old, male, lying in bed, in no acute distress. HEENT: Head is normocephalic and atraumatic. Neck: No JVD noted. No carotid bruits. No lymphadenopathy. No thyromegaly. Cardiovascular Examination: S1 and S2 heard. No murmurs, gallops, or rubs. Regular rate and rhythm. Respiratory Examination: Some crackles in both pulmonary bases. The patient is not using any accessory muscles or having work of breathing. Abdomen: Soft. Nontender to palpation. Nondistended. Bowel sounds present. No organomegaly. Extremities: Bilateral qmqoi-uao-iqgc amputations and the left lower extremity is covered by a dressing with no signs of bleeding or infection on that stump. Neurological Examination: The patient is alert and oriented x3. Moves 4 extremities. Laboratory Data: White cell count 10.28, hemoglobin 7.9, hematocrit 24.4, platelets 307,000. BMP remarkable for creatinine 5.4, BUN 28, albumin 2.7. ASSESSMENT AND PLAN: 1. Status post left styod-gyp-ttbh amputation. The patient is stable. Surgery is following this patient. We will follow recommendations. 2. Non-ST elevation myocardial infarction, following surgery. Dr. Garcia from cardiology is following this patient. Patient is stable at this point. No recommendations from his standpoint from today. We may need to increase the doses of beta blockers down the road but at this point, we will continue with the same management. 3. Anemia, multifactorial. That is a combination of blood loss and chronic disease. Hemoglobin is 7.9. He did receive 1 unit of blood but I prefer to transfuse [address] more [address] his ST elevation myocardial infarction. 4. Encephalopathy. I think the patient continues to improve. 5. End-stage renal disease, on dialysis. Patient is receiving routine dialysis. We will continue with the same management. Dr. Abbott is following this patient. 6. Diabetes mellitus type 2. We will continue with sliding scale insulin and Accu-Chek before meals and also at bedtime. 7. Paroxysmal atrial fibrillation. At this point, the patient continues to be in sinus rhythm. We will continue to monitor. 8. Deep vein thrombosis prophylaxis, on Lovenox. 9. Disposition. I think this patient can go to the regular floor today. We will put orders. We are following this patient closely. cc: Devin Clarke MD
[2018-10-24] MEDS ORDERED: NS 250 ML IV PRN (12:51)
[2018-10-24] MEDS: NORCO-10 PO PRN ×2 (13:25→20:35)
--- NOTE | 2018-10-24 13:28 | NEPHROLOGY PROGRESS NOTE ---
DATE: 10/24/2018 SUBJECTIVE: Patient sitting up in bed. He has been given some pain medication so that he can complete his hygiene etc. OBJECTIVE: Vital Signs: Temperature 98.5 degrees, pulse 70, respiratory rate 15, blood pressure 108/51, intake 1.5 L, output 1.7 L. Elderly gentleman sitting up in bed. He is drowsy but arousable. HEENT: Normocephalic, atraumatic. Oral mucosa moist. Neck: Supple. No JVD. Cardiovascular: Regular rate and rhythm. Pulmonary: Clear bilaterally, is on 2 L nasal cannula. Abdomen: Soft with positive bowel sounds. : Not inspected. Extremities: Bilateral AKA. His left extremity has a dressing but no drainage. Integumentary: Skin is warm and dry otherwise. LAB DATA: WBC of 10.2, hemoglobin 7.9, sodium 136, potassium 4.2, CO2 25, creatinine 5.4. ASSESSMENT AND PLAN: 1. Chronic kidney disease 5D, underwent dialysis yesterday per routine no issues. Will plan to continue his Tuesday, Tuesday, Tuesday schedule while he remains in the hospital. 2. Anemia stable after transfusion. 3. Recent myocardial infarction following surgery. He is being followed by Cardiology with conservative management. 4. Disposition. Will continue his routine dialysis while he is in the hospital and once he is discharged to either home or rehab will continue as an outpatient. Dictated by ALBERT Farr for Sukhjinder Abbott MD Face to face encounter, data reviewed, discussed with Sanna Leon on 10/24/18. I agree with the above assessment and plan of care. cc: MD Devin Santana MD MTDD
--- NOTE | 2018-10-24 18:51 | GENERAL SURGERY PROGRESS NOTE ---
DATE: 10/24/2018 SUBJECTIVE: The patient feels fine today. No complaints. OBJECTIVE: Vital Signs: He is afebrile. Vital signs are stable. General: He is awake and alert, in no acute distress. Cardiovascular: Regular rate and rhythm. Respiratory: No work of breathing. Extremities: Left AKA stump examined. There is no active bleeding. No significant swelling. No erythema or drainage. LABORATORY DATA: White blood cell count 10, hemoglobin 7.9, hematocrit 24.4. Electrolytes reviewed and stable. ASSESSMENT AND PLAN: A 68-year-old male status post left above-knee amputation with postop myocardial infarction. He looks stable. We will transfer him to the floor. Physical therapy is working with him and we are hoping to arrange for discharge home in the next 1 to 2 days. cc: MD Devin Sung MD
[2018-10-24] MEDS: FLOMAX PO SCH (20:27)
[2018-10-25] MEDS: NORCO-10 PO PRN ×2 (03:04→21:14)
[2018-10-25] MEDS: LOPRESSOR PO SCH ×2 (03:54→09:29)
[2018-10-25 06:18] LABS: CALCIUM 8.2 mg/dL (8.8-10.2); CREATININE 6.9 mg/dL (0.7-1.2); POTASSIUM 4.4 mmol/L (3.5-5.1)
[2018-10-25 06:20] LABS: BASO# 0.03 X1000 (0.0-0.2); BASO% 0.3 % (0.0-0.8); EOS# 0.23 X1000 (0.0-0.7); EOS% 2.5 % (0.0-10.0); HEMATOCRIT 29.3 % (42.0-52.0); HEMOGLOBIN 9.4 g/dL (14.0-18.0); IMM GRAN# 0.02 X1000 (0.0-0.04); IMM GRAN% 0.2 % (0.0-0.5); LYMPH# 2.11 X1000 (1.2-3.4); LYMPH% 22.5 % (20.5-51.1); MCH 28.1 PG (27-31); MCHC 32.1 g/dL (33-37); MCV 87.7 FL (81-99); MONO# 1.73 X1000 (0.11-0.59); MONO% 18.5 % (1.7-9.3); MPV 9.4 FL (7.4-10.4); NEUT# 5.25 X1000 (1.4-6.5); PLT 323 X1000 (130-400); RBC 3.34 XMIL (4.7-6.1); RDW 15.5 % (11.5-14.5); WBC 9.37 X1000 (4.8-10.8)
[2018-10-25] MEDS: HUMULIN R SUBQ SCH ×5 (06:37→21:15)
[2018-10-25] MEDS ORDERED: NS 2,000 ML MISC PRN (07:16)
[2018-10-25] MEDS ORDERED: HEPARIN IV PRN (07:16)
[2018-10-25] MEDS ORDERED: TIGHT: 0.2 ML/HR FOR DIALYSIS MISC PRN (07:16)
[2018-10-25] MEDS ORDERED: MIRALAX PO ONE (07:46)
--- NOTE | 2018-10-25 07:55 | GENERAL SURGERY PROGRESS NOTE ---
DATE: 10/25/2018 SUBJECTIVE: He has no complaints or acute events overnight. OBJECTIVE: He is afebrile. Vital signs are stable. General: He is awake, alert, oriented x4 in no acute distress. CV: Regular rate and rhythm. Respiratory: No work of breathing. GI: Soft, nontender. Extremities: The left AKA stump is soft without drainage or erythema from the incision. LABORATORY: White blood cell count 9, hemoglobin 9.4, hematocrit 29. Electrolytes are stable. ASSESSMENT AND PLAN: A 68-year-old male status post left above-knee amputation and postoperative non ST elevation MO. He appears stable. We will transfer to the floor. I anticipate discharge soon. We will follow cardiology's recommendations for any new home medicines. cc: MD Devin Sung MD
[2018-10-25] MEDS: COREG PO SCH ×3 (08:17→21:15)
[2018-10-25] MEDS: LOVENOX SUBQ SCH (08:17)
[2018-10-25] MEDS: NORVASC PO SCH (08:17)
[2018-10-25] MEDS: NEURONTIN PO SCH ×3 (08:17→21:14)
[2018-10-25] MEDS: ASPIRIN PO SCH (08:17)
--- NOTE | 2018-10-25 09:58 | NEPHROLOGY PROGRESS NOTE ---
DATE: 10/25/2018 SUBJECTIVE: Patient resting in bed. No complaints this morning, other than he is constipated. OBJECTIVE: Vital Signs: Temperature 98.3 degrees, pulse 65, respiratory rate 19, blood pressure 120/54. Intake 1.3 L, output 250 mL. General: Elderly gentleman, resting in bed. He is awake and alert. No acute distress. HEENT: Normocephalic, atraumatic. ARMAND. Oral mucosa moist. Neck: Supple without JVD. Cardiovascular: Regular rate and rhythm. Pulmonary : He is clear bilaterally. Remains on O2 supplementation via nasal cannula. He has no increased work of breathing. Abdomen: Soft. Positive bowel sounds. No tenderness. : Not inspected. Extremities: Bilateral AKA. Integumentary: Skin is warm and dry. LABORATORY DATA: WBC of 9.3, hemoglobin 9.4. Sodium 135, potassium 4.4, CO2 of 24, creatinine 6.9. ASSESSMENT AND PLAN: 1. Chronic kidney disease 5D. Today is his routine dialysis day. Will dialyze him on a 2- potassium bath/ultrafiltrate to dry weight, 3.5-hour treatment. 2. Anemia, stable. He did receive a transfusion yesterday. Hemoglobin 9.4 today. 3. Recent myocardial infarction after surgery. Followed by Cardiology. Continuing conservative management. 4. Constipation. The patient has received significant doses of as needed medication after his surgery. He has no orders to assist with bowel management. Will order MiraLAX today and then daily. He may need additional assistance. Dictated by ALBERT Farr for Sukhjinder Abbott MD Face to face encounter, data reviewed, discussed with Sanna Leon on 10/25/18. I agree with the above assessment and plan of care. cc: MD Devin Santana MD [facility]
--- NOTE | 2018-10-25 11:16 | PROGRESS NOTE ---
DATE: 10/25/2018 SUBJECTIVE: Patient reports feeling fine. Denies any fever, chills, or pain in the left lower extremity stump. OBJECTIVE: Vital Signs: Temperature 98.4 degrees, heart rate 76, respiratory rate 19, blood pressure 155/68, O2 saturation 95% on room air. General Examination: This is a chronically ill- looking, 68-year-old male, lying in bed in no acute distress. HEENT: Head is normocephalic, atraumatic. Neck: No JVD noted. No carotid bruits. No lymphadenopathy. Cardiovascular exam: S1, S2 heard. No murmurs, gallops, or rubs. Regular rate and rhythm. Respiratory exam: Clear bilaterally to auscultation. Minimal crackles in both pulmonary bases. The patient is not using any accessory muscles or having work of breathing. Abdomen: Soft. Nontender to palpation. Bowel sounds present. No organomegaly. Extremities: Bilateral above- the-knee amputation and the left lower extremity is covered by dressing. There are no signs of infection. The dressing is dry and clean. Neurological exam: Patient alert oriented x3. Moves 4 extremities. LABORATORY DATA: Reviewed. ASSESSMENT AND PLAN: 1. Status post left exjch-htv-gddk amputation. Dr. Wright from General Surgery following this patient. No new recommendations. Actually the plan is that he is going to be discharged soon. We will follow recommendations. 2. Fnw-VU-bwmzmgy elevation myocardial infarction following surgery. Cardiology is following this patient. Actually, he is on 2 beta blockers, metoprolol and Coreg, and I think this patient needs to be on only 1. So we are going to stop metoprolol and increase the doses of Coreg to 6.25 mg oral twice daily. We will continue to increase Coreg if tolerated. I think with systolic blood pressure between 110 and 140, there was enough room to make this change. 3. Anemia multifactorial. The patient has received 1 unit of blood, and the hemoglobin today is 9.4. We will continue to monitor complete blood count. 4. End-stage renal disease on dialysis. Patient receiving routine dialysis. Dr. Abbott following this patient. 5. Diabetes mellitus type 2. We will continue with sliding scale insulin. Accu-Chek before meals and also at bedtime. 6. Paroxysmal atrial fibrillation. At this point, patient is in sinus rhythm. We will continue to monitor. 7. Deep vein thrombosis prophylaxis. Patient is on Lovenox. DISPOSITION: We are awaiting two days to transfer this patient to a regular floor, but unfortunately there are no beds available. We are going to send this patient to the third floor. cc: Devin Clarke MD
[2018-10-25] MEDS: FLOMAX PO SCH ×2 (19:51→21:15)
--- NOTE | 2018-10-25 21:19 | CARDIOLOGY PROGRESS NOTE ---
DATE: 10/25/2018 CHIEF COMPLAINT: Abnormal EKG, abnormal cardiac enzymes. SUBJECTIVE: Mr. Lazo is really doing better. He is more awake. is at the bedside. They are satisfied with his progress. He is not having any chest pain. He has been eating. OBJECTIVE: Vital Signs: Temperature 98.5, pulse 68, respirations 16, blood pressure 124/52. HEENT: Unremarkable. Chest: Clear to auscultation and percussion. Heart sounds regular and rhythmic. No gallop or murmur. Abdomen is soft, nontender. Extremities showed bilateral above knee amputations. Neurological exam: Follows commands. Moves four extremities. LABORATORY DATA: Hemoglobin today 9.4, hematocrit 29.3. Sodium 135, potassium 4.4, BUN 43, creatinine 6.9. IMPRESSION: 1. Patient who presented with a nonhealing ulcer of toe with ischemia of the limb. He underwent left above the knee amputation on 10/20/2018. 2. Patient with coronary heart disease with previous bypass surgery. 3. Possible non ST myocardial infarction. 4. Diabetes mellitus. 5. End-stage renal disease, on hemodialysis. RECOMMENDATIONS: At this time, the patient clinically appears to be very stable. I agree with Dr. Forbes's intervention of increasing Coreg to 6.25 twice a day. We will probably arrange for a followup at the office after discharge. At this point in time, the patient is clinically stable and from my viewpoint I am going to sign off. You may discontinue enoxaparin by time of discharge. cc: MD Devin Hui MD
[2018-10-26 04:49] LABS: BASO# 0.03 X1000 (0.0-0.2); BASO% 0.4 % (0.0-0.8); EOS# 0.16 X1000 (0.0-0.7); EOS% 1.9 % (0.0-10.0); HEMATOCRIT 30.1 % (42.0-52.0); HEMOGLOBIN 9.8 g/dL (14.0-18.0); LYMPH# 1.88 X1000 (1.2-3.4); LYMPH% 22.7 % (20.5-51.1); MCHC 32.6 g/dL (33-37); MCV 89.1 FL (81-99); MONO# 1.32 X1000 (0.11-0.59); MONO% 15.9 % (1.7-9.3); MPV 9.6 FL (7.4-10.4); NEUT% 59.1 % (42.2-75.2); PLT 344 X1000 (130-400); RBC 3.38 XMIL (4.7-6.1); WBC 8.29 X1000 (4.8-10.8)
[2018-10-26 05:20] LABS: CALCIUM 8.3 mg/dL (8.8-10.2); CREATININE 4.1 mg/dL (0.7-1.2); POTASSIUM 4.3 mmol/L (3.5-5.1)
[2018-10-26] MEDS: NORCO-10 PO PRN ×3 (05:58→18:07)
[2018-10-26] MEDS: HUMULIN R SUBQ SCH ×3 (06:22→15:57)
[2018-10-26] MEDS: COREG PO SCH (08:00)
[2018-10-26] MEDS: NEURONTIN PO SCH (08:00)
[2018-10-26] MEDS: LOVENOX SUBQ SCH (08:00)
[2018-10-26] MEDS: NORVASC PO SCH (08:00)
[2018-10-26] MEDS: ASPIRIN PO SCH (08:00)
[2018-10-26] MEDS ORDERED: MIRALAX PO SCH (09:00)
--- NOTE | 2018-10-26 10:57 | PROGRESS NOTE ---
DATE: 10/26/2018 SUBJECTIVE: Patient reports feeling fine. Denies any fever, chills, nausea, vomiting, or any pain in the left lower extremity stump. OBJECTIVE: Vital Signs: Temperature 98.9, heart rate 76, respiratory rate 18, blood pressure 155/60, O2 saturation 98% on room air. General: This is a chronically ill- looking, 68-year-old, male, lying in bed, in no acute distress. HEENT: Head is normocephalic, atraumatic. Neck: No JVD noted. No carotid bruits. No lymphadenopathy. No thyromegaly. Cardiovascular: S1, S2 heard. No murmurs, gallops, or rubs. Regular rate and rhythm. Respiratory: Clear bilaterally to auscultation. No work of breathing or using accessory muscles. Abdomen: Soft. Nontender to palpation. Bowel sounds present. No organomegaly. Extremities: No clubbing, cyanosis, or edema. Peripheral pulses present in both legs. Respiratory: Minimal crackles in both pulmonary bases. The patient is not using any accessory muscles or having work of breathing. Abdomen: Soft, nontender to palpation. Bowel sounds present. No organomegaly. Extremities: Bilateral gmjqj-mdi-ahve amputation and the left lower extremity who has recent amputation is covered by dressing, clean and dry. No signs of infection. Neurological: Patient alert and oriented x3. Moves 4 extremities. LABORATORY DATA: Reviewed. ASSESSMENT AND PLAN: 1. Status post left jdsmq-ttd-cbra amputation. Dr. Wright from General Surgery following this patient. Apparently, the plan for this patient is to be discharged from the hospital soon. We will follow recommendations. 2. Lbn-HZ-tsghxrx elevation myocardial infarction following surgery. At this point, the patient is on medical management. Cardiology signed off. We are going to increase the doses of Coreg to 12.5 mg p.o. b.i.d. considering that the blood pressure is stable and heart rate is not low. I think at this point, patient can be discharged with that dose. He may need to see Dr. Garcia in the office in 4 weeks. 3. Anemia, multifactorial. Patient has received 1 unit of blood the day before yesterday and hemoglobin is 9.8 today. 4. Diabetes mellitus type 2. We will continue with sliding scale insulin and also Accu-Cheks before meals and also at bedtime. 5. Paroxysmal atrial fibrillation. Patient is on sinus rhythm. We will continue to monitor. 6. Deep vein thrombosis prophylaxis. Patient is on Lovenox that is a therapeutic dose and that can be changed to oral anticoagulation, like for example, Xarelto or Eliquis upon discharge. DISPOSITION: At this point, medically this patient is stable. From my standpoint, patient can be discharged. With bilateral lower extremities amputation I do not think he is a candidate for rehab. So whenever the primary team thinks that this patient can be discharged, he can be sent back home. cc: Devin Clarke MD MTDD
--- NOTE | 2018-10-26 12:59 | NEPHROLOGY PROGRESS NOTE ---
DATE: 10/26/2018 SUBJECTIVE: He is feeling well. No nausea or vomiting or other new symptoms. No shortness of breath. He does still have some pain at his surgical site. OBJECTIVE: Vital Signs: Blood pressure 127/60, heart rate 81, respirations 15, afebrile. General: No acute distress. Skin: Warm and dry. HEENT: Conjunctivae are pink. Neck: Neck veins are not distended. Heart: Regular with systolic murmur. Lungs: Have equal breath sounds. No crackles. Abdomen: Soft, nontender. Bowel sounds present. Extremities: Have trace edema. No clubbing or cyanosis. IMPRESSION: Chronic kidney disease. 5D. His next planned dialysis treatment will be tomorrow. Euvolemic. Electrolytes/acid base/blood pressure all in target. Hemoglobin is improved. cc: MD Devin Santana MD
[2018-10-26 18:16] VITALS: BP 117/54
[2018-10-26] MEDS ORDERED: COREG PO SCH (21:00)
--- NOTE | 2018-10-27 02:36 | GENERAL SURGERY PROGRESS NOTE ---
DATE: 10/26/2018 SUBJECTIVE: The patient is doing well. No chest pain, shortness of breath, or significant extremity pain. He is eating, without any trouble. OBJECTIVE: Vital Signs: He is afebrile. Vital signs are stable. General: He is awake, alert, and oriented x4. No acute distress. Cardiovascular: Regular rate and rhythm. Respiratory: No work of breathing. Extremities: Left stump wound is looking good. The dressing is clean and dry. LABORATORY: White blood cell count 8, hemoglobin 9.8, hematocrit 30. Electrolytes reviewed, and stable. ASSESSMENT AND PLAN: A 68-year-old male, status post left above-knee amputation and perioperative non ST-elevation myocardial infarction. He is stable and ready for discharge. He will follow up with me in 1 week. cc: MD Devin Sung MD
--- NOTE | 2018-12-02 18:16 | DISCHARGE SUMMARY ---
ADMISSION DATE: 10/17/2018 DISCHARGE DATE: 10/26/2018 ADMITTING PHYSICIAN: Dr. Jaskaran Wright. CONSULTANTS: Dr. Sukhjinder Abbott with Nephrology, Dr. Dane Sunshine with the hospitalist service, Dr. Jono Jeronimo for vascular surgery evaluation. ADMITTING DIAGNOSES: 1. Nonhealing left diabetic toe ulcer with osteomyelitis. 2. Severe peripheral arterial disease. 3. End-stage renal disease. 4. Diabetes mellitus. 5. Hypertension. 6. Atrial fibrillation. 7. History of coronary artery disease. DISCHARGE DIAGNOSES: 1. Nonhealing left diabetic toe ulcer with osteomyelitis. 2. Severe peripheral arterial disease. 3. End-stage renal disease. 4. Diabetes mellitus. 5. Hypertension. 6. Atrial fibrillation. 7. History of coronary artery disease. 8. Non ST elevation myocardial infarction. 9. Encephalopathy, resolved. PROCEDURES: Left above-knee amputation. HOSPITAL COURSE: The patient was seen in the [facility] on the day of admission and was noted to have ongoing purulent drainage from his wound with exposed bone and dry gangrene of the soft tissues around the left great toe. He had undergone previous outpatient wound care for over a month and a half and was failing outpatient treatment and required admission for further more definitive care and likely planned above-knee or below-knee amputation. We consulted with Dr. Jeronimo. CT aortogram with runoff of the lower extremities was also obtained and he did not feel there was any revascularization that would be amenable to salvage his toe or foot. Given the patient's long-term immobility and severe peripheral arterial disease, I recommended to him above- knee amputation and he was agreeable. He underwent above-knee amputation on 10/20/2018. For full details of the operation, please see the dictated note. Postoperatively he was hypotensive and required admission to the ICU. Further workup revealed a ael-SI-rniqvxlmy RI. He also had paroxysmal atrial fibrillation. Cardiology saw him and put him on Lovenox a milligram per kilogram daily. Ultimately, they did not feel that he suffered any significant functional loss of the myocardium and recommended continued aspirin, beta-blockers and Lovenox. He did improve hemodynamically, on 10/23/2018 he denied any chest pain, shortness of breath, nausea or vomiting. His lab work showed some anemia which is likely from chronic disease and acute blood loss anemia from surgery. He was given a unit of blood by Dr. Abbott on 10/23/2018, he was being dialyzed by Dr. Abbott throughout his hospital stay. He was ready for transfer to the floor on 10/24/2018, however there were not any beds so he remained in the ICU. Physical therapy began working with him and assisting him with transferring and by 10/26/2018 he denied any pain. He was eating. He was asymptomatic. He was hemodynamically stable. His lab work was stable and he was ready for discharge. He and his assured me that he could get in and out of bed to a chair or the toilet without significant assistance and they wanted to try to go home, so he was discharged home on that day. DISCHARGE MEDICATIONS: Flomax 0.4 mg p.o. at bedtime, Norvasc 5 mg p.o. daily, aspirin 81 mg p.o. daily, isosorbide dinitrate/hydralazine 1 tablet p.o. t.i.d., Zaroxolyn 5 mg p.o. daily, calcium acetate 667 mg p.o. t.i.d., carvedilol 3.125 mg p.o. b.i.d., gabapentin 300 mg p.o. b.i.d., Coreg 12.5 mg p.o. b.i.d., [place] 10 mg p.o. q.4 hours p.r.n. pain. We stopped his Bactrim. FOLLOWUP: A followup appointment with Dr. Wright in 1 to 2 weeks, with Dr. Garcia in 4 weeks. cc: ALBERT Rojas MD
== END 2018-10-26 18:55 | disposition home health service (06) | DRG 616 ==
LOC: DIRADM 22:27 → 3N 10-18 11:32 → ICU 10-20 19:46
PROVIDERS: ADMIT Internal Medicine; ATTEND Surgery
CPT/HCPCS: 36430; 71010; 71045; 75635; 80048; 80053; 80069; 82550; 82553; 82948; 83735; 84484; 85025; 85027; 85610; 85730; 86850; 86900; 86901; 86920; 87449; 88307; 93005; 93010; 93306; 97161; 97530; 99213; A9270; C8929; G0463; J1170; J1644; J1650; J2270; J2310; J2405; J3370; J7030; J7040; P9016; Q9957; Q9967; XXXXX

== ENCOUNTER 2019-02-19 22:36 | Inpatient (IN) ==
[2019-02-19 23:24] LABS: BASO# 0.03 X1000 (0.0-0.2); BASO% 0.3 % (0.0-0.8); EOS# 0.18 X1000 (0.0-0.7); EOS% 1.9 % (0.0-10.0); HEMATOCRIT 30.1 % (42.0-52.0); HEMOGLOBIN 9.9 g/dL (14.0-18.0); IMM GRAN# 0.02 X1000 (0.0-0.04); IMM GRAN% 0.2 % (0.0-0.5); LYMPH# 2.19 X1000 (1.2-3.4); LYMPH% 22.8 % (20.5-51.1); MCH 28.3 PG (27-31); MCHC 32.9 g/dL (33-37); MONO% 8.3 % (1.7-9.3); MPV 10.5 FL (7.4-10.4); NEUT# 6.39 X1000 (1.4-6.5); NEUT% 66.5 % (42.2-75.2); PLT 174 X1000 (130-400); RDW 17.3 % (11.5-14.5); WBC 9.61 X1000 (4.8-10.8)
--- NOTE | 2019-02-19 23:36 | PROVIDER DOCUMENTATION ---
HPI-Chest Pain - General Chief Complaint: Chest Pain Stated Complaint: Chest Pain Time Seen by Provider: 02/19/19 23:17 Source: patient, family Allergies/Adverse Reactions: Patient Allergies Allergy/AdvReac Type Severity Reaction Status Date / Time No Known Allergies Allergy Verified 08/04/18 09:06 Home Medications: Home Medication List Medication Instructions Recorded Confirmed Last Taken Type Calcium Acetate [Phoslo] 667 mg PO TID CC #90 tab 04/04/18 11/05/18 09/27/18 Rx Aspirin 81 mg PO DAILY chewtab 10/26/18 11/05/18 Unknown Rx Carvedilol [Coreg] 25 mg PO BID #60 tab 11/03/18 11/05/18 Unknown Rx Epoetin Puma [Epogen] 10,000 unit SUBQ MoWeFr@0900 vial 11/03/18 11/05/18 Unknown Rx Insulin Glargine [Basaglar] 12 unit SUBQ QAM 30 Days #1 11/03/18 11/05/18 Unknown Rx insuln.pen Levofloxacin [Levaquin] 250 mg PO DAILY #14 tab 11/03/18 11/05/18 Unknown Rx Sennosides/Docusate Sodium 2 ea PO BID #30 tab 11/03/18 11/05/18 Unknown Rx [Pericolace] Tamsulosin [Flomax] 0.4 mg PO DAILY #30 cap 11/03/18 11/05/18 Unknown Rx Bisacodyl [Dulcolax] 10 mg GA BID #20 supp 11/05/18 Unknown Rx Na Phos,M-B/Na Phos,Di-Ba [Fleet 118 ml RC DAILY #2 enema 11/05/18 Unknown Rx Enema] Polyethylene Glycol 3350 [Miralax] 1 cap PO BID #1 powder 11/05/18 Unknown Rx - History of Present Illness-CP Location: reports: substernal Chest Pain Radiation: reports: no radiation Quality of Pain: reports: aching, pressure Severity in ED: moderate Onset/Duration: 4-6 hours ago Timing: resolved prior to arrival, intermittent Context/Activities at Onset: reports: other (PT REPORTS PT TO [facility] TO DAY FOR PLACEMNT DIALYSIS ACCESS LEFT ARM. LEFT ARM HUTING SINCE PROCEDURE TODAY, BEGAN COUGHING, WHITE SPUTUM, THEN SOB, THEN CHEST PAIN ALL OCCURING TODAY. HX DM, ESRD ON DIALYSIS, POST DIABERTIC LEG AMPUTATIONS, HX CAD AND CARDIAC STINTS, HTN, .) Review of Systems - Adult - REVIEW OF SYSTEMS - ADULT Constitutional: reports: no symptoms reported. denies: chills, fever, fatique, night sweats Eyes: reports: no symptoms reported Ears, Nose, Mouth & Throat: reports: no symptoms reported Cardiovascular: reports: no symptoms reported Respiratory: reports: no symptoms reported Gastrointestinal: reports: no symptoms reported Genitourinary: reports: no symptoms reported Musculoskeletal: reports: no symptoms reported Integumentary: reports: no symptoms reported Neurological: reports: no symptoms reported Psychiatric: reports: no symptoms reported Endocrine: reports: no symptoms reported Hematologic/Lymphatic: reports: no symptoms reported Allergic/Immunologic: reports: no symptoms reported All Other Systems: Reviewed and Negative Past History - Adult - PAST MEDICAL HISTORY-ADULT Review of Records: reports: Old Records Reviewed, Nursing Assessment Review, Medications Reviewed, Social history reviewed & non-contributory. Major Childhood Illnesses: reports: denies history Cardiovascular: reports: cardiac disease, CHF, HTN, hyperlipidemia Respiratory: reports: asthma Gastrointestinal: reports: GERD Obstetrical/Gynecological: reports: denies history Genitourinary: reports: dialysis, ESRD, kidney disease Musculoskeletal: reports: chronic pain Neurological: reports: denies history Psychiatric: reports: denies history Endocrine/Immune: reports: Diabetes Other Conditions: reports: cataract/glaucoma - PRIOR SURGERIES/PROCEDURES Surgical/Procedure History: reports: CABG, orthopedic (extremity), other (recent LLE amputation) - IMMUNIZATION STATUS Childhood Immunizations: See Nurse Assessment Flu Vaccine: See Nurse Assessment - FAMILY HISTORY Family History: reviewed, not pertinent Physical Exam-General - PHYSICAL EXAM-ADULT Initial Vital Signs Reviewed: Yes - CONSTITUTIONAL General Appearance: alert, mild distress - EYES Eyes: PERRL/EOMI, pink conjunctivae - HEAD, EARS, NOSE, MOUTH & THROAT HENMT: normocephalic/atraumatic, moist mucous membranes - NECK Neck: non-tender, supple - RESPIRATORY Respiratory: lungs clear, normal breath sounds - CARDIOVASCULAR Cardiovascular: regular rate, rhythm, no edema, no JVD, no murmur, other (CHEST WALL NON-TENDER) - GASTROINTESTINAL (ABDOMEN) Abdominal Exam: normal bowel sounds, non tender, soft, no organomegaly - MUSCULOSKELETAL Back Exam: normal inspection, other Extremity: non-tender, other (BILAT AKAs) - SKIN Integumentary: normal color, normal turgor, warm/dry - NEUROLOGIC Neurologic: disability attorney II-XII nml as tested, grossly normal, no motor/sensory deficits - PSYCHIATRIC Psych/Mental Status: normal mood/affect, normal thought content, normal thought process, oriented x 3 Progress - PLAN OF CARE/RESULTS Progress/Plan/Lab Results: Vital Signs - 8 hr 02/19/19 23:03 Temperature 97.9 F Pulse Rate 74 Respiratory Rate 28 H Blood Pressure 133/62 O2 Sat by Pulse Oximetry 91 L Laboratory Results - last 24 hr 02/19/19 02/19/19 02/19/19 22:58 22:58 22:58 WBC 9.61 RBC 3.50 L Hgb 9.9 L Hct 30.1 L MCV 86.0 MCH 28.3 MCHC 32.9 L RDW Std Deviation 17.3 H Plt Count 174 MPV 10.5 H Immature Gran % (Auto) 0.2 Neut % (Auto) 66.5 Lymph % (Auto) 22.8 [place] % (Auto) 8.3 Eos % (Auto) 1.9 Baso % (Auto) 0.3 Immature Gran # (Auto) 0.02 Neut # (Auto) 6.39 Lymph # (Auto) 2.19 [place] # (Auto) 0.80 H Eos # (Auto) 0.18 Baso # (Auto) 0.03 PT INR PTT (Actin FS) Sodium 138 Potassium 6.5 H* Chloride 101 Carbon Dioxide 18 L Anion Gap 19 BUN 92 H Creatinine 6.8 H Estimated GFR/1.73 m2 10 BUN/Creatinine Ratio 14 Glucose 200 H Calculated Osmolality 310 Calcium 8.7 L Total Bilirubin 0.22 AST 22 ALT 17 Alkaline Phosphatase 95 Creatine Kinase 124 Troponin T Bxq-M-Chofwtddwyc Pept 5861 H Total Protein 8.3 Albumin 3.4 L Globulin 4.9 Albumin/Globulin Ratio 0.7 Plasma Lactate 02/19/19 02/19/19 02/19/19 22:58 22:58 22:58 WBC RBC Hgb Hct MCV MCH MCHC RDW Std Deviation Plt Count MPV Immature Gran % (Auto) Neut % (Auto) Lymph % (Auto) [place] % (Auto) Eos % (Auto) Baso % (Auto) Immature Gran # (Auto) Neut # (Auto) Lymph # (Auto) [place] # (Auto) Eos # (Auto) Baso # (Auto) PT 17.2 H INR 1.30 PTT (Actin FS) 43.4 H Sodium Potassium Chloride Carbon Dioxide Anion Gap BUN Creatinine Estimated GFR/1.73 m2 BUN/Creatinine Ratio Glucose Calculated Osmolality Calcium Total Bilirubin AST ALT Alkaline Phosphatase Creatine Kinase Troponin T 0.039 Kah-P-Qitfcibbuvv Pept Total Protein Albumin Globulin Albumin/Globulin Ratio Plasma Lactate 1.6 Orders Category Date Time Status Cardiac Monitoring DIRECTED Care 02/19/19 23:12 Active Oxygen Therapy- ED Nursing DIRECTED Care 02/19/19 23:12 Active Saline Loc NOW Care 02/19/19 23:12 Active CHEST-1 VIEW [RAD] Stat Exams 02/19/19 23:13 Taken BLOOD CULTURE [BLDCUL] Stat Lab 02/20/19 00:31 Ordered CBC WITH ELECTRONIC DIFF [HEME] Stat Lab 02/19/19 22:58 Completed CK PROFILE [SP CHEM] Stat Lab 02/19/19 22:58 Completed COMPREHENSIVE METABOLIC PANEL [CHEM] Stat Lab 02/19/19 22:58 Completed LACTATE, PLASMA [CHEM] Stat Lab 02/19/19 22:58 Completed PRO B-NATRIURETIC PEPTIDE Stat Lab 02/19/19 22:58 Completed PROTIME WITH INR [COAG] Stat Lab 02/19/19 22:58 Completed PTT [COAG] Stat Lab 02/19/19 22:58 Completed TROPONIN T Stat Lab 02/19/19 22:58 Completed Calcium Gluconate 1 gm Med 02/20/19 00:36 Discontinued 0.9% Sodium Chloride Inj [Ns] 50 ml IV NOW Dextrose 50% Syringe [D50w Syringe] Med 02/20/19 00:35 Discontinued 50 ml IV NOW ONE Insulin Human Regular [Humulin R] Med 02/20/19 00:36 Discontinued 10 unit IV NOW ONE Morphine Med 02/20/19 00:38 Discontinued 4 mg IV NOW ONE Ondansetron [Zofran] Med 02/20/19 00:38 Discontinued 4 mg IV NOW ONE CP/SOB/Palp >45 yrs of Age Stat Oth 02/19/19 23:12 Ordered EKG [EKG] Stat Ther 02/19/19 23:12 Ordered Result Diagrams: 02/19/19 22:58 02/19/19 22:58 Departure - Departure Date of Disposition Decision: 04/02/19 Time of Disposition Decision: 02:12 DIAGNOSIS: CHF exacerbation, Chest pain, Acute dyspnea, Congestive heart failure, ESRD (end stage renal disease) on dialysis, Hyperkalemia Disposition: ADMITTED INPATIENT 09 Certified Medical Emergency: Emergent Condition: Stable Referrals and Follow-Ups: Janie Elise CRNP [Primary Care Provider] - - Critical Care Note This patient required my direct & personal management of CC.: No Attestation - Physician/ SUSY Attestation Patient care was provided by Advanced Practice Provider:: No The physician spent face to face time with patient:: Yes Advanced Practice Provider documentation review:: Supervising physician onsite and consulted in the evaluation and care of this patient. The physician did have a face to face encounter with the patient.
[2019-02-19 23:38] LABS: INR 1.3; PROTIME 17.2 Seconds (11.0-16.0)
[2019-02-19 23:39] LABS: PTT 43.4 Seconds (22.3-41.8)
[2019-02-20 00:02] LABS: ALB/GLOB RATIO 0.7; ALBUMIN 3.4 g/dL (3.5-5.0); CALCIUM 8.7 mg/dL (8.8-10.2); CREATININE 6.8 mg/dL (0.7-1.2); TOTAL BILIRUBIN 0.22 mg/dL (0.20-1.00); TOTAL PROTEIN 8.3 g/dL (6.3-8.3)
[2019-02-20 00:03] LABS: POTASSIUM 6.5 mmol/L (3.5-5.1)
[2019-02-20] MEDS ORDERED: D50W SYRINGE IV ONE (00:35)
[2019-02-20] MEDS ORDERED: HUMULIN R IV ONE (00:36)
[2019-02-20] MEDS ORDERED: CALCIUM GLUCONATE 1 GM in NS 50 ML IV ONE (00:36)
[2019-02-20] MEDS ORDERED: ZOFRAN IV ONE (00:38)
[2019-02-20] MEDS ORDERED: MORPHINE IV ONE (00:38)
[2019-02-20] MEDS ORDERED: KAYEXALATE PO ONE (02:57)
[2019-02-20] MEDS ORDERED: HEPARIN SUBQ SCH (02:57)
[2019-02-20] MEDS: DUONEB (A & A) INH SCH ×6 (03:20→23:05)
--- NOTE | 2019-02-20 05:36 | HISTORY AND PHYSICAL ---
DATE OF SERVICE: 02/20/2019. PRIMARY CARE PHYSICIAN: Unknown. CHIEF COMPLAINT: Shortness of breath and chest pain. HISTORY OF PRESENTING ILLNESS: The patient is a 68-year-old male with a history of end-stage renal disease on renal dialysis Tuesday, Tuesday and Tuesday, diabetes mellitus type 2, hypertension and COPD, who apparently had missed his dialysis session earlier today because his fistula was clogged off. He was sent to [place] and by the time he returned he was not able to get dialysis. He became more short of breath throughout the day, and subsequently it worsened and he had come to the emergency department. In the ED he was dyspneic, he was put on supplemental oxygen. It was also noted that he was hyperkalemic, which was stabilized in the ED with insulin and albuterol nebulizers. Due to his presenting symptoms he will require admission for further management. At the time of my examination the patient had denied any headache, fever, chills, hemoptysis or melena, but complained of shortness of breath and chest discomfort. PAST MEDICAL HISTORY: Includes end-stage renal disease on renal dialysis Tuesday, Tuesday and Tuesday, diabetes mellitus type 2, hypertension, hyperlipidemia, COPD. PAST SURGICAL HISTORY: Bilateral AKA, cataract surgery, back surgeries. ALLERGIES: No known drug allergies. CURRENT MEDICATIONS: Include aspirin 81 mg p.o. daily, carvedilol 25 mg p.o. b.i.d., insulin glargine 12 units subcutaneous q.a.m., tamsulosin 0.4 mg p.o. daily. SOCIAL HISTORY: He is a former smoker. Denies any history of alcohol or illicit drug use. FAMILY HISTORY: No history of coronary disease. REVIEW OF SYSTEMS: A 14-point review of systems is as in the HPI, other systems negative. PHYSICAL EXAMINATION: GENERAL: A cooperative friendly male, he is resting more comfortably now. VITAL SIGNS: Temperature 97.9 degrees, pulse 74, respirations 28, blood pressure 133/62. HEENT: Atraumatic and normocephalic. Extraocular movements intact. PERRLA. NECK: No masses. CHEST: Bibasilar rales. CARDIOVASCULAR: Regular rate and rhythm. ABDOMEN: Soft. Positive bowel sounds. EXTREMITIES: Bilateral AKA. GENITOURINARY: No bladder distention. SKIN: Warm. LABORATORIES AND STUDIES: Sodium 138, potassium 6.5, chloride 101, CO2 is 18, BUN is 92, creatinine is 6.8, glucose is 200. Troponin is 0.039. WBC is 9.61, hemoglobin 9.9, hematocrit 30.1, platelets 174,000. ASSESSMENT: The patient is a 68-year-old male with a history of end-stage renal disease on renal dialysis Tuesday, Tuesday and Tuesday, diabetes mellitus type 2, hypertension, chronic obstructive pulmonary disease, who apparently had missed his dialysis session earlier today due to his fistula not working. He was sent to [place] and by the time he returned he was not able to be dialyzed. He went home and he began having shortness of breath and chest discomfort, and subsequently he had come to the emergency department. At the emergency department he was noted to be hyperkalemic which was stabilized, and due to his overall presenting symptoms he will require admission for further management. 1. Shortness of breath, volume overload. 2. End-stage renal disease. 3. Hyperkalemia. 4. Chest pain. 5. Diabetes mellitus type 2. 6. Hypertension. PLAN: 1. We will admit the patient to the medical floor with telemetry. 2. Continue with supplemental oxygen. 3. We will consult Nephrology for dialysis. 4. We will monitor his potassium and electrolytes and add Kayexalate. 5. We will order a set of cardiac enzymes. 6. We will monitor blood glucose and put the patient on a sliding scale insulin regimen. 7. Monitor blood pressure closely. Resume antihypertensive agent. 8. Put the patient on DVT prophylaxis with heparin. 9. We will continue to follow, reassess and make further recommendation based on the patient's clinical course. cc: Gerardo Longoria MD
[2019-02-20] MEDS ORDERED: TIGHT: 0.2 ML/HR FOR DIALYSIS MISC PRN (06:06)
[2019-02-20] MEDS ORDERED: NS 2,000 ML MISC PRN (06:06)
[2019-02-20] MEDS ORDERED: HEPARIN IV PRN (06:06)
[2019-02-20] MEDS: HUMULIN R SUBQ SCH ×4 (07:00→22:30)
--- NOTE | 2019-02-20 07:30 | Diag Imaging Result Doc PS360 ---
CHEST-1 VIEW - 02/19/2019 INDICATION: chest pain/cough COMPARISON: 11/01/2018 FINDINGS: There is suggestion of infiltrate in the right midlung although this may be an artifact due to skin fold. There is also nonspecific patchy left perihilar infiltrate or atelectasis. Stable sternotomy wires. Stable mild cardiomegaly. No pneumothorax or large pleural effusion. IMPRESSION: Cardiomegaly. Right midlung opacity may be artifact or represent infiltrate. Left perihilar infiltrate or atelectasis. Electronically signed by Ryan Wiggins 02/20/2019 7:28 AM
--- NOTE | 2019-02-20 07:38 | EKG Report ---
Test Performed on : 02/19/2019 10:52:35 PM Test Reason : chest pain Blood Pressure : / mmHG Vent. Rate : 077 BPM Atrial Rate : 077 BPM P-R Int : 234 ms QRS Dur : 100 ms QT Int : 408 ms P-R-T Axes : 056 092 -40 degrees QTc Int : 461 ms Sinus rhythm. with 1st degree AV block. Possible Left atrial enlargement Rightward axis ST & T wave abnormality, consider inferior ischemia Abnormal ECG When compared with ECG of 07-FEB-2019 14:57, (Unconfirmed) T wave inversion more evident in Inferior leads Nonspecific T wave abnormality no longer evident in Lateral leads Unconfirmed Result
--- NOTE | 2019-02-20 11:01 | NEPHROLOGY CONSULTATION ---
DATE: 02/20/2019 REASON FOR ADMISSION: Increased work of breathing. REASON FOR CONSULTATION: End-stage renal disease with assistance with medical management. CONSULTING PHYSICIAN: Dr. Gerardo Longoria. HISTORY OF PRESENT ILLNESS: Mr. Lazo is a 68-year-old male who is known to us for recent hospitalizations in September, October, and January of this year, requiring hemodialysis while being hospitalized. The patient is known from dialysis on Tuesday, Tuesday, Tuesday at the [facility]. He is followed by Dr. Paz from [place]. Unfortunately, he had apparently missed his dialysis session yesterday because of his fistula clotting off. He was sent to [facility] in [place]. By the time he returned, he was unable to get his full dialysis treatment. He was scheduled for treatment today. Unfortunately, during the night, patient developed increased work of breathing. He was brought to the emergency department by his . He was found to be dyspneic, requiring supplemental oxygen. His potassium was found to be elevated at 6.5. He was treated in the emergency room with insulin, D50, albuterol nebulizers. The patient had no changes to his EKG. Potassium this a.m. was down to 5.9. Due to his presenting symptoms, the patient is currently going to be admitted to the medical floor on telemetry for further monitoring and evaluation. He denies any chest pain. Positive for increased work of breathing during the night, though this is improved. He denies any fever, chills, nausea, vomiting, diarrhea. No recent falls. Denies hemoptysis, hematochezia, hematuria. No melena. He currently is on O2 waiting to go to the floor or either to dialysis. PAST MEDICAL HISTORY: Noted to have end-stage renal disease with hemodialysis at the [facility] on Tuesday, Tuesday, Tuesday, diabetes mellitus type 2, hypertension, atrial fibrillation, BPH, peripheral artery disease, coronary artery disease, nonhealing diabetic wounds to his lower extremities. He has had recent episodes of pneumonia with hospital admissions. PAST SURGICAL HISTORY: Right AKA, recent thrombectomy from his fistula, BPH, peripheral artery disease, coronary artery disease, nonhealing diabetic wound as mentioned, anemia of chronic disease. SOCIAL HISTORY: He is , he lives with his spouse. Negative for tobacco, alcohol or illicit drug use. FAMILY HISTORY: Positive for diabetes. Negative for end-stage renal disease except for patient. PATIENT ALLERGIES: Listed as no known drug allergies. HOME MEDICATIONS: Have yet to be reconciled. REVIEW OF SYSTEMS: Review of systems x10 with pertinent positives listed above in the HPI. MOST RECENT VITAL SIGNS: His highest temperature had been 97.9 degrees, blood pressure 132/59, heart rate 64, respirations are 12. He is currently on 6 L nasal cannula, last recorded saturation 96%. He has had 0 recorded in or out. LABORATORY DATA: Sodium 138, potassium 5.9, chloride 101, CO2 18, BUN 92, creatinine 6.8, glucose 200, anion gap 19, calcium 8.7, albumin 3.4. White count 9.61, hemoglobin 9.9, hematocrit 30.1 with a platelet count of 174,000. PHYSICAL EXAMINATION: General: This is a 68-year-old male. He is resting quietly in bed. His states that he has been chilling on and off. She is at the bedside. He appears chronically ill though no acute distress. Skin: Warm and dry. HEENT: Normocephalic, atraumatic. Conjunctiva is pale pink. He has ARMAND. Mucous membranes are dry. Neck: Supple. Trachea midline. He has no evidence of JVD. Cardiovascular: He is regular rate and rhythm. He is without murmur or gallop. Lungs: Diminished breath sounds posterior bases. Otherwise, he is clear to auscultation anterior. Remains on O2. Equal excursion. Abdomen: Soft, nontender. Positive bowel sounds. Genitourinary: Not inspected. Minimal void with dialysis assist. Extremities: He has a right AKA and a left AKA. Integumentary: Skin is warm and dry. Neurological: Alert to person and to place. ASSESSMENT AND PLAN: 1. Chronic kidney disease stage 5D. The patient had missed his dialysis treatment yesterday. We will schedule him today. We will place him on a 2 K bath. He is to dialyze for 3.5 hours. We will attempt to pull patient to his outpatient dry weight. 2. Electrolytes and acid-base balance. The patient has mild hyperkalemia with correction on dialysis. Acidosis with correction on dialysis. Anemia, this remains low but stable. 3. Increased work of breathing. Assistance with dialysis secondary to missed treatment. I would like to thank you for allowing us to follow with this patient. Dictated by ALBERT Miranda for Sukhjinder Abbott MD Face to face encounter, data reviewed, discussed with Dmitry Ag on 02/20/19. I agree with the above assessment and plan of care. cc: ALBERT Miranda MD [facility]
--- NOTE | 2019-02-20 11:39 | PROGRESS NOTE ---
DATE: 02/20/2019 SUBJECTIVE: This morning, Mr. Lazo refers to be doing a little better. He was getting dialysis at the time of the encounter. Briefly, Mr. Lazo is an end-stage renal patient who gets dialysis Tuesday, Tuesday, and Tuesday. I understand he had issues with his fistula yesterday. Went to [place] to get it checked. After the fistula was made functional, it was too late for him to get dialysis. Went home and then he started getting more short of breath, and came to the emergency department where he was evaluated and admitted. OBJECTIVE: Vital Signs: This morning, blood pressure 132/59, pulse is 63, respirations are 14, temperature is 97.9 degrees. General Examination: Mr. Lazo is a 68-year-old, gentleman. He is in bed. He is not in any distress. HEENT: Mucosa is pink and moist. Anicteric. Acyanotic. Neck: Neck is supple. There is positive JVD. Chest: Air entry was bilaterally reduced. There are crackles posteriorly. Cardiovascular: Regular rate and rhythm. Abdomen: Soft, distended. There is some fluid on the lateral aspect of the abdominal wall. Extremities: Positive for bilateral AKA. Musculoskeletal: There are old keloid changes on the anterior chest wall. The patient also has a sternotomy scar noted. DIRECTOR OF LAND: The patient is drowsy but easily arousable and follows basic commands. Laboratory Data: None for today except for potassium is down to 5.9. Patient is getting dialysis and this will be corrected. ASSESSMENT AND PLAN: 1. Acute hypoxemic respiratory failure secondary to fluid overload. 2. Fluid overload, likely due to renal failure. 3. Endstage renal disease, on scheduled dialysis. Patient is getting dialysis now and nephrology has been consulted. 4. Diabetes mellitus, controlled. 5. Hypertension, stable. 6. History of coronary artery disease, status post coronary artery bypass graft in the past. 7. Electrolyte abnormality including hyperkalemia. This was treated yesterday and patient is getting dialysis and will be further addressed. cc: Glenn Peter MD
[2019-02-20 13:05] LABS: BASO# 0.03 X1000 (0.0-0.2); BASO% 0.2 % (0.0-0.8); EOS# 0.08 X1000 (0.0-0.7); EOS% 0.6 % (0.0-10.0); HEMATOCRIT 29.7 % (42.0-52.0); HEMOGLOBIN 9.9 g/dL (14.0-18.0); IMM GRAN# 0.02 X1000 (0.0-0.04); IMM GRAN% 0.2 % (0.0-0.5); LYMPH# 2.03 X1000 (1.2-3.4); LYMPH% 16.2 % (20.5-51.1); MCH 28.2 PG (27-31); MCHC 33.3 g/dL (33-37); MCV 84.6 FL (81-99); MONO# 0.59 X1000 (0.11-0.59); MONO% 4.7 % (1.7-9.3); MPV 10.3 FL (7.4-10.4); NEUT# 9.75 X1000 (1.4-6.5); NEUT% 78.1 % (42.2-75.2); PLT 173 X1000 (130-400); RBC 3.51 XMIL (4.7-6.1); RDW 17.4 % (11.5-14.5)
[2019-02-20 13:46] LABS: CALCIUM 8.6 mg/dL (8.8-10.2); CREATININE 3.4 mg/dL (0.7-1.2); POTASSIUM 3.6 mmol/L (3.5-5.1)
[2019-02-21] MEDS: DUONEB (A & A) INH SCH ×5 (03:15→19:28)
[2019-02-21] MEDS ORDERED: ZOFRAN IV PRN (04:16)
[2019-02-21] MEDS: TYLENOL PO PRN ×2 (04:29→17:51)
[2019-02-21] MEDS ORDERED: TIGHT: 0.2 ML/HR FOR DIALYSIS MISC PRN (06:04)
[2019-02-21] MEDS ORDERED: HEPARIN IV PRN (06:04)
[2019-02-21] MEDS ORDERED: NS 2,000 ML MISC PRN (06:04)
[2019-02-21] MEDS: HUMULIN R SUBQ SCH ×4 (06:39→21:33)
--- NOTE | 2019-02-21 08:08 | NEPHROLOGY PROGRESS NOTE ---
DATE: 02/21/2019 SUBJECTIVE: Mr. Lazo is resting quietly in bed. Head of the bed is slightly elevated. He nods that he is not feeling well today. OBJECTIVE: His most recent vital signs: Patient's last temperature 100.9 degrees during the night, blood pressure 132/49, heart rate 87, respirations are 18. He is currently on a partial non-rebreather. Last recorded saturation is 100%. He has had 80 in. He has had 2 L removed on dialysis yesterday. LABORATORY DATA: Sodium is 136, potassium 3.6, chloride 98, CO2 25, BUN 40, creatinine 3.4, glucose is 141. Anion gap is 13, calcium is 8.6. White count 12.5, hemoglobin 9.9, hematocrit 29.7 with a platelet count of 173,000. The patient has a low troponin completed yesterday. A.m. labs are currently pending for today. PHYSICAL EXAMINATION: General: This is a 68-year-old male. He is resting quietly in bed. He appears chronically ill, no acute distress. Skin: Warm and dry. HEENT: Normocephalic, atraumatic. Conjunctiva is pale. He has ARMAND. Mucous membranes are dry. Neck: Supple. Trachea midline. No evidence of JVD. Cardiovascular: He is regular rate and rhythm. He is without murmur or gallop. Lungs: Diminished breath sounds with poor inspiratory effort. Remains on O2 support. Abdomen: Large, round, soft, nontender. Positive bowel sounds. Genitourinary: Not inspected, minimal void with dialysis assist. Extremities: Have bilateral AKA. No edema present to the hip region. Integumentary: Skin is warm and dry. No rashes or lesions evident. Neurological: Alert to person and place. ASSESSMENT AND PLAN: 1. Chronic kidney disease stage 5D. The patient had dialysis yesterday, tolerated this well. We will plan to dialyze patient again today due to this being his routine daily schedule to get him back on his outpatient scheduling for discharge. 2. Electrolytes and acid-base balance. These are acceptable. 3. Anemia. This remains low but stable. 4. Mild leukocytosis. This is being followed by the primary care team. I would like to thank you for allowing us to follow with this patient. Dictated by ALBERT Miranda for Sukhjinder Abbott MD Face to face encounter, data reviewed, discussed with Dmitry Ag on 02/21/19. I agree with the above assessment and plan of care. cc: ALBERT Miranda MD [facility]
[2019-02-21] MEDS: HEPARIN SUBQ SCH ×2 (08:45→21:32)
[2019-02-21 09:55] LABS: ALBUMIN 3.3 g/dL (3.5-5.0); CALCIUM 8.5 mg/dL (8.8-10.2); CREATININE 6.4 mg/dL (0.7-1.2); PHOSPHORUS 3.7 mg/dL (2.7-4.5); POTASSIUM 4.5 mmol/L (3.5-5.1)
[2019-02-21 12:27] LABS: HEPATITIS PROFILE ACUTE SEE COMMENTS
--- NOTE | 2019-02-21 17:55 | PROGRESS NOTE ---
DATE: 02/21/2019 SUBJECTIVE: Today Mr. Lazo refers to be doing fairly okay. Denies any complaints. OBJECTIVE: Vital signs: Blood pressure is 142/58, pulse is 88, respirations 20, temperature 98.8 degrees, patient was saturating 100% on nasal cannula. General: Mr. Lazo is a 68-year-old gentleman. He was in bed, no distress. Mucosa is pink and moist. Anicteric. Acyanotic. Neck is supple. There is still a positive JVD. Chest: Air entry is bilaterally reduced. A few crackles posteriorly. Cardiovascular: Regular rate and rhythm. Gastrointestinal: Abdomen is soft, minimally distended, but nontender. Bowel sounds present. Extremities: There is bilateral AKA. Skin: Chest has an old sternotomy scar. Central Nervous System: Patient is awake, alert, follows some basic commands. DIAGNOSTIC STUDIES: Chemistry has been reviewed, all consistent with renal failure. Hepatitis panel is negative. ASSESSMENT: 1. Acute hypoxemic respiratory failure secondary to fluid overload. This is improved after dialysis with ultrafiltration yesterday. 2. Fluid overload secondary to renal failure. The patient was ultrafiltrated yesterday; 2000 was removed. There is a plan to do another dialysis today with ultrafiltration. 3. Endstage renal disease, on scheduled dialysis. Nephrology is on board. 4. Diabetes mellitus is controlled on insulin regimen. 5. Hypertension, controlled. 6. History of coronary artery disease status post coronary artery bypass grafting (CABG) in the past. The patient is currently asymptomatic. We will continue with his regular home medications. 7. Electrolyte abnormality, including hyperkalemia, improved with dialysis. In general, I think Mr. Lazo is doing a lot better. Still seems to have a little bit of fluid overload. There is a plan for dialysis today. Hopefully in the next 24 to 48 hours, we can have him euvolemic and get him discharged. cc: Glenn Peter MD
[2019-02-21] MEDS: COREG PO SCH (21:31)
[2019-02-21] MEDS: DILAUDID IV PRN (21:32)
[2019-02-22] MEDS: DUONEB (A & A) INH SCH ×7 (01:13→23:00)
[2019-02-22] MEDS: DILAUDID IV PRN (05:58)
[2019-02-22] MEDS: HUMULIN R SUBQ SCH ×4 (06:11→21:50)
[2019-02-22 06:38] LABS: ALBUMIN 3.4 g/dL (3.5-5.0); CALCIUM 8.4 mg/dL (8.8-10.2); CREATININE 5.4 mg/dL (0.7-1.2); PHOSPHORUS 4.2 mg/dL (2.7-4.5); POTASSIUM 3.9 mmol/L (3.5-5.1)
[2019-02-22] MEDS ORDERED: VITAMIN D PO SCH (09:00)
[2019-02-22] MEDS: XARELTO PO SCH (09:04)
[2019-02-22] MEDS: FLOMAX PO SCH (09:04)
[2019-02-22] MEDS: PHOSLO PO SCH ×3 (09:04→16:57)
[2019-02-22] MEDS: NORVASC PO SCH (09:04)
[2019-02-22] MEDS: COREG PO SCH ×2 (09:04→21:50)
[2019-02-22] MEDS: ASPIRIN PO SCH (09:04)
[2019-02-22] MEDS: BASAGLAR SUBQ SCH (09:04)
[2019-02-22] MEDS: HEPARIN SUBQ SCH (09:13)
[2019-02-22 09:17] LABS: BASO# 0.03 X1000 (0.0-0.2); BASO% 0.3 % (0.0-0.8); EOS# 0.22 X1000 (0.0-0.7); EOS% 2.5 % (0.0-10.0); HEMATOCRIT 27.6 % (42.0-52.0); HEMOGLOBIN 8.9 g/dL (14.0-18.0); IMM GRAN# 0.02 X1000 (0.0-0.04); IMM GRAN% 0.2 % (0.0-0.5); LYMPH# 2.03 X1000 (1.2-3.4); LYMPH% 23.4 % (20.5-51.1); MCH 28.3 PG (27-31); MCHC 32.2 g/dL (33-37); MCV 87.9 FL (81-99); MONO# 0.99 X1000 (0.11-0.59); MONO% 11.4 % (1.7-9.3); MPV 10.9 FL (7.4-10.4); NEUT# 5.38 X1000 (1.4-6.5); NEUT% 62.2 % (42.2-75.2); PLT 161 X1000 (130-400); RBC 3.14 XMIL (4.7-6.1); RDW 18.3 % (11.5-14.5); WBC 8.67 X1000 (4.8-10.8)
--- NOTE | 2019-02-22 09:42 | Diag Imaging Result Doc PS360 ---
EXAM: CHEST-PORTABLE 02/22/2019 HISTORY: dyspnea TECHNIQUE: AP portable at 0932 COMMENT: There are calcified nodes present in the right tracheobronchial and hilar regions. The heart size is enlarged. There is increased interstitial opacity bilaterally which has improved slightly since 02/19/2019. IMPRESSION: Improved pulmonary edema. Electronically signed by Lee Guevara 02/22/2019 9:39 AM
--- NOTE | 2019-02-22 10:28 | PROGRESS NOTE ---
DATE: 02/22/2019 SUBJECTIVE: Today, Mr. Lazo refers to be doing fairly okay. Shortness of breath has significantly improved. However, he said he has been coughing up some dark brownish expectoration, concerning for blood. OBJECTIVE: Vital Signs: Blood pressure is 126/56, pulse is 70, respirations are 18, temperature is 98.9 degrees. General Examination: Mr. Lazo is a 68-year-old, gentleman. He is in bed. He is not in any cardiopulmonary distress. HEENT: Mucosa is pink and moist. Anicteric. Acyanotic. Neck: Supple. No JVD this morning. Chest: Air entry is bilaterally reduced. There are still a few crackles posteriorly but no wheezing. Cardiovascular: Regular rate and rhythm. No murmurs, no rubs, no gallops. GI: Abdomen is soft, distended, but nontender. Bowel sounds present. Extremities: There is bilateral AKA. Integumentary: On the chest wall, there is an old sternotomy scar. FILLER FEEDER: The patient is awake, alert, and follows commands. Laboratory Data: WBC is down to 8.67, hemoglobin is 8.9, platelet count of 161,000. Chemistry is also reviewed and consistent with renal failure. Diagnostic Studies: A chest x-ray this morning shows improved pulmonary edema. ASSESSMENT: 1. Acute hypoxemic respiratory failure secondary to pulmonary edema from fluid overload. This has significantly improved with ultrafiltration. Patient has been dialyzed twice. 2. Fluid overload secondary to renal failure, improved. 3. Endstage renal disease, on scheduled hemodialysis (Tuesday, Tuesday, and Tuesday). Nephrology is on board. 4. Hemoptysis. This could be from the pulmonary edema. The patient is also on anticoagulation which could have precipitated this in some way. I do not get the sense that it is infectious. His white cell count is fine. His vitals are stable. His chest x-ray actually seems to be improving with hemofiltration and he is not on antibiotics. I would prefer to keep an eye on this. 5. History of coronary artery disease, status post coronary artery bypass graft. The patient is currently asymptomatic. We will continue with his home medications. 6. Hyperkalemia on presentation, resolved with hemodialysis. PLAN: In general, I think Mr. Lazo is clinically stable. Shortness of breath has significantly improved. His chest congestion and pulmonary edema have significantly improved with ultrafiltration. He had some mild hemoptysis which I think is a combination of the pulmonary edema and the fact that he is on anticoagulants. We will keep an eye on this today. We are going to transfer Mr. Lazo from the [facility] to a regular medical floor, wait for final recommendations from nephrology today. I think Mr. Lazo can potentially be discharged later today if it is okay with nephrology, or hopefully tomorrow. cc: Glenn Peter MD
--- NOTE | 2019-02-22 15:34 | NEPHROLOGY PROGRESS NOTE ---
DATE: 02/22/2019 TIME SEEN: 0845. SUBJECTIVE: Mr. Lazo is sitting up in bed. His is assisting him to eat his breakfast. He denies any chest pain. No increased work of breathing. OBJECTIVE: His most recent vital signs: Temperature 98.2, pressure 121/47, heart rate 81, respirations 16, he is on 2 L nasal cannula, last recorded saturation 98%. Intake and output: He has had 780 in. He has had 2 L removed on dialysis yesterday. DIAGNOSTIC STUDIES: Sodium 140, potassium 3.9, chloride 97, his CO2 is 26, BUN 35, creatinine 5.4, glucose is 100, anion gap is 17, calcium 8.4, phosphorus 4.2, albumin 3.4. Previous hemoglobin 9.9. Blood cultures are currently negative. PHYSICAL EXAMINATION: General: This is a 68-year-old male, resting quietly in bed. He appears chronically ill no acute distress. Skin is warm and dry. HEENT: Normocephalic, atraumatic. Conjunctivae pale. He has ARMAND. Mucous membranes dry. Neck: Supple. Trachea midline. No JVD. Cardiovascular: Regular rate and rhythm without murmur or gallop. Lungs: Clear to auscultation anteriorly, equal excursion on O2 with poor inspiratory effort. Abdomen: Large, soft, nontender. Positive bowel sounds. Genitourinary: Not inspected. Minimal void with dialysis assist. Extremities: Bilateral AKA. No edema present in the hip region. Integumentary: Warm and dry without rashes or lesions. Neurological: Alert and oriented x3. ASSESSMENT AND PLAN: 1. Chronic kidney disease, stage 5D. The patient is due for dialysis in the a.m. He was dialyzed several days straight to assist with his fluid volume overload and hyperkalemia. These all are acceptable. No indications for intervention today. 2. Electrolytes, acid-base balance, and anemia. These are all acceptable. 3. Mild leukocytosis. Followed by the primary care team. I would like to thank you for allowing us to follow with this patient. Dictated by ALBERT Miranda for Sukhjinder Abbott MD cc: ALBERT Miranda MD [facility]
[2019-02-23] MEDS: DUONEB (A & A) INH SCH ×4 (03:35→15:56)
[2019-02-23] MEDS: HUMULIN R SUBQ SCH ×3 (06:32→16:21)
[2019-02-23 07:24] LABS: ALBUMIN 3.4 g/dL (3.5-5.0); CALCIUM 8.9 mg/dL (8.8-10.2); PHOSPHORUS 5.4 mg/dL (2.7-4.5); POTASSIUM 3.7 mmol/L (3.5-5.1)
[2019-02-23] MEDS ORDERED: NS 2,000 ML MISC PRN (10:04)
[2019-02-23] MEDS ORDERED: HEPARIN IV PRN (10:04)
[2019-02-23] MEDS ORDERED: TIGHT: 0.2 ML/HR FOR DIALYSIS MISC PRN (10:04)
[2019-02-23] MEDS: BASAGLAR SUBQ SCH (10:16)
[2019-02-23] MEDS: DILAUDID IV PRN (10:28)
[2019-02-23] MEDS: PHOSLO PO SCH ×2 (16:15→16:17)
[2019-02-23] MEDS: ASPIRIN PO SCH (16:16)
[2019-02-23] MEDS: NORVASC PO SCH (16:17)
[2019-02-23] MEDS: COREG PO SCH (16:17)
[2019-02-23] MEDS: XARELTO PO SCH (16:17)
[2019-02-23] MEDS: FLOMAX PO SCH (16:17)
[2019-02-23 17:52] VITALS: BP 171/64
--- NOTE | 2019-02-23 17:52 | NEPHROLOGY PROGRESS NOTE ---
DATE: 02/23/2019 SUBJECTIVE: He is on dialysis currently. He is somewhat diaphoretic. His blood pressure has just recovered from mild hypotension with lowest measured systolic pressure 102. No chest pain, palpitations, nausea, associated with the episode. OBJECTIVE: Vital Signs: Blood pressure 148/70, heart rate 72, respirations 17, afebrile. General: No acute distress. Skin: Warm, but diaphoretic. Eyes: Pupils are equal. Conjunctivae are pink. Neck: Neck veins are not visible. Heart: Regular. No gallops. Lungs: Equal. No crackles or wheezes. Abdomen: Soft, nontender. Bowel sounds present. Extremities: With trace edema. No clubbing or cyanosis. IMPRESSION: Chronic kidney disease 5D. He is undergoing his routine dialysis. We were challenging his dry weight again today, but it is apparent that we have achieved his dry weight given his symptomatic hypotension. We have adjusted his UF goal accordingly. Electrolytes/acid base in target. Hemoglobin is below target but stable. Okay for discharge from my perspective. cc: Sukhjinder Abbott MD
--- NOTE | 2019-02-24 08:37 | DISCHARGE SUMMARY ---
ADMISSION DATE: 02/20/2019 DISCHARGE DATE: 02/23/2019 DISPOSITION: Home. FOLLOW-UP: 1. Dr. Abbott. 2. ALBERT Frank. CONSULTATION DURING THIS ADMISSION: Nephrology was consulted. Patient was seen by Dr. Abbott. INVASIVE PROCEDURES DONE DURING THIS ADMISSION: None. IMAGING STUDIES OF SIGNIFICANCE: 1. A chest x-ray on presentation did show cardiomegaly, right midlung opacity may be artifact or represent infiltrate, left perihilar infiltrate or atelectasis. 2. A repeat chest x-ray done yesterday shows improved pulmonary edema. ADMISSION DIAGNOSES: 1. Shortness of breath, volume overload. 2. Endstage renal disease. 3. Hyperkalemia. 4. Dyslipidemia. DISCHARGE DIAGNOSES: 1. Acute hypoxemic respiratory failure secondary to pulmonary edema from fluid overload, improved with ultrafiltration. 2. Fluid overload secondary to renal failure, improved. 3. Endstage renal disease on scheduled hemodialysis Tuesday, Tuesday, and Tuesday. 4. Hemoptysis secondary to pulmonary edema, improved. 5. History of coronary artery disease status post coronary artery bypass grafting in the past. Patient is currently asymptomatic. Will continue with his home medications. 6. Hyperkalemia on presentation, resolved with hemodialysis. DISCHARGE MEDICATIONS: 1. Calcium acetate. 2. Aspirin. 3. Tamsulosin 0.5 mg daily. 4. Carvedilol 25 mg b.i.d. 5. Insulin glargine 12 units subcutaneously q.a.m. 6. Cyclobenzaprine 10 at bedtime. 7. Rivaroxaban 50 mg daily. 8. Amlodipine 5 mg daily. 9. Gabapentin has been discontinued. PRESENTING COMPLAINT: Shortness of breath and chest pain. HISTORY OF PRESENT COMPLAINT: Mr. Lazo is a 68-year-old male with a known history of end-stage renal disease on scheduled hemodialysis, type 2 diabetes, COPD, came to the emergency department because he had missed dialysis early on that day because his fistula was clogged. Patient was sent to [place]. Upon returning, dialysis unit was closed so he went home. However, at home, he started having more difficulty breathing, so came to the emergency department, was found to be in fluid overload. He was admitted for further medical treatment. HOSPITAL COURSE: Mr. Lazo was dialyzed 2 days in a row. His fluid status got improved and electrolyte abnormality also got normalized. Today he has gotten another dialysis. During the hospital course, he also did complain of mild hemoptysis which resolved. The patient's chest x- ray did reveal some infiltrates. He was initially started on antibiotics. However, his white cell count has been normal and he is not having any signs of infection. I do not think he does have pneumonia, so we discontinue the antibiotics. He feels a lot better today. We are going to discharge him after dialysis and he will follow up with his primary care doctor and also with Dr. Abbott. All the discharge instructions have been discussed with him. He voices understanding. TIME SPENT FOR DISCHARGE: 36 minutes. cc: MD Sukhjinder Zaldivar MD Anna M. Dumas, CRNP MTDD
== END 2019-02-23 18:00 | disposition home health service (06) | DRG 640 ==
LOC: SUPCPDRO → ED 22:36 → SUATTDRO 02-20 02:43 → EDIPHOLD 02-20 02:43 → 3S 02-20 22:15 → 4N 02-22 15:27
PROVIDERS: ATTEND Internal Medicine
CPT/HCPCS: 71010; 71045; 80048; 80053; 80069; 80074; 82550; 82948; 83605; 83880; 84132; 84484; 85025; 85610; 85730; 87040; 87070; 87205; 93005; 94640; 94761; 94762; 96365; 96366; 96375; 99285; A9270; J0610; J1170; J1644; J2270; J2405; J7030; XXXXX

== ENCOUNTER 2019-08-14 14:11 | Observation (INO) ==
--- NOTE | 2019-08-14 14:32 | PROVIDER DOCUMENTATION ---
HPI-General Adult - General Chief Complaint: Bleeding Disorder Stated Complaint: DIALYSIS PORT BLEEDING Time Seen by Provider: 08/14/19 14:19 Source: patient, family Allergies/Adverse Reactions: Patient Allergies Allergy/AdvReac Type Severity Reaction Status Date / Time No Known Allergies Allergy Verified 03/18/19 15:16 Home Medications: Home Medication List Medication Instructions Recorded Confirmed Last Taken Type Calcium Acetate [Phoslo] 667 mg PO TID CC #90 tab 04/04/18 08/14/19 08/14/19 Rx 667 MG Aspirin 81 mg PO DAILY chewtab 10/26/18 08/14/19 08/14/19 Rx 81 MG Carvedilol [Coreg] 25 mg PO BID #60 tab 11/03/18 08/14/19 08/14/19 Rx 25 MG Insulin Glargine [Basaglar] 12 unit SUBQ QAM 30 Days #1 11/03/18 08/14/19 08/14/19 Rx insuln.pen 12 UNIT Tamsulosin [Flomax] 0.4 mg PO DAILY #30 cap 11/03/18 08/14/19 08/14/19 Rx 0.4 MG Amlodipine Besylate 5 mg PO DAILY 02/20/19 08/14/19 08/14/19 History 5 MG Cholecalciferol (Vitamin D3) 1 cap PO ORDERED 02/20/19 08/14/19 08/14/19 History [Vitamin D3] 1 CAP Cyclobenzaprine [Flexeril] 10 mg PO QHS 02/20/19 08/14/19 08/14/19 History 10 MG Rivaroxaban [Xarelto] 15 mg PO DAILY 02/20/19 08/14/19 08/14/19 History 15 MG Ondansetron Odt [Zofran 4 mg Odt] 4 mg PO Q6H PRN PRN #15 tab 02/23/19 08/14/19 08/14/19 Rx 4 MG - History of Present Illness -Gen Adult Nature of Presenting Problems: This is a 69yo male who presents via EMS for dialysis port bleeding. Per EMS the EBL was about 100mls. The event occured around 2pm and the bleeding shortly controlled by the fire department with a tourniquet. Enroute the patients vital signs were stable and on presentation he was altert and interactive. He reports his last dialysis episode was tuesday and he has had an issue with the port bleeding before. He does reports some dizziness chronically as well as abdominal pain that has been present for weeks. He denies fevers or any trauma to the the port site. Review of Systems - Adult - REVIEW OF SYSTEMS - ADULT Constitutional: denies: fever Eyes: reports: no symptoms reported. denies: eye pain Ears, Nose, Mouth & Throat: reports: no symptoms reported. denies: throat pain Cardiovascular: reports: no symptoms reported. denies: chest pain Respiratory: reports: no symptoms reported Gastrointestinal: reports: abdominal pain (several weeks) Genitourinary: reports: no symptoms reported Musculoskeletal: reports: other (phantom leg pain) Integumentary: reports: other (poor healing at dialysis site) Neurological: reports: dizziness/vertigo Psychiatric: reports: no symptoms reported Endocrine: reports: no symptoms reported Hematologic/Lymphatic: reports: other (bleeding from dialysis site) Allergic/Immunologic: reports: no symptoms reported Past History - Adult - PAST MEDICAL HISTORY-ADULT Review of Records: reports: Old Records Reviewed Major Childhood Illnesses: reports: denies history Cardiovascular: reports: cardiac disease, CHF, HTN, hyperlipidemia Respiratory: reports: asthma Gastrointestinal: reports: GERD Obstetrical/Gynecological: reports: denies history Genitourinary: reports: dialysis, ESRD, kidney disease Musculoskeletal: reports: chronic pain Neurological: reports: denies history Psychiatric: reports: denies history Endocrine/Immune: reports: Diabetes Other Conditions: reports: cataract/glaucoma - PRIOR SURGERIES/PROCEDURES Surgical/Procedure History: reports: CABG, orthopedic (extremity), other (recent LLE amputation) - IMMUNIZATION STATUS Childhood Immunizations: See Nurse Assessment Flu Vaccine: See Nurse Assessment - FAMILY HISTORY Family History: diabetes, cancer - SOCIAL HISTORY Smoking: denies Substance Use: none/never Alcohol Use Frequency: never Physical Exam-General - PHYSICAL EXAM-ADULT Initial Vital Signs Reviewed: Yes - CONSTITUTIONAL General Appearance: appears well, alert, no apparent distress - EYES Eyes: negative: scleral icterus - HEAD, EARS, NOSE, MOUTH & THROAT HENMT: normocephalic/atraumatic, moist mucous membranes - NECK Neck: non-tender, normal inspection - RESPIRATORY Respiratory: no respiratory distress, other (slight decreased breath sounds/rales in the LLL, all other lung ruiz clear with good airation.) - CARDIOVASCULAR Cardiovascular: regular rate, rhythm - GASTROINTESTINAL (ABDOMEN) Abdominal Exam: non tender, soft - MUSCULOSKELETAL Extremity: other (Left arm with pressure dressing applied over dialysis port, no gross bleeding noted. Bilateral above the knee amputations) - SKIN Integumentary: normal color, normal turgor - NEUROLOGIC Neurologic: grossly normal - PSYCHIATRIC Psych/Mental Status: normal mood/affect, normal thought content, normal thought process Progress - PLAN OF CARE/RESULTS Progress/Plan/Lab Results: Vital Signs - 8 hr 08/14/19 14:29 Temperature 97.7 F Pulse Rate 65 Respiratory Rate 17 Blood Pressure 131/72 O2 Sat by Pulse Oximetry 98 Result Diagrams: 08/14/19 14:52 - REASSESSMENT Reassessment #1 Status: improving (Evaluated access site with Dr. La, wound appear hemostatic. Pressure dressing placed on the wound. Will call Dr. Corrales office for further recomendations.) Departure - Departure Date of Disposition Decision: 08/14/19 Time of Disposition Decision: 19:38 DIAGNOSIS: Bleeding, Fistula, End stage chronic kidney disease Disposition: ADMITTED INPATIENT 09 Certified Medical Emergency: Emergent Condition: Fair Referrals and Follow-Ups: Janie Elise CRNP [Primary Care Provider] - - Critical Care Note This patient required my direct & personal management of CC.: No Attestation - Physician/ SUSY Attestation Patient care was provided by Advanced Practice Provider:: No The physician spent face to face time with patient:: Yes Advanced Practice Provider documentation review:: Supervising physician onsite and consulted in the evaluation and care of this patient. The physician did have a face to face encounter with the patient.
[2019-08-14 15:22] LABS: BASO# 0.02 X1000 (0.0-0.2); BASO% 0.3 % (0.0-0.8); EOS# 0.18 X1000 (0.0-0.7); EOS% 2.9 % (0.0-10.0); HEMATOCRIT 40.9 % (42.0-52.0); HEMOGLOBIN 13.5 g/dL (14.0-18.0); LYMPH# 2.14 X1000 (1.2-3.4); LYMPH% 34.1 % (20.5-51.1); MCH 28.3 PG (27-31); MCV 85.7 FL (81-99); MONO# 0.81 X1000 (0.11-0.59); MONO% 12.9 % (1.7-9.3); MPV 10.8 FL (7.4-10.4); NEUT# 3.13 X1000 (1.4-6.5); NEUT% 49.8 % (42.2-75.2); PLT 181 X1000 (130-400); RBC 4.77 XMIL (4.7-6.1); RDW 18.5 % (11.5-14.5); WBC 6.28 X1000 (4.8-10.8)
[2019-08-14 15:32] LABS: INR 1.56; PROTIME 18.9 Seconds (11.0-16.0)
[2019-08-14 15:33] LABS: PTT 45.1 Seconds (22.3-41.8)
--- NOTE | 2019-08-14 22:13 | GENERAL SURGERY CONSULTATION ---
DATE: 08/14/2019 REASON FOR CONSULTATION: Bleeding left upper extremity arteriovenous fistula. REQUESTING PHYSICIAN: Emergency department. HISTORY OF PRESENT ILLNESS: This is a 69-year-old gentleman with multiple medical issues, including end-stage renal disease. He has had peripheral vascular disease, diabetes, and bilateral above knee amputations. He has a left upper extremity arteriovenous fistula placed by nelson Cardoza yesterday. He is on Eliquis chronically and developed some bleeding, approximately 200 mL. EMS was called. Tourniquet was placed and the bleeding had stopped. He had a duplex that showed maintained flow with no pseudoaneurysm. The fistula had been functioning normally until this event. MEDICAL HISTORY: 1. End-stage renal disease. 2. Peripheral vascular disease. 3. Diabetes. 4. Hypertension. SURGICAL HISTORY: He has had dialysis access procedures, including left upper extremity AV fistula. SOCIAL HISTORY: No current tobacco, alcohol, drugs. FAMILY HISTORY: Reviewed noncontributory. REVIEW OF SYSTEMS: Ten-point negative other than what is mentioned in HPI. EXAM: VITAL SIGNS: He is afebrile, pulse 65, blood pressure 131/72, oxygen saturation is 90%. General: He is alert, in no acute distress. HEENT: There is no scleral icterus. No cervical mass. Cardiovascular: Normal rate. Pulmonary: No increased work of breathing. Abdomen: Soft. Extremities: Warm, dry. Peripheral vascular: He has got bilateral lower extremity above-knee amputations. His left upper extremity arteriovenous fistula has a strong thrill with no bruising or pseudoaneurysm. No swelling. Psychiatric: Appropriate affect. LABORATORY DATA: White count 6, hematocrit 40. INR is 1.56. ASSESSMENT AND PLAN: This is a gentleman with bleeding from his AV fistula. Duplex shows no evidence of complication or thrombosis. We will observe tonight, given that he is anticoagulated. Plan for maybe dialysis tomorrow. He has been admitted to the hospital. We will follow along. cc: Rickie Laird MD
--- NOTE | 2019-08-14 22:25 | HISTORY AND PHYSICAL ---
PRIMARY CARE PROVIDER: Janie Elise. CHIEF COMPLAINT: Left upper extremity fistula bleeding. HISTORY OF PRESENTING ILLNESS: A 69-year-old male with a history of end-stage renal disease on renal dialysis Tuesday, Tuesday, Tuesday, diabetes mellitus type 2, hypertension, coronary disease, who had presented to emergency department 1 day of history of having bleeding from his left upper extremity fistula. The patient was evaluated in the emergency department. Case was discussed with surgery who recommended we admit patient for observation further evaluation, management. The patient is on anticoagulant with Xarelto. Time my examination patient denied any headache, fever, chills, chest pain, shortness of breath or weight changes, complained of the bleeding from left upper extremity fistula. PAST MEDICAL HISTORY: Includes end-stage renal disease, diabetes mellitus type 2, hypertension, hyperlipidemia, coronary artery disease. PAST SURGICAL HISTORY: Left upper extremity fistula, coronary bypass, bilateral AKA, back surgery, cataract surgery. ALLERGIES: No known drug allergies. CURRENT MEDICATIONS: Amlodipine 5 mg p.o. daily, aspirin 81 mg p.o. daily, carvedilol 25 mg p.o. b.i.d., Flexeril 10 mg p.o. at bedtime, gabapentin 300 mg p.o. daily, insulin glargine 12 units subcutaneous q.a.m., Xarelto 15 mg p.o. daily, tamsulosin 0.4 mg p.o. daily, tramadol 50 mg p.o. daily. SOCIAL HISTORY: Former smoker. History of alcohol abuse in the past. Denies any illicit drug use. FAMILY HISTORY: No history of coronary disease. REVIEW OF SYSTEMS: Fourteen point review of systems is as in HPI. Other systems negative. PHYSICAL EXAMINATION: GENERAL: Cooperative, friendly male. He is resting comfortably now. VITAL SIGNS: Temperature 97.7 degrees, pulse 65, respirations 17, blood pressure 131/72. HEENT: Atraumatic, normocephalic. Extraocular movements intact. PERRLA. NECK: Supple. CHEST: Clear to auscultation. CARDIOVASCULAR: Regular rate and rhythm. ABDOMEN: Soft. Positive bowel sounds. EXTREMITIES: Left upper extremity fistula and no bleeding noted at present. Has also bilateral AKA. : No bladder distention. SKIN: Warm. LABORATORIES AND STUDIES: WBC 6.28, hemoglobin 13.5, hematocrit 40.9, platelets 181,000. INR 1.56. ASSESSMENT: A 69-year-old male with a history of end-stage renal disease, diabetes mellitus type 2, hypertension, coronary disease, had presented to the emergency department due to bleeding from his left upper extremity fistula. He was evaluated in the emergency department. Pressure dressings were placed. Bleeding seemed to have stopped. However due to patient being on anticoagulant, it was thought that we will place him for observation for further management. 1. Bleeding from left upper extremity fistula. 2. End-stage renal disease. 3. Diabetes mellitus type 2. 4. Hypertension. PLAN: 1. We will admit patient to medical floor with telemetry. 2. We will continue to observe to see if any bleeding reoccurs from fistula. 3. We will consult Nephrology for dialysis. 4. We will monitor blood glucose and put patient on sliding scale insulin regimen. 5. Monitor blood pressure. Resume antihypertensive agent. 6. We will continue to follow and reassess. Make further recommendation based on patient's clinical course. cc: Gerardo Longoria MD
[2019-08-15 05:01] LABS: BASO# 0.03 X1000 (0.0-0.2); BASO% 0.4 % (0.0-0.8); EOS# 0.17 X1000 (0.0-0.7); EOS% 2.4 % (0.0-10.0); HEMATOCRIT 39.1 % (42.0-52.0); LYMPH# 2.87 X1000 (1.2-3.4); LYMPH% 41.3 % (20.5-51.1); MCH 28.4 PG (27-31); MCHC 33.2 g/dL (33-37); MCV 85.4 FL (81-99); MONO# 0.82 X1000 (0.11-0.59); MONO% 11.8 % (1.7-9.3); MPV 10.4 FL (7.4-10.4); NEUT# 3.06 X1000 (1.4-6.5); NEUT% 44.1 % (42.2-75.2); PLT 187 X1000 (130-400); RBC 4.58 XMIL (4.7-6.1); RDW 18.1 % (11.5-14.5); WBC 6.95 X1000 (4.8-10.8)
[2019-08-15 05:29] LABS: CALCIUM 9.5 mg/dL (8.8-10.2); CREATININE 7.6 mg/dL (0.7-1.2); POTASSIUM 4.9 mmol/L (3.5-5.1)
[2019-08-15] MEDS ORDERED: NS 2,000 ML MISC PRN (06:26)
[2019-08-15] MEDS ORDERED: HEPARIN IV PRN (06:26)
[2019-08-15] MEDS ORDERED: TIGHT: 0.2 ML/HR FOR DIALYSIS MISC PRN (06:26)
[2019-08-15] MEDS: HUMULIN R SUBQ SCH ×2 (06:53→16:13)
--- NOTE | 2019-08-15 08:46 | VASCULAR LAB ---
DATE: 08/14/2019 PROCEDURE: Left upper extremity brachiocephalic fistula duplex. NEURODIAGNOSTIC TECHNICIAN: Veda. REQUESTING PHYSICIAN: Dr. Dias. INDICATIONS: Bleeding from access site earlier today. FINDINGS: Left upper extremity brachiocephalic arterial venous fistula was imaged. There is normal flow throughout with no evidence of pseudoaneurysm formation. IMPRESSION: No complications related to left brachiocephalic arterial venous fistula. cc: Rickie Laird MD
[2019-08-15] MEDS ORDERED: COREG PO SCH (09:00)
[2019-08-15] MEDS ORDERED: ASPIRIN PO SCH (09:00)
[2019-08-15] MEDS ORDERED: NORVASC PO SCH ×2 (09:00→18:00)
[2019-08-15] MEDS ORDERED: CHOLECALCIFEROL 50000 UNIT PO SCH (09:00)
[2019-08-15] MEDS ORDERED: NEURONTIN PO SCH (09:00)
[2019-08-15] MEDS ORDERED: XARELTO PO SCH (09:00)
[2019-08-15] MEDS ORDERED: FLOMAX PO SCH (09:00)
[2019-08-15] MEDS ORDERED: ULTRAM PO SCH (09:00)
--- NOTE | 2019-08-15 12:52 | NEPHROLOGY PROGRESS NOTE ---
DATE: 08/15/2019 SUBJECTIVE: Mr. Lazo states that he came in by ambulance with his left upper arm fistula bleeding status post dialysis treatment from Tuesday. Stated that he was taking his dressing off his fistula. He had to tug at it and after tugging it to remove the dressing, it started bleeding. Ambulance was called. He had a tourniquet placed. The bleeding had stopped once in the emergency room. Our office had been called in regards with care. Due to this occurrence the second time in less than two weeks, we had requested that they contact Dr. Wright, who is his surgeon, or the surgeon on-call to evaluate the fistula. It was felt that the patient needed to be kept overnight to monitor his dialysis this morning and is planned for discharge after dialysis. OBJECTIVE: Vital Signs: Temperature 97.7 degrees, blood pressure 145/69, heart rate is 81, [*] on room air. Last recorded saturation 96%. He has had 0 recorded in or out. Labs: Sodium 135, potassium 4.9, chloride is 90, CO2 is 26, BUN 80, creatinine 7.6, glucose 181, his anion gap is 19, calcium 9.5. White count 6.95, hemoglobin 13, hematocrit 39.1, with a platelet count of 187,000. His prothrombin time is 18.9 with an INR of 1.56, PTT 45.1. The patient continues on his outpatient anticoagulation medication of Xarelto. This has currently been stopped by the attending physician. Physical Examination: General: This is a 69-year-old, male who is known to our outpatient services, being seen at the hospital on a routine basis during his admissions. He appears chronically ill, in no acute distress. Skin is warm and dry. HEENT: Normocephalic, atraumatic. Conjunctivae are pale pink. He has ARMAND. Mucous membranes are dry. Neck: Supple. No evidence of JVD. Cardiovascular: Regular rate and rhythm. No murmur or gallop appreciated. Lungs: Clear to auscultation bilaterally. Equal excursion. He is on room air. Abdomen: Soft, nontender. Positive bowel sounds. Genitourinary: Not inspected. Minimal void with dialysis assist. Extremities: He has a left upper arm fistula. This is currently exposed to air. No dressing is on it. It has a good palpable thrill. He has bilateral lower extremity AKA. No edema present. Genitourinary: Not inspected. Minimal void with dialysis assist. Neurological: He is alert and oriented x3. His is at his bedside. ASSESSMENT AND PLAN: 1. Chronic kidney disease stage 5D. The patient is in need of his dialysis treatment today. We will attempt to stick his fistula. We have discussed current causes of his fistula bleeding. We have requested that he talk with his physician or his dialysis nurses in regards with not pulling his gauze off his fistula secondary to blood clot or to possibly wait until he goes back in for removal. We have also discussed possible placement of some type of a Vaseline gauze over this prior to putting pressure on it before discharge from the outpatient clinic. He states understanding. 2. Electrolytes and acid-base balance, with correction on dialysis. 3. Anemia. This is actually acceptable and in target. 4. Fistula bleeding. This has been evaluated by Dr. Laird for Dr. Wright. The patient is to be discharged after dialysis treatment today. I would like to thank you for allowing us to follow with this patient. Dictated by ALBERT Miranda for Jojo Cline MD cc: ALBERT Miranda
[2019-08-15 13:46] VITALS: BP 152/36
[2019-08-15] MEDS: PHOSLO PO SCH ×2 (16:11→16:13)
[2019-08-15] MEDS ORDERED: FLEXERIL PO SCH (21:00)
--- NOTE | 2019-08-16 06:35 | DISCHARGE SUMMARY ---
ADMISSION DATE: 08/15/2019 DISCHARGE DATE: 08/15/2019 DISCHARGE DIAGNOSES: 1. Bleeding, oozing from arteriovenous fistula in the left arm. 2. End-stage renal disease 3. Anemia of chronic inflammation associated with chronic renal failure. 4. Diabetes. PROCEDURES: None. HOSPITAL COURSE: Briefly, a 69-year-old male who had some bleeding from his fistula, which I guess was persistent. He came in and was evaluated. I do not think he had further bleeding after he was initially evaluated. Dr. Laird saw the patient, there was no thrombosis and he was observed. He had a hemodialysis access that was negative. The following day he was dialyzed without difficulty and felt that he could be discharged. The only thing I am a little concerned about, he is on Xarelto, which I think needs to be discontinued in favor of Eliquis. I think that has a safer safety profile in the setting of end-stage renal disease, so I am going to switch him to Eliquis and continue his other medications. Follow up CBC in 1 week, although his H and H really has not dropped much, 13 and 39 to 40. DISCHARGE CONDITION: Stable. DISCHARGE MEDICATIONS: Flexeril 10, amlodipine 5 daily, glargine 12 units daily, gabapentin 300 daily, Ultram daily, vitamin D2 50,000 units daily, vitamin D3 50,000 units daily, aspirin 81 daily, which we will hold for 24 hours, Coreg 25 b.i.d., Eliquis 2.5 b.i.d., which will start tomorrow night, Flomax 0.4 daily, PhosLo 667 t.i.d. DISCHARGE CONDITION: Stable. cc: MD Sukhjinder Milner MD Jason R. Seale, MD Anna M. Dumas, CRNP
[2019-08-21] MEDS ORDERED: VITAMIN D PO SCH (09:00)
== END 2019-08-15 17:25 | disposition home or self-care (01) ==
LOC: SUPCPDRO → ED 14:11 → EDIPHOLD 14:11 → SUATTDRO 08-15 00:45 → 4N 08-15 07:19 → 1N 08-15 12:39
PROVIDERS: ATTEND Internal Medicine